=== PATIENT | female | born 1950 | race Caucasian/White ===

== ENCOUNTER 2017-03-28 15:08 | Emergency (ER) | payer MEDICARE, OTHER ==
[2017-03-28] MEDS ORDERED: NEOSYNEPHRINE 0.5% NASAL SPRAY/DROPS NS ONE (15:37)
[2017-03-28] MEDS ORDERED: NEOSYNEPHRINE 0.5% NASAL SPRAY/DROPS ONE (15:44)
[2017-03-28 16:05] LABS: BASOPHIL % 0.6 % (0.0-0.4); Eosinophil % 6.2 % (0.00-5.0); Granulocytes % 56.4 % (36.0-66.0); Lymphocytes % 25.8 % (24.0-44.0); Mean Cell Volume 87.9 fl (78-100); Mean Corpuscular Hemoglobin 28.5 pg (26-32); Mean Platelet Volume 10.9 fl (6-9.5); Platelet Count 222 K/mm3 (150-450); Red Blood Count 4.73 M/mm3 (4.1-5.4); Red Cell Distribution Width 13.7 % (11.5-14.0); White Blood Count 6.7 K/mm3 (4.0-10.5)
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
[2017-03-28 16:21] LABS: ANION GAP 13.1 MEQ/L (5-15); Carbon Dioxide 28.5 mEq/L (21-32); Potassium 4.6 mEq/L (3.5-5.1)
[2017-03-28 16:29] LABS: INR 0.96 (0.8-3.0); PROTIME 10.8 SECONDS (9.95-12.35)
[2017-03-28 16:31] LABS: PTT 30.9 SECONDS (25.3-37.0)
[2017-03-28] MEDS ORDERED: BACIGUENT PACKET TP ONE (16:43)
[2017-03-28] MEDS ORDERED: BACIGUENT PACKET ONE (16:46)
[2017-03-28 16:51] VITALS: BP 158/81; PULSE 86; O2SAT 97
== END 2017-03-28 16:51 | disposition home or self-care (01) ==
LOC: ED 15:08
DX: R04.0 Epistaxis (principal); I10 Essential (primary) hypertension; R73.9 Hyperglycemia, unspecified; R51 Headache
CPT/HCPCS: 36415; 80048; 85025; 85610; 85730; 99282; A9270-GY

== ENCOUNTER 2018-08-13 10:57 | Emergency (ER) | payer MEDICARE, OTHER ==
[2018-08-13] MEDS ORDERED: Sodium Chloride 0.9% 1000 ML 1,000 ML IV STA (11:13)
[2018-08-13 11:23] VITALS: O2SAT 100
[2018-08-13] MEDS ORDERED: PROTONIX 40 MG IV*** 80 MG in Sodium Chloride 0.9% 500 ML 500 ML IV SCH (11:30)
--- NOTE | 2018-08-13 11:36 | ERPHSYRPT ---
- History of Present Illness Source: patient Exam Limitations: no limitations Patient Subjective Stated Complaint: george has a martinez of dark stool this AM. states was sticky, did not see red. has a hx of diarrhea/hemorrhoids. Triage Nursing Assessment: alert and oriented in no distress. george had an episode of dark sticky stool this AM. denies abdominal pain at this time. soft non tender. states has hx hemorrhoids. skin pink, warm/dry. Physician History: Pt is a pleasant 67 y/o female that presented to the ED, with recent BM that was sticky, maroon colored, and hard to clean. Pt states, has history of external hemorrhoids, Colonoscopy that was done about 5-6 years ago, that showed polyps that were removed. Pt does not remember any diverticulosis. Pt states, she is taking Ibuprofen, several times weekly for BISWAS. She is on ASA 81mg daily as well. Pt denies N/V or abdominal pain. Pt denies SOB or cough. No chest pain or palpitations. No F/C/S. Pt states, only 1 melanotic stool today. Timing/Duration: today Severity: moderate Modifying Factors: Improves With: nothing Associated Symptoms: denies symptoms Allergies/Adverse Reactions: Penicillins Allergy (Verified 08/13/18 11:56) Tightness of Throat Sulfa (Sulfonamide Antibiotics) Allergy (Verified 08/13/18 11:56) Nausea Home Medications: Insulin Aspart [NovoLOG Insulin] 15 unit SQ TID 11/05/14 [History] Insulin Glargine [Lantus Insulin] 30 unit SQ DAILY 11/05/14 [History] Aspirin EC 325 mg [Ecotrin 325 MG] 325 mg PO DAILY 07/01/15 [History] Hx Tetanus, Diphtheria Vaccination/Date Given: No Hx Influenza Vaccination/Date Given: Yes Hx Pneumococcal Vaccination/Date Given: Yes - Review of Systems Constitutional: No Symptoms Eyes: No Symptoms Ears, Nose, & Throat: No Symptoms Respiratory: No Symptoms Cardiac: No Symptoms Abdominal/Gastrointestinal: Melena Genitourinary Symptoms: No Symptoms Musculoskeletal: No Symptoms Skin: No Symptoms Neurological: No Symptoms Psychological: No Symptoms - Past Medical History Pertinent Past Medical History: Yes Neurological History: TIA ENT History: No Pertinent History Cardiac History: High Cholesterol, Hypertension Respiratory History: No Pertinent History Endocrine Medical History: Diabetes Type II Musculoskeletal History: No Pertinent History GI Medical History: GERD, Gallbladder Disease History: No Pertinent History Psycho-Social History: No Pertinent History Female Reproductive Disorders: No Pertinent History - Past Surgical History Past Surgical History: Yes Neuro Surgical History: No Pertinent History Cardiac: No Pertinent History Respiratory: No Pertinent History Gastrointestinal: Cholecystectomy Genitourinary: No Pertinent History Musculoskeletal: No Pertinent History Female Surgical History: No Pertinent History Other Surgical History: colonoscopy w/ polyps removed - Social History Smoking Status: Never smoker How long have you smoked: 11 years Exposure to second hand smoke: No Alcohol Use: None Drug Use: none Patient Lives Alone: No Significant Family History: no pertinent family hx - Female History Hx Now: No - Nursing Vital Signs Nursing Vital Signs: Initial Vital Signs Temperature 97.5 F 08/13/18 11:07 Pulse Rate 72 08/13/18 11:07 Respiratory Rate 18 08/13/18 11:07 Blood Pressure 153/88 08/13/18 11:07 O2 Sat by Pulse Oximetry 100 08/13/18 11:07 Pain Scale Pain Intensity 0 - Physical Exam General Appearance: no apparent distress Eye Exam: PERRL/EOMI, eyes nml inspection Ears, Nose, Throat Exam: normal ENT inspection, TMs normal, pharynx normal, moist mucous membranes Neck Exam: normal inspection, non-tender, supple, full range of motion Respiratory Exam: normal breath sounds, lungs clear, No respiratory distress Cardiovascular Exam: regular rate/rhythm, normal heart sounds, normal peripheral pulses Gastrointestinal/Abdomen Exam: soft, normal bowel sounds, No tenderness, No mass Rectal Exam: hemorrhoids, black stool, blood Back Exam: normal inspection, normal range of motion, No CVA tenderness, No vertebral tenderness Extremity Exam: normal inspection, normal range of motion, pelvis stable Neurologic Exam: alert, oriented x 3, cooperative, normal mood/affect, nml cerebellar function, nml station & gait, sensation nml, No motor deficits Skin Exam: normal color, warm, dry, No rash Lymphatic Exam: No adenopathy SpO2: 100 Oxygen Delivery: Room Air Ordered Tests: Active Orders 24 hr Category Date Time Status IV Insertion-2nd Peripheral STAT Care 08/13/18 11:13 Active CBC W DIFF Stat Lab 08/13/18 11:35 Completed CMP Stat Lab 08/13/18 11:35 Completed Lactic Acid Stat Lab 08/13/18 11:35 Completed Occult Blood,Stool Other Stat Lab 08/13/18 11:35 Completed PROTIME WITH INR Stat Lab 08/13/18 11:35 Completed PTT Stat Lab 08/13/18 11:35 Completed Medication Summary Discontinued Medications Generic Name Dose Route Start Last Admin Trade Name [place] PRN Reason Stop Dose Admin Sodium Chloride 1,000 mls @ 999 mls/hr 08/13/18 11:13 08/13/18 11:46 Sodium Chloride 0.9% 1000 Ml IV 08/13/18 12:13 999 mls/hr .Q1H1M STA Administration Pantoprazole Sodium 80 mg/ 500 mls @ 50 mls/hr 08/13/18 11:30 08/13/18 11:47 Sodium Chloride IV 09/12/18 11:29 Not Given .Q10H JUAN F Sodium Chloride Confirm 08/13/18 11:39 Sodium Chloride 0.9% 1000 Ml Administered 08/13/18 11:40 Dose 1,000 mls @ ud .ROUTE .[facility] ONE Pantoprazole Sodium Confirm 08/13/18 11:39 Protonix 40 Mg Iv Administered 08/13/18 11:40 Dose 80 mg IV .STK-[facility] ONE Pantoprazole Sodium 80 mg 08/13/18 11:42 08/13/18 11:45 Protonix 40 Mg Iv IV 08/13/18 11:43 80 mg STAT ONE Administration Lab/Rad Data: Laboratory Result Diagrams 08/13/18 11:35 08/13/18 11:35 Laboratory Results 08/13/18 08/13/18 08/13/18 Range/Units 11:35 11:35 11:35 WBC (4.0-10.5) K/mm3 RBC (4.1-5.4) M/mm3 Hgb (12.0-16.0) gm/dl Hct (35-47) % MCV (78-100) fl MCH (26-32) pg MCHC (32-36) g/dl RDW (11.5-14.0) % Plt Count (150-450) K/mm3 MPV (6-9.5) fl Gran % (36.0-66.0) % Eos # (Auto) (0-0.5) Absolute Lymphs (auto) (1.0-4.6) Absolute Monos (auto) (0.0-1.3) Lymphocytes % (24.0-44.0) % Monocytes % (0.0-12.0) % Eosinophils % (0.00-5.0) % Basophils % (0.0-0.4) % Absolute Granulocytes (1.4-6.9) Basophils # (0-0.4) PT 12.0 (9.95-12.35) SECONDS INR 1.03 (0.8-3.0) APTT 29.6 (25.3-37.0) SECONDS Sodium 141 (137-145) mmol/L Potassium 4.5 (3.5-5.1) mmol/L Chloride 104 (98-107) mmol/L Carbon Dioxide 28 (22-30) mmol/L Anion Gap 13.3 (5-15) MEQ/L BUN 17 (7-17) mg/dL Creatinine 0.85 (0.52-1.04) mg/dL Estimated GFR > 60.0 ML/MIN Glucose 115 H (74-106) mg/dL Lactic Acid (0.4-2.0) Calcium 9.3 (8.4-10.2) mg/dL Total Bilirubin 0.50 (0.2-1.3) mg/dL AST 39 H (14-36) U/L ALT 31 (0-35) U/L Alkaline Phosphatase 142 H (38-126) U/L Serum Total Protein 7.2 (6.3-8.2) g/dL Albumin 4.1 (3.5-5.0) g/dL Stool Occult Blood POSITIVE (Negative) 08/13/18 08/13/18 Range/Units 11:35 11:35 WBC 6.5 (4.0-10.5) K/mm3 RBC 4.32 (4.1-5.4) M/mm3 Hgb 12.5 (12.0-16.0) gm/dl Hct 39.1 (35-47) % MCV 90.5 (78-100) fl MCH 28.9 (26-32) pg MCHC 32.0 (32-36) g/dl RDW 13.2 (11.5-14.0) % Plt Count 180 (150-450) K/mm3 MPV 11.3 H (6-9.5) fl Gran % 55.6 (36.0-66.0) % Eos # (Auto) 0.58 H (0-0.5) Absolute Lymphs (auto) 1.52 (1.0-4.6) Absolute Monos (auto) 0.75 (0.0-1.3) Lymphocytes % 23.5 L (24.0-44.0) % Monocytes % 11.6 (0.0-12.0) % Eosinophils % 9.0 H (0.00-5.0) % Basophils % 0.3 (0.0-0.4) % Absolute Granulocytes 3.59 (1.4-6.9) Basophils # 0.02 (0-0.4) PT (9.95-12.35) SECONDS INR (0.8-3.0) APTT (25.3-37.0) SECONDS Sodium (137-145) mmol/L Potassium (3.5-5.1) mmol/L Chloride (98-107) mmol/L Carbon Dioxide (22-30) mmol/L Anion Gap (5-15) MEQ/L BUN (7-17) mg/dL Creatinine (0.52-1.04) mg/dL Estimated GFR ML/MIN Glucose (74-106) mg/dL Lactic Acid 1.2 (0.4-2.0) Calcium (8.4-10.2) mg/dL Total Bilirubin (0.2-1.3) mg/dL AST (14-36) U/L ALT (0-35) U/L Alkaline Phosphatase (38-126) U/L Serum Total Protein (6.3-8.2) g/dL Albumin (3.5-5.0) g/dL Stool Occult Blood (Negative) - Progress Progress: unchanged Will see patient in: office Counseled pt/family regarding: lab results, diagnosis, need for follow-up - Departure Time of Disposition: 01:20 Departure Disposition: Home Clinical Impression: Upper GI bleed Condition: Stable Critical Care Time: No Referrals: SUSIE CARTER NP [Primary Care Provider] - Additional Instructions: Pt was diagnosed with upper GI bleed. She has stable Hgb above 12. No more melanotic stool. Given Protonix 80mg IV once. Appointment with ASHLEY Pedroza was scheduled for the upcoming Saturday at 2:45pm. Pt should stop her ASA 325mg daily, and avoid NSAIDs. She should continue Protonix daily. Prescription was given. Pt should f/u with her PCP in a week. Prescriptions: PANTOPRAZOLE 40 mg Tablet [Protonix 40MG Tablet] 40 mg PO QAM 30 Days tab
[2018-08-13] MEDS ORDERED: Sodium Chloride 0.9% 1000 ML 1,000 ML ONE (11:39)
[2018-08-13] MEDS ORDERED: PROTONIX 40 MG IV IV ONE ×2 (11:39→11:42)
[2018-08-13 11:43] LABS: BASOPHIL % 0.3 % (0.0-0.4); Basophil (Absolute #) 0.02 (0-0.4); Eosinophil (Absolute #) 0.58 (0-0.5); Granulocyte Absolute (ANC) 3.59 (1.4-6.9); Granulocytes % 55.6 % (36.0-66.0); Hematocrit 39.1 % (35-47); Hemoglobin 12.5 gm/dl (12.0-16.0); Lymphocyte (Absolute #) 1.52 (1.0-4.6); Lymphocytes % 23.5 % (24.0-44.0); Mean Cell Volume 90.5 fl (78-100); Mean Corpuscular Hemoglobin 28.9 pg (26-32); Mean Platelet Volume 11.3 fl (6-9.5); Monocyte (Absolute #) 0.75 (0.0-1.3); Monocytes % 11.6 % (0.0-12.0); Platelet Count 180 K/mm3 (150-450); Red Blood Count 4.32 M/mm3 (4.1-5.4); Red Cell Distribution Width 13.2 % (11.5-14.0); White Blood Count 6.5 K/mm3 (4.0-10.5)
[2018-08-13 12:00] VITALS: PULSE 78
[2018-08-13 12:00] LABS: INR 1.03 (0.8-3.0)
[2018-08-13 12:03] LABS: PTT 29.6 SECONDS (25.3-37.0)
[2018-08-13 12:05] LABS: ALBUMIN 4.1 g/dL (3.5-5.0); ALKALINE PHOSPHATASE 142 U/L (38-126); ANION GAP 13.3 MEQ/L (5-15); BLOOD UREA NITROGEN 17 mg/dL (7-17); CHLORIDE 104 mmol/L (98-107); Calcium 9.3 mg/dL (8.4-10.2); Carbon Dioxide 28 mmol/L (22-30); Creatinine 1 0.85 mg/dL (0.52-1.04); Glucose 115 mg/dL (74-106); Potassium 4.5 mmol/L (3.5-5.1); SGOT/AST 39 U/L (14-36); SGPT/ALT 31 U/L (0-35); SODIUM 141 mmol/L (137-145); Total Protein 7.2 g/dL (6.3-8.2)
[2018-08-13 13:23] VITALS: BP 153/88
== END 2018-08-13 13:55 | disposition home or self-care (01) ==
LOC: ED 10:57
DX: K92.2 Gastrointestinal hemorrhage, unspecified (principal); E11.9 Type 2 diabetes mellitus without complications; Z79.4 Long term (current) use of insulin; Z79.82 Long term (current) use of aspirin
CPT/HCPCS: 36000; 36415; 80053; 82272; 82962; 83605; 85025; 85610; 85730; 96360; 96374; 99284

== ENCOUNTER 2018-11-06 10:45 | Emergency (ER) | payer MEDICARE, OTHER ==
[2018-11-06] MEDS ORDERED: Sodium Chloride 0.9% 1000 ML 1,000 ML IV STA (11:04)
[2018-11-06] MEDS ORDERED: Sodium Chloride 0.9% 1000 ML 1,000 ML ONE (11:10)
--- NOTE | 2018-11-06 11:11 | ERPHSYRPT ---
- History of Present Illness Time Seen by Provider: 11/06/18 10:59 Historian: patient Exam Limitations: no limitations Patient Subjective Stated Complaint: PT C/O ABD PAIN, NAUSEA, DIARRHEA FOR "AT LEAST A YEAR". PT STATES SHE HAD COLONOSCOPY 3 DAYS AGO AND TOLD SHE HAS A RECTAL PROLAPSE AND NEEDS SURGERY. PT STATES PAIN WORSENED LAST NIGHT. Triage Nursing Assessment: PINK/WARM/DRY, RESP EASY, A&OX4, GAIT NOT OBSERVED, ABD SOFT AND LUQ TENDER WITH PALPATION. Physician History: 67-year-old white female with history of TIA, hyperlipidemia, high blood pressure, diabetes type 2, GERD Who states that she's had abdominal pain nausea symptoms for a year he apparently left-sided lower abdominal pain She states that she has had an MRI secondary to this and she had a colonoscopy which was performed 3 days ago. She states that this morning around 3:00 she woke up feeling sweaty diaphoretic she states she took some orange juice and was feeling better. Medics were summoned and they gave her some Zofran for nausea and now she is feeling better she does state she continues to have some pain in her left lower quadrant. 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 Past medical history includes TIA, hyperlipidemia, high blood pressure, diabetes type 2, GERD, gallbladder disease, cholecystectomy, colonic polyps. Past surgical history includes cholecystectomy, colonic polyps through colonoscopy Social history patient denies tobacco alcohol or illicit drugs Timing/Duration: other (chronic abdominal pain, colonoscopy 3 days ago, woke up diaphoretic this morning improved with orange ju) Quality: aching, cramping Abdominal Pain Onset Location: LUQ Pain Radiation: no radiation Severity of Pain-Max: moderate Severity of Pain-Current: mild Modifying Factors: Improves With: nothing Associated Symptoms: nausea, No back, No chest pain, No diaphoresis, No diarrhea , No fever/chills, No fatigue, No headache, No heartburn, No loss of appetite, No neck pain, No rash, No shortness of breath, No syncope, No vomiting, No weakness Previous symptoms: recently seen (colonoscopy 3 days ago for the same, has had MRI of the abdomen for the same) Allergies/Adverse Reactions: Penicillins Allergy (Verified 11/06/18 10:46) Tightness of Throat Sulfa (Sulfonamide Antibiotics) Allergy (Verified 11/06/18 10:46) Nausea Home Medications: Insulin Aspart [NovoLOG Insulin] 15 unit SQ TID 11/05/14 [History] Insulin Glargine [Lantus Insulin] 30 unit SQ DAILY 11/05/14 [History] Aspirin EC 325 mg [Ecotrin 325 MG] 325 mg PO DAILY 07/01/15 [History] Hx Tetanus, Diphtheria Vaccination/Date Given: No Hx Influenza Vaccination/Date Given: Yes Hx Pneumococcal Vaccination/Date Given: Yes Immunizations Up to Date: Yes - Review of Systems Constitutional: No Symptoms Eyes: No Symptoms Ears, Nose, & Throat: No Symptoms Respiratory: No Cough, No Dyspnea Cardiac: No Chest Pain, No Edema, No Syncope Abdominal/Gastrointestinal: Abdominal Pain, Nausea, No Vomiting, No Diarrhea, No Constipation, No Hematemesis, No Hematochezia, No Melena, No Dysphagia, No Appetite Changes Genitourinary Symptoms: No Dysuria Musculoskeletal: No Back Pain, No Neck Pain Skin: No Rash Neurological: No Dizziness, No Focal Weakness, No Sensory Changes Psychological: No Symptoms Endocrine: No Symptoms All Other Systems: Reviewed and Negative - Past Medical History Pertinent Past Medical History: Yes Neurological History: TIA ENT History: No Pertinent History Cardiac History: High Cholesterol, Hypertension Respiratory History: No Pertinent History Endocrine Medical History: Diabetes Type II Musculoskeletal History: No Pertinent History GI Medical History: GERD, Gallbladder Disease History: No Pertinent History Psycho-Social History: No Pertinent History Female Reproductive Disorders: No Pertinent History - Past Surgical History Past Surgical History: Yes Neuro Surgical History: No Pertinent History Cardiac: No Pertinent History Respiratory: No Pertinent History Gastrointestinal: Cholecystectomy Genitourinary: No Pertinent History Musculoskeletal: No Pertinent History Female Surgical History: No Pertinent History Other Surgical History: colonoscopy w/ polyps removed - Social History Smoking Status: Never smoker How long have you smoked: 11 years Exposure to second hand smoke: No Alcohol Use: None Drug Use: none Patient Lives Alone: Yes Significant Family History: no pertinent family hx - Female History Hx Now: No - Nursing Vital Signs Nursing Vital Signs: Initial Vital Signs Temperature 98.5 F 11/06/18 10:48 Pulse Rate 88 11/06/18 10:48 Respiratory Rate 16 11/06/18 10:48 Blood Pressure 134/70 11/06/18 10:48 O2 Sat by Pulse Oximetry 100 11/06/18 10:48 Pain Scale Pain Intensity 0 - Physical Exam General Appearance: no apparent distress, alert Eye Exam: PERRL/EOMI, eyes nml inspection Ears, Nose, Throat Exam: normal ENT inspection, pharynx normal, moist mucous membranes Neck Exam: normal inspection, non-tender, supple, full range of motion Respiratory Exam: normal breath sounds, lungs clear, No respiratory distress Cardiovascular Exam: regular rate/rhythm, normal heart sounds Gastrointestinal/Abdomen Exam: soft, normal bowel sounds, tenderness (left lower quadrant tenderness) Rectal Exam: other (few hemorrhoids, no prolapse noted) Back Exam: normal inspection, normal range of motion, No CVA tenderness, No vertebral tenderness Extremity Exam: normal inspection, normal range of motion, pelvis stable Neurologic Exam: alert, oriented x 3, cooperative, 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 No infiltrates to suggest pneumonia or other acute cardiopulmonary disease is seen 2. No evidence of bowel obstruction however there are some scattered air-fluid levels within the right lower quadrant and left hemicolon, perhaps due to an ileus. No free intraperitoneal air is seen) Ordered Tests: Active Orders 24 hr Category Date Time Status EKG-ER Only STAT Care 11/06/18 13:39 Active IV Insertion STAT Care 11/06/18 11:04 Active OBSTR/ACUTE ABDOMEN SERIES Stat Exams 11/06/18 12:14 Completed AMYLASE Stat Lab 11/06/18 11:05 Completed CBC W DIFF Stat Lab 11/06/18 11:04 Completed CMP Stat Lab 11/06/18 11:05 Completed LIPASE Stat Lab 11/06/18 11:05 Completed Lactic Acid Stat Lab 11/06/18 11:32 Completed UA W/RFX UR CULTURE Stat Lab 11/06/18 Completed Medication Summary Discontinued Medications Generic Name Dose Route Start Last Admin Trade Name [place] PRN Reason Stop Dose Admin Sodium Chloride 1,000 mls @ 999 mls/hr 11/06/18 11:04 11/06/18 11:11 Sodium Chloride 0.9% 1000 Ml IV 11/06/18 12:04 999 mls/hr .Q1H1M STA Administration Sodium Chloride Confirm 11/06/18 11:10 Sodium Chloride 0.9% 1000 Ml Administered 11/06/18 11:11 Dose 1,000 mls @ ud .ROUTE .STK-MED ONE Lab/Rad Data: Laboratory Result Diagrams 11/06/18 11:04 11/06/18 11:05 Laboratory Results 11/06/18 11/06/18 11/06/18 Range/Units Unknown 11:32 11:05 WBC (4.0-10.5) K/mm3 RBC (4.1-5.4) M/mm3 Hgb (12.0-16.0) gm/dl Hct (35-47) % MCV (78-100) fl MCH (26-32) pg MCHC (32-36) g/dl RDW (11.5-14.0) % Plt Count (150-450) K/mm3 MPV (6-9.5) fl Gran % (36.0-66.0) % Eos # (Auto) (0-0.5) Absolute Lymphs (auto) (1.0-4.6) Absolute Monos (auto) (0.0-1.3) Lymphocytes % (24.0-44.0) % Monocytes % (0.0-12.0) % Eosinophils % (0.00-5.0) % Basophils % (0.0-0.4) % Absolute Granulocytes (1.4-6.9) Basophils # (0-0.4) Sodium 139 (137-145) mmol/L Potassium 4.4 (3.5-5.1) mmol/L Chloride 101 (98-107) mmol/L Carbon Dioxide 25 (22-30) mmol/L Anion Gap 17.0 H (5-15) MEQ/L BUN 19 H (7-17) mg/dL Creatinine 1.07 H (0.52-1.04) mg/dL Estimated GFR 54.0 ML/MIN Glucose 137 H (74-106) mg/dL Lactic Acid 1.8 (0.4-2.0) Calcium 9.2 (8.4-10.2) mg/dL Total Bilirubin 0.90 (0.2-1.3) mg/dL AST 73 H (14-36) U/L ALT 44 H (0-35) U/L Alkaline Phosphatase 172 H (38-126) U/L Serum Total Protein 8.3 H (6.3-8.2) g/dL Albumin 4.6 (3.5-5.0) g/dL Amylase 72 (30-110) U/L Lipase 70 (23-300) U/L Urine Color YELLOW (YELLOW) Urine Appearance CLEAR (CLEAR) Urine pH 5.0 (5-6) Ur Specific [place] 1.024 (1.005-1.025) Urine Protein NEGATIVE (Negative) Urine Ketones NEGATIVE (NEGATIVE) Urine Blood NEGATIVE (0-5) Karlo/ul Urine Nitrite NEGATIVE (NEGATIVE) Urine Bilirubin NEGATIVE (NEGATIVE) Urine Urobilinogen NEGATIVE (0-1) mg/dL Ur Leukocyte Esterase NEGATIVE (NEGATIVE) Urine WBC (Auto) NONE (0-5) /HPF Urine RBC (Auto) NONE SEEN (0-2) /HPF U Epithel Cells (Auto) NONE (FEW) /HPF Urine Bacteria (Auto) NONE SEEN (NEGATIVE) /HPF Urine Culture Reflexed NO (NO) Urine Glucose >=500 (NEGATIVE) mg/dL 11/06/18 Range/Units 11:04 WBC 16.1 H (4.0-10.5) K/mm3 RBC 5.20 (4.1-5.4) M/mm3 Hgb 14.9 (12.0-16.0) gm/dl Hct 46.6 (35-47) % MCV 89.6 (78-100) fl MCH 28.7 (26-32) pg MCHC 32.0 (32-36) g/dl RDW 14.1 H (11.5-14.0) % Plt Count 201 (150-450) K/mm3 MPV 10.5 H (6-9.5) fl Gran % 87.8 H (36.0-66.0) % Eos # (Auto) 0.01 (0-0.5) Absolute Lymphs (auto) 0.98 L (1.0-4.6) Absolute Monos (auto) 0.95 (0.0-1.3) Lymphocytes % 6.1 L (24.0-44.0) % Monocytes % 5.9 (0.0-12.0) % Eosinophils % 0.1 (0.00-5.0) % Basophils % 0.1 (0.0-0.4) % Absolute Granulocytes 14.11 H (1.4-6.9) Basophils # 0.02 (0-0.4) Sodium (137-145) mmol/L Potassium (3.5-5.1) mmol/L Chloride (98-107) mmol/L Carbon Dioxide (22-30) mmol/L Anion Gap (5-15) MEQ/L BUN (7-17) mg/dL Creatinine (0.52-1.04) mg/dL Estimated GFR ML/MIN Glucose (74-106) mg/dL Lactic Acid (0.4-2.0) Calcium (8.4-10.2) mg/dL Total Bilirubin (0.2-1.3) mg/dL AST (14-36) U/L ALT (0-35) U/L Alkaline Phosphatase (38-126) U/L Serum Total Protein (6.3-8.2) g/dL Albumin (3.5-5.0) g/dL Amylase (30-110) U/L Lipase (23-300) U/L Urine Color (YELLOW) Urine Appearance (CLEAR) Urine pH (5-6) Ur Specific [place] (1.005-1.025) Urine Protein (Negative) Urine Ketones (NEGATIVE) Urine Blood (0-5) Karlo/ul Urine Nitrite (NEGATIVE) Urine Bilirubin (NEGATIVE) Urine Urobilinogen (0-1) mg/dL Ur Leukocyte Esterase (NEGATIVE) Urine WBC (Auto) (0-5) /HPF Urine RBC (Auto) (0-2) /HPF U Epithel Cells (Auto) (FEW) /HPF Urine Bacteria (Auto) (NEGATIVE) /HPF Urine Culture Reflexed (NO) Urine Glucose (NEGATIVE) mg/dL - Progress Progress: improved Progress Note: 11/06/18 13:42 Arrives with medics with complaint that she felt like her sugars were low earlier today she took orange juice apparently was feeling better after taking this when medics arrived patient with normal glucose she states that she has a 1 year history of abdominal pain had a colonoscopy several days ago and had recently had an MRI of her abdomen she was tender in the left lower quadrant of the abdomen. Patient is feeling better after receiving 1 L of normal saline she does have a mild elevated white count of 16.1 hemoglobin is 14.9 hematocrit 46.6 platelets are 201 patient's amylase is 72 lipase is 70 urine is yellow there is greater than 500 glucose in the urine Chemistry sodium 139 potassium 4.4 chloride 101 bicarbonate 25 BUN 19 creatinine 1.07 glucose 137 The patient's acute abdominal series remarkable for no acute disease process on the chest abdomen remarkable for no evidence of bowel obstruction there are some scattered air-fluid levels within the right lower quadrant and left hemicolon perhaps due to ileus no free intraperitoneal air is seen patient is noted to have just had a colonoscopy Will go ahead and discharge patient patient to go to clear fluids 24-48 hours if abdominal pain. Follow-up with her family doctor. Return for acute distress or for severe symptoms. . - Departure Time of Disposition: 13:50 Departure Disposition: Home Clinical Impression: history of recent colonoscopy, Suspected hypoglycemic episode Abdominal pain Qualifiers: Abdominal location: left lower quadrant Qualified Code(s): R10.32 - Left lower quadrant pain Condition: Fair Critical Care Time: No Referrals: SUSIE CARTER NP [Primary Care Provider] -
[2018-11-06 11:34] LABS: BASOPHIL % 0.1 % (0.0-0.4); Basophil (Absolute #) 0.02 (0-0.4); Eosinophil % 0.1 % (0.00-5.0); Eosinophil (Absolute #) 0.01 (0-0.5); Granulocyte Absolute (ANC) 14.11 (1.4-6.9); Granulocytes % 87.8 % (36.0-66.0); Hematocrit 46.6 % (35-47); Hemoglobin 14.9 gm/dl (12.0-16.0); Lymphocyte (Absolute #) 0.98 (1.0-4.6); Lymphocytes % 6.1 % (24.0-44.0); Mean Cell Volume 89.6 fl (78-100); Mean Corpuscular Hemoglobin 28.7 pg (26-32); Mean Platelet Volume 10.5 fl (6-9.5); Monocyte (Absolute #) 0.95 (0.0-1.3); Monocytes % 5.9 % (0.0-12.0); Platelet Count 201 K/mm3 (150-450); Red Cell Distribution Width 14.1 % (11.5-14.0); White Blood Count 16.1 K/mm3 (4.0-10.5)
[2018-11-06 11:47] LABS: ALBUMIN 4.6 g/dL (3.5-5.0); BILIRUBIN,TOTAL 0.9 mg/dL (0.2-1.3); Calcium 9.2 mg/dL (8.4-10.2); Creatinine 1 1.07 mg/dL (0.52-1.04); Potassium 4.4 mmol/L (3.5-5.1); Total Protein 8.3 g/dL (6.3-8.2)
[2018-11-06 12:20] LABS: Appearance CLEAR (CLEAR); Bilirubin NEGATIVE (NEGATIVE); Blood NEGATIVE Ery/ul (0-5); Glucose >=500 mg/dL (NEGATIVE); Ketones NEGATIVE (NEGATIVE); Leukocyte Esterase NEGATIVE (NEGATIVE); Nitrite NEGATIVE (NEGATIVE); Protein,Urine Dip NEGATIVE (Negative); Specific Gravity 1.024 (1.005-1.025); Urobilinogen NEGATIVE mg/dL (0-1)
[2018-11-06 12:28] LABS: RBC NONE SEEN /HPF (0-2)
[2018-11-06 12:29] LABS: Bacteria NONE SEEN /HPF (NEGATIVE)
--- NOTE | 2018-11-06 13:29 | XRAY ---
Exam: Acute abdominal series from 11/06/2018. Comparison: None. Indication: Complains of left lower quadrant abdominal pain, history of recent colonoscopy, lethargic. Findings: Upright PA chest film reveals a normal heart size and contour. Mild atherosclerotic calcification within the aortic arch and slight tortuosity of the descending thoracic aorta are seen. The nadira and mediastinal structures appear unremarkable. There is adequate inflation of the lung granado. The pulmonary vascularity appears within normal limits. There is a small calcified granuloma at the lateral right lung base. No air space infiltrates, pneumothorax, or pleural fluid is seen. 2 supine images and an upright image of the abdomen were obtained. I see no evidence of bowel distention. However, I do note some scattered air-fluid levels within distal small bowel within the right lower quadrant and within the left hemicolon. This may be due to a mild ileus. There is no evidence of bowel obstruction or free intraperitoneal air. No hepatosplenomegaly is seen. External leads overlie the left upper quadrant. Surgical clips consistent with prior cholecystectomy are seen within the right upper quadrant. No suspicious abdominal calcifications are seen. There is a minimal rotary dextroscoliosis centered at L2 on the upright image. Moderate degenerative changes are seen at L4 and L5. Otherwise, the bones appear grossly intact. The psoas muscle margins are well seen bilaterally. The urinary bladder is mildly distended. Impression: 1. No infiltrates to suggest pneumonia or other acute cardiopulmonary disease is seen. 2. I see no evidence of bowel obstruction. However, there are some scattered air-fluid levels within the right lower quadrant and left hemicolon, perhaps due to an ileus. No free intraperitoneal air is seen. 3. Other incidental findings, as discussed above.
[2018-11-06 14:37] VITALS: BP 140/68; PULSE 85; O2SAT 93
== END 2018-11-06 14:47 | disposition home or self-care (01) ==
LOC: ED 10:45
DX: R10.32 Left lower quadrant pain (principal); Z98.890 Other specified postprocedural states; I10 Essential (primary) hypertension; E78.00 Pure hypercholesterolemia, unspecified; E11.9 Type 2 diabetes mellitus without complications; F41.9 Anxiety disorder, unspecified; Z86.010 Personal history of colon polyps; E78.5 Hyperlipidemia, unspecified; Z86.73 Personal history of transient ischemic attack (TIA), and cerebral infarction without residual deficits
CPT/HCPCS: 36000; 36415; 74022; 80053; 81001; 82150; 83605; 83690; 85025; 93005; 96360; 99284

== ENCOUNTER 2019-03-18 11:34 | Emergency (ER) | payer MEDICARE, OTHER ==
--- NOTE | 2019-03-18 12:09 | ERPHSYRPT ---
- History of Present Illness Time Seen by Provider: 03/18/19 11:59 Source: patient Exam Limitations: no limitations Patient Subjective Stated Complaint: Was running errands when she suddenly became extremely weak, dizzy, and left arm feels numb and tingly Triage Nursing Assessment: Pt brought to the ER in a wheelchair, appears lethargic, hypertensive, pulses normal, denies pain, PERRL, no difficulties with strength Physician History: 68-year-old white female arrives with complaints that she was out running errands at approximately 10:00 when she suddenly began to feel weak, dizzy, felt like she had paresthesias in her left arm she did not have any movement problems did not have any problems speaking she states that she feels "disconnected" right now. She has no chest pain no nausea no vomiting no shortness of breath. Past medical history includes TIA, hyperlipidemia, high blood pressure, diabetes type 2, GERD, gallbladder disease. Past surgical history includes cholecystectomy colonoscopy with polyps. Timing/Duration: today (10:00 morning) Severity: mild Modifying Factors: Improves With: nothing Associated Symptoms: weakness, other (dizziness, paresthesia left arm), No nausea, No vomiting, No abdominal pain, No shortness of breath, No heartburn, No diaphoresis, No cough, No chills, No chest pain, No fever, No headaches, No loss of appetite, No malaise, No rash, No syncope, No seizure Allergies/Adverse Reactions: metformin Allergy (Verified 03/18/19 11:55) Penicillins Allergy (Verified 11/06/18 10:46) Tightness of Throat Sulfa (Sulfonamide Antibiotics) Allergy (Verified 11/06/18 10:46) Nausea Home Medications: Atorvastatin Calcium [Lipitor] 40 mg PO HS 03/18/19 [History] Dapagliflozin Propanediol [Farxiga] 10 mg PO DAILY 03/18/19 [History] Dulaglutide [Trulicity] 1.5 mg SQ WEEKLY 03/18/19 [History] Insulin Degludec [Tresiba Flextouch U-200] 40 units SQ DAILY 03/18/19 [History] Hx Tetanus, Diphtheria Vaccination/Date Given: No Hx Influenza Vaccination/Date Given: Yes Hx Pneumococcal Vaccination/Date Given: Yes - Review of Systems Constitutional: No Fever, No Chills Eyes: No Symptoms Ears, Nose, & Throat: No Symptoms Respiratory: No Cough, No Dyspnea Cardiac: No Chest Pain, No Edema, No Syncope Abdominal/Gastrointestinal: No Abdominal Pain, No Nausea, No Vomiting, No Diarrhea Genitourinary Symptoms: No Dysuria Musculoskeletal: No Back Pain, No Neck Pain Skin: No Rash Neurological: No Dizziness, No Focal Weakness, No Sensory Changes Psychological: No Symptoms Endocrine: No Symptoms All Other Systems: Reviewed and Negative - Past Medical History Pertinent Past Medical History: Yes Neurological History: TIA ENT History: No Pertinent History Cardiac History: High Cholesterol, Hypertension Respiratory History: No Pertinent History Endocrine Medical History: Diabetes Type II Musculoskeletal History: No Pertinent History GI Medical History: GERD, Gallbladder Disease History: No Pertinent History Psycho-Social History: No Pertinent History Female Reproductive Disorders: No Pertinent History - Past Surgical History Past Surgical History: Yes Neuro Surgical History: No Pertinent History Cardiac: No Pertinent History Respiratory: No Pertinent History Gastrointestinal: Cholecystectomy Genitourinary: No Pertinent History Musculoskeletal: No Pertinent History Female Surgical History: No Pertinent History Other Surgical History: colonoscopy w/ polyps removed - Social History Smoking Status: Former smoker How long have you smoked: 11 years Exposure to second hand smoke: No Alcohol Use: None Drug Use: none Patient Lives Alone: Yes Significant Family History: no pertinent family hx - Female History Hx Now: No - Nursing Vital Signs Nursing Vital Signs: Initial Vital Signs Temperature 98.2 F 03/18/19 11:46 Pulse Rate 70 03/18/19 11:46 Respiratory Rate 18 03/18/19 11:46 Blood Pressure 151/83 03/18/19 11:46 O2 Sat by Pulse Oximetry 97 03/18/19 11:46 Pain Scale Pain Intensity 0 - Physical Exam General Appearance: no apparent distress, alert Eye Exam: PERRL/EOMI, eyes nml inspection Ears, Nose, Throat Exam: normal ENT inspection, TMs normal, pharynx normal, moist mucous membranes Neck Exam: normal inspection, non-tender, supple, full range of motion Respiratory Exam: normal breath sounds, lungs clear, No respiratory distress Cardiovascular Exam: regular rate/rhythm, normal heart sounds, normal peripheral pulses, capillary refill <2 sec Gastrointestinal/Abdomen Exam: soft, normal bowel sounds, No tenderness, No mass Back Exam: normal inspection, normal range of motion, No CVA tenderness, No vertebral tenderness Extremity Exam: normal inspection, normal range of motion, pelvis stable Neurologic Exam: alert, oriented x 3, cooperative, 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 operator II-XII nml as tested, normal mood/affect, nml cerebellar function, nml station & gait, sensation nml, other (patient alert, oriented x3, cranial nerves II through XII intact, no facial droop, speech normal, normal finger to nose, hand spring repairer equal and symmetrical 5 over 5, no pronator drift, full range of motion to all extremities, sensation intact all extremities, [place] Coma Scale is 15), No motor deficits Skin Exam: normal color, warm, dry, No rash Lymphatic Exam: No adenopathy SpO2 Interpretation: normal (97%) SpO2: 97 - Course Nursing assessment & vital signs reviewed: Yes EKG Interpreted by Me: RATE (68 bpm), Sinus Rhythm, NORMAL AXIS, Other (EKG: Sinus rhythm, 60 beats per minute, normal axis, no acute ST or T wave changes, normal EKG) - Radiology Exams Chest X-ray Interpretation: Discussed w/ radiologist (chest x-ray: Lordotic AP upright chest film reveals no acute cardiopulmonary disease. Findings similar to November 06, 2018) - CT Exams Head CT Interpretation: Discussed w/radiologist (head CT: Impression 1. Stable appearance of CT of the head without IV contrast. As compared to July 02, 2015. No evidence of acute intracranial bleed or new low attenuation infarct. 2. There is either some focal ischemic white matter change or some white matter infarct adjacent to the lateral margin of the left caudate nucleus and frontal horn of the left lateral ventricle representing no change from July 02, 2015. Other more subtle chronic microvascular disease within the white matter is also seen. No other acute intracranial process is seen), Tele- radiologist Report Ordered Tests: Active Orders 24 hr Category Date Time Status Accucheck STAT Care 03/18/19 12:05 Active EKG-ER Only STAT Care 03/18/19 12:03 Active IV Insertion STAT Care 03/18/19 12:03 Active NPO (ED) STAT Care 03/18/19 12:05 Active Orthostatic Vital Signs STAT Care 03/18/19 12:06 Active CHEST 1 VIEW (PORTABLE) Stat Exams 03/18/19 12:04 Completed HEAD WITHOUT CONTRAST [CT] Stat Exams 03/18/19 12:05 Completed CBC W DIFF Stat Lab 03/18/19 13:10 Completed CMP Stat Lab 03/18/19 13:10 Completed Manual Differential NC Stat Lab 03/18/19 13:10 Completed TROPONIN Q3H Lab 03/18/19 13:10 Completed TROPONIN Q3H Lab 03/18/19 15:15 Ordered TROPONIN Q3H Lab 03/18/19 18:15 Ordered TROPONIN Q3H Lab 03/18/19 21:15 Ordered TROPONIN Q3H Lab 03/19/19 00:15 Ordered UA W/RFX UR CULTURE Stat Lab 03/18/19 13:27 Completed Medication Summary Generic Name Dose Route Start Last Admin Trade Name Freq PRN Reason Stop Dose Admin Sodium Chloride 1,000 mls @ 100 mls/hr 03/18/19 12:15 03/18/19 12:54 Sodium Chloride 0.9% 1000 Ml IV 04/17/19 12:14 100 mls/hr .Q10H JUAN F Administration Lab/Rad Data: Laboratory Result Diagrams 03/18/19 13:10 03/18/19 13:10 Laboratory Results 03/18/19 03/18/19 03/18/19 Range/Units 13:27 13:10 13:10 WBC (4.0-10.5) K/mm3 RBC (4.1-5.4) M/mm3 Hgb (12.0-16.0) gm/dl Hct (35-47) % MCV (78-100) fl MCH (26-32) pg MCHC (32-36) g/dl RDW (11.5-14.0) % Plt Count (150-450) K/mm3 MPV (6-9.5) fl Segmented Neutrophils (36.0-66.0) % Lymphocytes (Manual) (24-44) % Monocytes (Manual) (0.0-12.0) % Eosinophils (Manual) (0.00-3.0) % Platelet Estimate (NORMAL) RBC Morphology Sodium 140 (137-145) mmol/L Potassium 4.6 (3.5-5.1) mmol/L Chloride 106 (98-107) mmol/L Carbon Dioxide 24 (22-30) mmol/L Anion Gap 13.8 (5-15) MEQ/L BUN 21 H (7-17) mg/dL Creatinine 0.82 (0.52-1.04) mg/dL Estimated GFR > 60.0 ML/MIN Glucose 119 H (74-106) mg/dL Calcium 9.9 (8.4-10.2) mg/dL Total Bilirubin 0.60 (0.2-1.3) mg/dL AST 61 H (14-36) U/L ALT 38 H (0-35) U/L Alkaline Phosphatase 158 H (38-126) U/L Troponin I < 0.012 (0.000-0.034) ng/mL Serum Total Protein 8.1 (6.3-8.2) g/dL Albumin 4.2 (3.5-5.0) g/dL Urine Color YELLOW (YELLOW) Urine Appearance CLEAR (CLEAR) Urine pH 5.0 (5-6) Ur Specific [place] 1.021 (1.005-1.025) Urine Protein NEGATIVE (Negative) Urine Ketones NEGATIVE (NEGATIVE) Urine Blood NEGATIVE (0-5) Karlo/ul Urine Nitrite NEGATIVE (NEGATIVE) Urine Bilirubin NEGATIVE (NEGATIVE) Urine Urobilinogen NEGATIVE (0-1) mg/dL Ur Leukocyte Esterase NEGATIVE (NEGATIVE) Urine WBC (Auto) 0-2 (0-5) /HPF Urine RBC (Auto) NONE (0-2) /HPF U Epithel Cells (Auto) NONE (FEW) /HPF Urine Bacteria (Auto) NONE (NEGATIVE) /HPF Urine Mucus (Auto) SLIGHT (NEGATIVE) /HPF Urine Culture Reflexed NO (NO) Urine Glucose >=500 (NEGATIVE) mg/dL 03/18/19 Range/Units 13:10 WBC 7.8 (4.0-10.5) K/mm3 RBC 5.00 (4.1-5.4) M/mm3 Hgb 14.0 (12.0-16.0) gm/dl Hct 43.8 (35-47) % MCV 87.6 (78-100) fl MCH 28.0 (26-32) pg MCHC 32.0 (32-36) g/dl RDW 14.9 H (11.5-14.0) % Plt Count 189 (150-450) K/mm3 MPV 12.1 H (6-9.5) fl Segmented Neutrophils 73 H (36.0-66.0) % Lymphocytes (Manual) 20 L (24-44) % Monocytes (Manual) 4 (0.0-12.0) % Eosinophils (Manual) 3 (0.00-3.0) % Platelet Estimate NORMAL (NORMAL) RBC Morphology NORMAL Sodium (137-145) mmol/L Potassium (3.5-5.1) mmol/L Chloride (98-107) mmol/L Carbon Dioxide (22-30) mmol/L Anion Gap (5-15) MEQ/L BUN (7-17) mg/dL Creatinine (0.52-1.04) mg/dL Estimated GFR ML/MIN Glucose (74-106) mg/dL Calcium (8.4-10.2) mg/dL Total Bilirubin (0.2-1.3) mg/dL AST (14-36) U/L ALT (0-35) U/L Alkaline Phosphatase (38-126) U/L Troponin I (0.000-0.034) ng/mL Serum Total Protein (6.3-8.2) g/dL Albumin (3.5-5.0) g/dL Urine Color (YELLOW) Urine Appearance (CLEAR) Urine pH (5-6) Ur Specific [place] (1.005-1.025) Urine Protein (Negative) Urine Ketones (NEGATIVE) Urine Blood (0-5) Karlo/ul Urine Nitrite (NEGATIVE) Urine Bilirubin (NEGATIVE) Urine Urobilinogen (0-1) mg/dL Ur Leukocyte Esterase (NEGATIVE) Urine WBC (Auto) (0-5) /HPF Urine RBC (Auto) (0-2) /HPF U Epithel Cells (Auto) (FEW) /HPF Urine Bacteria (Auto) (NEGATIVE) /HPF Urine Mucus (Auto) (NEGATIVE) /HPF Urine Culture Reflexed (NO) Urine Glucose (NEGATIVE) mg/dL - Progress Progress: improved Progress Note: 03/18/19 14:06 Patient is feeling better states her symptoms have all resolved. She does state that she has had similar symptoms in the past when her sugars have gone lower that she is nutria bar prior to arrival. Patient's head CT stable appearance of the CT head without IV contrast as compared to July 02, 2015 no evidence of acute intracranial bleed or new will attenuation tentorial infarct patient's with chest x-ray lordotic AP upright chest film revealing no acute cardiopulmonary disease patient's EKG sinus rhythm 68 beats per minute normal axis no acute ST or T wave changes patient's urinalysis is normal patient's CBC is normal patient's chemistry remarkable for sodium 140 potassium 4.6 chloride 106 bicarbonate 24 BUN 21 creatinine 0.82 glucose 119 troponin within normal limits Patient's vitals are stable will discuss case with Dr. Campa anticipate discharge. . 03/18/19 14:13 Patient's case is discussed with Dr. Campa will release patient. Patient is to followup with Coco Reese. Will have patient return home rest plenty of fluids. Patient was not given aspirin because she states it causes problems with her stomach and has had bleeding in the past. - Departure Departure Disposition: Home Clinical Impression: Dizziness, Hypoglycemic episode in patient with diabetes mellitus, Paresthesia left hand resolved Condition: Fair Critical Care Time: No Referrals: SUSIE REESE, HARESH [Primary Care Provider] - Additional Instructions: Return home. Plenty of fluids. Monitor your blood sugars. Followup with Coco Reese. call and make an appointment return for acute distress or for severe symptoms or for any problems.
[2019-03-18] MEDS ORDERED: Sodium Chloride 0.9% 1000 ML 1,000 ML IV SCH (12:15)
[2019-03-18] MEDS ORDERED: Sodium Chloride 0.9% 1000 ML 1,000 ML ONE (12:52)
--- NOTE | 2019-03-18 13:10 | XRAY ---
Exam: AP upright portable chest film from 03/18/2019. Comparison: AP upright chest film from 11/06/2018. Indication: 68-year-old female with weakness, left arm numbness. Findings: The exam was obtained in a lordotic projection. The transverse heart size is normal. The nadira and mediastinal structures appear unremarkable. EKG leads are seen in place. A small calcified granuloma is again seen at the lateral right lung base. No infiltrates, vascular congestion, pneumothorax, or pleural fluid is seen. No other parenchymal lung abnormality is seen. The bones appear grossly intact. Surgical clips consistent with prior cholecystectomy are seen within the right upper quadrant. Impression: 1. Lordotic AP upright chest film revealing no acute cardiopulmonary disease. The findings appear similar to 11/06/2018.
[2019-03-18 13:11] VITALS: PULSE 69
--- NOTE | 2019-03-18 13:11 | XRAY ---
Exam: CT of the head without IV contrast from 03/18/2019. Comparison: CT of the head without IV contrast from 07/02/2015. Indication: 68-year-old female with sudden onset of weakness and left-sided arm numbness, history of old stroke. Technique: Non-IV contrast axial images were obtained through the brain. Reconstructed coronal and sagittal images were created and reviewed. Findings: The ventricles appear of normal size and configuration. No focal mass effect or midline shift is seen. No acute intracranial bleed or abnormal extra-axial fluid collection is seen. There is some stable low-attenuation density within the periventricular white matter adjacent to the anterior lateral aspect of the left frontal horn and caudate nucleus on the left. This is either due to chronic microvascular disease or an old white matter infarct. Again, it is unchanged. No new low attenuation territorial infarct is seen. Some other more subtle chronic small vessel white matter ischemic changes are seen. The cortical sulci and basilar cisterns appear unremarkable for the patient's age. Moderate atherosclerotic vascular calcification is seen within the distal internal carotid arteries bilaterally as well as the distal vertebral arteries, left greater than right. This is unchanged. The calvarium of the skull appears intact. The visualized paranasal sinuses appear clear without air-fluid levels. The mastoid air cells are clear without effusion. Impression: 1. Stable appearance of CT of the head without IV contrast, as compared to 07/02/2015. I see no evidence of acute intracranial bleed or new low attenuation territorial infarct. 2. There is either some chronic focal ischemic white matter change or old white matter infarct adjacent to the lateral margin of the left caudate nucleus and frontal horn of the left lateral ventricle representing no change from 07/02/2015. Other more subtle chronic microvascular disease within the white matter is also seen. 3. No other acute intracranial process is seen. Note: I personally called this report was called to the emergency Department at 12:55 PM on 03/18/2019.
[2019-03-18 13:23] LABS: Hematocrit 43.8 % (35-47); Mean Cell Volume 87.6 fl (78-100); Mean Platelet Volume 12.1 fl (6-9.5); Platelet Count 189 K/mm3 (150-450); Red Cell Distribution Width 14.9 % (11.5-14.0); White Blood Count 7.8 K/mm3 (4.0-10.5)
[2019-03-18 13:37] LABS: ALBUMIN 4.2 g/dL (3.5-5.0); ALKALINE PHOSPHATASE 158 U/L (38-126); ANION GAP 13.8 MEQ/L (5-15); BLOOD UREA NITROGEN 21 mg/dL (7-17); CHLORIDE 106 mmol/L (98-107); Calcium 9.9 mg/dL (8.4-10.2); Carbon Dioxide 24 mmol/L (22-30); Creatinine 1 0.82 mg/dL (0.52-1.04); Glucose 119 mg/dL (74-106); Potassium 4.6 mmol/L (3.5-5.1); SGOT/AST 61 U/L (14-36); SGPT/ALT 38 U/L (0-35); SODIUM 140 mmol/L (137-145); Total Protein 8.1 g/dL (6.3-8.2)
[2019-03-18 13:38] LABS: Appearance CLEAR (CLEAR); Bilirubin NEGATIVE (NEGATIVE); Blood NEGATIVE Ery/ul (0-5); Glucose >=500 mg/dL (NEGATIVE); Ketones NEGATIVE (NEGATIVE); Leukocyte Esterase NEGATIVE (NEGATIVE); Mucus SLIGHT /HPF (NEGATIVE); Nitrite NEGATIVE (NEGATIVE); Protein,Urine Dip NEGATIVE (Negative); Specific Gravity 1.021 (1.005-1.025); Urobilinogen NEGATIVE mg/dL (0-1); WBC 0-2 /HPF (0-5)
[2019-03-18 13:48] LABS: Eosinophil 3 % (0.00-3.0); Lymphocytes 20 % (24-44); Monocyte 4 % (0.0-12.0); Neutrophils 73 % (36.0-66.0); Total Cells Counted 100
[2019-03-18 13:49] LABS: Platelet Estimate NORMAL (NORMAL)
[2019-03-18 15:16] VITALS: BP 149/77; O2SAT 98
== END 2019-03-18 15:17 | disposition home or self-care (01) ==
LOC: ED 11:34
DX: R42 Dizziness and giddiness (principal); E11.649 Type 2 diabetes mellitus with hypoglycemia without coma; R20.2 Paresthesia of skin; I10 Essential (primary) hypertension; E78.00 Pure hypercholesterolemia, unspecified; Z86.73 Personal history of transient ischemic attack (TIA), and cerebral infarction without residual deficits; Z79.899 Other long term (current) drug therapy; E78.5 Hyperlipidemia, unspecified; K21.9 Gastro-esophageal reflux disease without esophagitis
CPT/HCPCS: 36415; 70450; 71045; 80053; 81001; 82962; 84484; 85025; 93005; 96360; 99284

== ENCOUNTER 2020-02-10 20:55 | Emergency (ER) | payer MEDICARE, OTHER ==
--- NOTE | 2020-02-10 21:04 | ERPHSYRPT ---
- History of Present Illness Time Seen by Provider: 02/10/20 21:03 Source: patient, family Exam Limitations: no limitations Physician History: Right-handed 69-year-old white female who presents with right elbow and right wrist pain. The dog was chasing a cat and the patient was walking the dog and the dog pulled the patient off of a step and she landed on her right elbow. Patient denies any other pain issues. Patient did not hit her head and she has no neck pain. Occurred: just prior to arrival Method of Injury: fell Quality: aching, throbbing Severity of Pain-Max: mild Severity of Pain-Current: mild Extremities Pain Location: elbow: right, forearm: right, wrist: right Allergies/Adverse Reactions: metformin Allergy (Verified 03/18/19 11:55) Penicillins Allergy (Verified 11/06/18 10:46) Tightness of Throat Sulfa (Sulfonamide Antibiotics) Allergy (Verified 11/06/18 10:46) Nausea Home Medications: Atorvastatin Calcium [Lipitor] 40 mg PO HS 03/18/19 [History] Dapagliflozin Propanediol [Farxiga] 10 mg PO DAILY 03/18/19 [History] Dulaglutide [Trulicity] 1.5 mg SQ WEEKLY 03/18/19 [History] Insulin Degludec [Tresiba Flextouch U-200] 40 units SQ DAILY 03/18/19 [History] Hx Tetanus, Diphtheria Vaccination/Date Given: No Hx Influenza Vaccination/Date Given: Yes Hx Pneumococcal Vaccination/Date Given: Yes Travel Risk - International Travel Have you traveled outside of the country in past 3 weeks: No Have you or anyone close to you been diagnosed with or: No Do your reside in a community with a known COVID-19 case?: Yes If Yes where:: [facility] - Coronavirus Screening Has patient experienced Coronavirus symptoms: No - Review of Systems Constitutional: No Symptoms Eyes: No Symptoms Ears, Nose, & Throat: No Symptoms Respiratory: No Symptoms Cardiac: No Symptoms Abdominal/Gastrointestinal: No Symptoms Genitourinary Symptoms: No Symptoms Musculoskeletal: Fall, Injury (Right elbow right wrist) Neurological: No Symptoms Psychological: No Symptoms Endocrine: No Symptoms Hematologic/Lymphatic: No Symptoms Immunological/Allergic: No Symptoms All Other Systems: Reviewed and Negative - Past Medical History Pertinent Past Medical History: Yes Neurological History: TIA ENT History: No Pertinent History Cardiac History: High Cholesterol, Hypertension Respiratory History: No Pertinent History Endocrine Medical History: Diabetes Type II Musculoskeletal History: No Pertinent History GI Medical History: GERD, Gallbladder Disease History: No Pertinent History Psycho-Social History: No Pertinent History Female Reproductive Disorders: No Pertinent History - Past Surgical History Past Surgical History: Yes Neuro Surgical History: No Pertinent History Cardiac: No Pertinent History Respiratory: No Pertinent History Gastrointestinal: Cholecystectomy Genitourinary: No Pertinent History Musculoskeletal: No Pertinent History Female Surgical History: No Pertinent History Other Surgical History: colonoscopy w/ polyps removed - Social History Smoking Status: Former smoker How long have you smoked: 11 years Exposure to second hand smoke: No Alcohol Use: None Drug Use: none Patient Lives Alone: Yes Significant Family History: no pertinent family hx - Nursing Vital Signs Nursing Vital Signs: Initial Vital Signs Temperature 98.3 F 02/10/20 21:43 Pulse Rate 75 02/10/20 21:43 Respiratory Rate 16 02/10/20 21:43 Blood Pressure 151/63 02/10/20 21:43 O2 Sat by Pulse Oximetry 96 02/10/20 21:43 Pain Scale Pain Intensity 7 - Physical Exam General Appearance: no apparent distress, alert, anxiety Eyes, Ears, Nose, Throat Exam: normal ENT inspection, moist mucous membranes Neck Exam: normal inspection, non-tender, supple, full range of motion Cardiovascular/Respiratory Exam: chest non-tender, no respiratory distress Abdominal Exam: non-tender Back Exam: normal inspection, normal range of motion, No CVA tenderness, No vertebral tenderness Shoulder Exam: normal inspection, non-tender, no evidence of injury, normal ROM Elbow/Forearm Exam: normal inspection, no evidence of injury, normal ROM, bone tenderness, soft tissue tenderness, No deformity Wrist Exam: normal inspection, no evidence of injury, bone tenderness, soft tissue tenderness, No normal ROM, No deformity Hand Exam: normal inspection, non-tender, no evidence of injury, normal ROM Neuro/Tendon Exam: normal sensation, normal motor functions, normal tendon functions Mental Status Exam: alert, oriented x 3, cooperative Skin Exam: normal color, warm, dry O2 Delivery: Room Air - Course Nursing assessment & vital signs reviewed: Yes Ordered Tests: Active Orders 24 hr Category Date Time Status Isolation, Initiate & Maintain Q4H Care 02/10/20 22:01 Active Sling Application STAT Care 02/10/20 23:55 Active Splint STAT Care 02/10/20 23:54 Active ELBOW (MINIMUM 3 VIEWS) Stat Exams 02/10/20 21:51 Taken FOREARM Stat Exams 02/10/20 21:51 Taken WRIST (MIN 3 VIEWS) Stat Exams 02/10/20 21:51 Taken Medication Summary Discontinued Medications Generic Name Dose Route Start Last Admin Trade Name [place] PRN Reason Stop Dose Admin Acetaminophen 650 mg 02/10/20 23:55 Tylenol 325 Mg PO 02/10/20 23:56 STAT STA Ibuprofen 600 mg 02/10/20 23:55 Motrin 600 Mg PO 02/10/20 23:56 STAT ONE - Progress Progress Note: 02/11/20 00:01 X-ray of right elbow reveals no acute fracture or dislocation; x-ray of right forearm reveals no acute fracture or dislocation; x-ray of right wrist reveals no acute fracture or dislocation 02/11/20 00:01 Patient only wants Tylenol and ibuprofen. She does not want anything stronger Counseled pt/family regarding: diagnosis, need for follow-up, rad results - Departure Departure Disposition: Home Clinical Impression: Fall with injury, Contusion of right upper extremity Condition: Stable Critical Care Time: No Referrals: SUSIE CARTER NP [Primary Care Provider] - Additional Instructions: Use wrist splint and sling for comfort. Ice pack to tender areas 3 times a day for the next 48 hours. Add Tylenol and ibuprofen for pain. Follow-up in [facility] orthopedic clinic for persistent symptoms.
[2020-02-10] MEDS ORDERED: MOTRIN 600 MG PO ONE (23:55)
[2020-02-10] MEDS ORDERED: TYLENOL 325 MG PO STA (23:55)
[2020-02-11] MEDS ORDERED: TYLENOL 325 MG ONE
[2020-02-11] MEDS ORDERED: MOTRIN 600 MG ONE
[2020-02-11 00:16] VITALS: PULSE 71
[2020-02-11 00:32] VITALS: BP 146/71; O2SAT 96
--- NOTE | 2020-02-11 09:11 | XRAY ---
Indication: Pain following fall. Comparison: None 3 view right elbow demonstrates mild osteopenia and mild ulnar trochlea degenerative changes. No other bony, articular, or soft tissue abnormalities.
--- NOTE | 2020-02-11 09:11 | XRAY ---
Indication: Pain following fall. Comparison: None 2 view right forearm demonstrates mild osteopenia. No other bony, articular, or soft tissue abnormalities. Elbow and wrist reported separately.
--- NOTE | 2020-02-11 09:15 | XRAY ---
Indication: Pain following fall. Comparison: None 3 view right wrist demonstrates mild osteopenia, mild 1st metacarpal multangular degenerative changes, widened scaphoid lunate interval concerning for underlying ligamentous tear/rotatory subluxed scaphoid, and mild posterior soft tissue swelling. No other bony, articular, or soft tissue abnormalities.
== END 2020-02-11 00:32 | disposition home or self-care (01) ==
LOC: ED 20:55
DX: S50.01XA Contusion of right elbow, initial encounter (principal); M79.631 Pain in right forearm; M25.531 Pain in right wrist; W17.89XA Other fall from one level to another, initial encounter; Y93.K1 Activity, walking an animal
CPT/HCPCS: 73080; 73090; 73110; 99284; L3908; A9270-GY

== ENCOUNTER 2022-08-04 14:40 | Emergency (ER) | payer MEDICARE ==
[2022-08-04 14:48] VITALS: BP 172/65
--- NOTE | 2022-08-04 15:03 | ERPHSYRPT ---
- History of Present Illness Time Seen by Provider: 08/04/22 14:44 Source: patient, EMS Exam Limitations: no limitations Patient Subjective Stated Complaint: PT ARRIVED PER AMBULANCE FOR A FALL GROND LEVEL. SHE STATES SHE MIS JUDGED THE CRUVE AND FELL LANDING ON RIGHT SIDE, CO PAIN TO RIGHT RIBS, AND RIGHT KNEE PAIN . NO LOC Triage Nursing Assessment: PT ALERT, RESP EASY, SKIN W/D/P. ABRASIONS TO RIGHT KNEE, MOVES ALL EXT WELL , PAIN TO RIGHT RIB AREA Physician History: 71 years old female with presented in the ER via EMS with a ground-level fall. Patient reports she was trying to get into her car and missed the curb in her driveway leading to fall, hitting her right knee and some abrasion on the left knee and also hit right side of chest. No difficulty breathing. Has chronic pain in the left shoulder. Patient received pain medication on the way to the ER via EMS and is able to move her knees without any limitation. Did not hit her head, no loss of consciousness. Denies any chest pain palpitations, s hortness of breath, nausea vomiting, numbness tingling or weakness before or after the falls. Occurred: just prior to arrival Reason for Fall: tripped Injuries/Pain Location: chest, lower extremity Loss of Consciousness: no loss of consciousness Quality: sharpness Severity of Pain-Max: moderate Severity of Pain-Current: mild Modifying Factors: Improves With: immobilization, pain medication. Worsens With: movement Associated Symptoms (Fall): chest pain, extremity injury, No abdominal pain, No back pain, No confusion, No dizziness, No headache, No lightheadedness, No mu scle spasms, No nausea, No neck pain, No seizures, No shortness of breath, No slurred speech, No trouble walking, No vomiting, No vision changes Allergies/Adverse Reactions: metformin Allergy (Verified 08/04/22 14:50) Penicillins Allergy (Verified 08/04/22 14:50) Tightness of Throat Sulfa (Sulfonamide Antibiotics) Allergy (Verified 08/04/22 14:50) Nausea Home Medications: Atorvastatin Calcium [Lipitor] 40 mg PO HS 03/18/19 [History] Dapagliflozin Propanediol [Farxiga] 10 mg PO DAILY 03/18/19 [History] Dulaglutide [Trulicity] 1.5 mg SQ WEEKLY 03/18/19 [History] Insulin Degludec [Tresiba Flextouch U-200] 40 units SQ DAILY 03/18/19 [History] Hx Tetanus, Diphtheria Vaccination/Date Given: Yes Hx Influenza Vaccination/Date Given: Yes Hx Pneumococcal Vaccination/Date Given: Yes Immunizations Up to Date: Yes Travel Risk - International Travel Have you traveled outside of the country in past 3 weeks: No - Coronavirus Screening Are you exhibiting any of the following symptoms?: No Close contact with a COVID-19 positive Pt in past 14-21 Days: No - Vaccine Status Have you recieved a Covid-19 vaccination: Yes 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: [employer] - Vaccination Dates Date of 2cond Vaccination (if applicable): 2020 - Review of Systems Constitutional: No Symptoms Eyes: No Symptoms Ears, Nose, & Throat: No Symptoms Respiratory: No Symptoms Cardiac: Chest Pain Abdominal/Gastrointestinal: No Symptoms Genitourinary Symptoms: No Symptoms Musculoskeletal: Fall, Injury, Joint Redness, Joint Pain, Joint Swelling Skin: No Symptoms Neurological: No Symptoms Endocrine: No Symptoms Hematologic/Lymphatic: No Symptoms - Past Medical History Pertinent Past Medical History: Yes Neurological History: Stroke ENT History: No Pertinent History Cardiac History: High Cholesterol, Hypertension Respiratory History: Other Endocrine Medical History: Diabetes Type II Musculoskeletal History: Fractures GI Medical History: GERD, Gallbladder Disease History: No Pertinent History Psycho-Social History: No Pertinent History Female Reproductive Disorders: No Pertinent History Other Medical History: PMHX: COVID LAST YEAR. IS FULLY VACCINATED. 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 HX OF CVA WITH PATIENT REPORTING ONLY RESIDUAL IS MILD WEAKNESS RIGHT HAND. HX FX LEFT WRIST, GANGLIA REMOVAL LEFT WRIST, CHOLECYSTECTOMY - Past Surgical History Past Surgical History: Yes Neuro Surgical History: No Pertinent History Cardiac: No Pertinent History Respiratory: No Pertinent History Gastrointestinal: Cholecystectomy Genitourinary: No Pertinent History Musculoskeletal: No Pertinent History Female Surgical History: No Pertinent History Other Surgical History: colonoscopy w/ polyps removed - Social History Smoking Status: Former smoker How long have you smoked: 11 years Exposure to second hand smoke: No Alcohol Use: None Drug Use: none Patient Lives Alone: Yes Significant Family History: no pertinent family hx - Nursing Vital Signs Nursing Vital Signs: Initial Vital Signs Temperature 98.3 F 08/04/22 14:41 Pulse Rate 72 08/04/22 14:41 Respiratory Rate 18 08/04/22 14:41 Blood Pressure 172/65 08/04/22 14:41 O2 Sat by Pulse Oximetry 100 08/04/22 14:41 Pain Scale Pain Intensity 5 - Franklin Coma Score Best Eye Response (Adriane): (4) open spontaneously Best Verbal Response (Adriane): (5) oriented Best Motor Response (Franklin): (6) obeys commands Franklin Total: 15 - Physical Exam General Appearance: no apparent distress, alert Head Injury: no evidence of injury, No Acosta's Sign, No contusions, No raccoon eyes, No swelling, No tenderness Eye Exam: PERRL/EOMI, eyes nml inspection ENT Exam: airway nml, nml ext.inspection, No evidence of ENT injury, No dental injury Respiratory/Chest Exam: chest tenderness (Minimal right anterior chest tender ness. 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 X-rays right knee, chest and rib series negative reviewed by me for any acute trauma related findings. Official report is pending. Recommended Tylenol, using cane/walker for ambulation to avoid a fall. Intermittent ice application and outpatient follow-up. Discussed signs symptoms of worsening needing return to ER which she seems understanding. Counseled pt/family regarding: diagnosis, need for follow-up, rad results - Departure Departure Disposition: Home Clinical Impression: Fall with injury, Contusion of knee, right, Chest wall muscle strain Condition: Stable Critical Care Time: No Referrals: SUSIE CARTER, [employer] [Primary Care Provider] - Follow up/PCP as directed (In 2 days for reevaluation) Instructions: Contusion (DC), Preventing Falls in Older Adults Additional Instructions: Take Tylenol as needed for pain. Intermittent ice application. Use cane/walker for ambulation to avoid a fall. Follow-up with primary care for reevaluation. Return to ER for any worsening.
[2022-08-04 17:34] VITALS: PULSE 66
--- NOTE | 2022-08-04 18:02 | XRAY ---
Indication: Pain following fall. Comparison: None 2 view right ribs demonstrates osteopenia, mild acromioclavicular degenerative changes, mild multilevel degenerative spondylosis, a few right lung calcified granulomas, and cholecystectomy clips. No other bony, articular, or soft tissue abnormalities.
--- NOTE | 2022-08-04 18:04 | XRAY ---
Indication: Pain following fall. Comparison: March 18, 2019 Portable chest again demonstrates normal heart and lungs with a few incidental tiny calcified granulomas. Bony thorax intact with mild osteopenia and degenerative changes. No new/acute abnormalities.
--- NOTE | 2022-08-04 18:05 | XRAY ---
Indication: Pain following fall. Comparison: None 3 view right knee demonstrates osteopenia and mild scattered vascular calcifications. No other bony, articular, or soft tissue abnormalities.
[2022-08-04 19:37] VITALS: O2SAT 100
== END 2022-08-04 17:34 | disposition home or self-care (01) ==
LOC: ED 14:40
DX: S80.01XA Contusion of right knee, initial encounter (principal); S29.011A Strain of muscle and tendon of front wall of thorax, initial encounter; W01.10XA Fall on same level from slipping, tripping and stumbling with subsequent striking against unspecified object, initial encounter; Y92.007 Garden or yard of unspecified non-institutional (private) residence as the place of occurrence of the external cause; E78.5 Hyperlipidemia, unspecified; I10 Essential (primary) hypertension; E11.9 Type 2 diabetes mellitus without complications; Z79.84 Long term (current) use of oral hypoglycemic drugs; Z79.85 Long-term (current) use of injectable non-insulin antidiabetic drugs; Z79.899 Other long term (current) drug therapy; Z86.16 Personal history of COVID-19
CPT/HCPCS: 71045; 71100; 73562; 99283

== ENCOUNTER 2023-02-05 17:30 | Emergency (ER) | payer MEDICARE ==
--- NOTE | 2023-02-05 17:33 | ERPHSYRPT ---
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 Primarily its been in the evenings when she feels the w eakness. Today was more significant. Patient arrives to the emergency department mildly confused with a blood sugar of 284. She has brought into the emergency department by the ambulance service to offered us independent history. Patient has a history of hyperlipidemia, CVA in the past, hypertension and gastroesophageal reflux disease. She denies shortness of breath. She denies chest pain. She denies abdominal pain. Timing/Duration: week(s) (1), intermittent, worse Associated Symptoms: weakness, No nausea, No vomiting, No abdominal pain, No shortness of breath, No chest pain, No fever Allergies/Adverse Reactions: metformin Allergy (Verified 02/05/23 17:55) Penicillins Allergy (Verified 02/05/23 17:55) Tightness of Throat Sulfa (Sulfonamide Antibiotics) Allergy (Verified 02/05/23 17:55) Nausea Home Medications: Atorvastatin Calcium [Lipitor] 40 mg PO HS 03/18/19 [History] Dapagliflozin Propanediol [Farxiga] 10 mg PO DAILY 03/18/19 [History] Dulaglutide [Trulicity] 1.5 mg SQ WEEKLY 03/18/19 [History] Insulin Degludec [Tresiba Flextouch U-200] 25 units SQ DAILY 03/18/19 [History] Insulin Aspart [Novolog] 0 unit SQ TID 02/05/23 [History] Hx Tetanus, Diphtheria Vaccination/Date Given: Yes Hx Influenza Vaccination/Date Given: Yes Hx Pneumococcal Vaccination/Date Given: Yes Travel Risk - International Travel Have you traveled outside of the country in past 3 weeks: No - Coronavirus Screening Are you exhibiting any of the following symptoms?: No Close contact with a COVID-19 positive Pt in past 14-21 Days: No - Vaccine Status Have you recieved a Covid-19 vaccination: Yes 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: [employer] - Vaccination Dates Date of 2cond Vaccination (if applicable): 2020 - Review of Systems Constitutional: Weakness Eyes: No Symptoms Ears, Nose, & Throat: No Symptoms, Throat Swelling Cardiac: No Symptoms Abdominal/Gastrointestinal: No Symptoms Genitourinary Symptoms: No Symptoms Musculoskeletal: No Symptoms Skin: No Symptoms Neurological: No Symptoms Psychological: No Symptoms Endocrine: No Symptoms Hematologic/Lymphatic: No Symptoms Immunological/Allergic: No Symptoms All Other Systems: Reviewed and Negative - Past Medical History Pertinent Past Medical History: Yes Neurological History: Stroke ENT History: No Pertinent History Cardiac History: High Cholesterol, Hypertension Respiratory History: Other Endocrine Medical History: Diabetes Type II Musculoskeletal History: Fractures GI Medical History: GERD, Gallbladder Disease History: No Pertinent History Psycho-Social History: No Pertinent History Female Reproductive Disorders: No Pertinent History Other Medical History: PMHX: COVID LAST YEAR. IS FULLY VACCINATED. 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 HX OF CVA WITH PATIENT REPORTING ONLY RESIDUAL IS MILD WEAKNESS RIGHT HAND. HX FX LEFT WRIST, GANGLIA REMOVAL LEFT WRIST, CHOLECYSTECTOMY - Past Surgical History Past Surgical History: Yes Neuro Surgical History: No Pertinent History Cardiac: No Pertinent History Respiratory: No Pertinent History Gastrointestinal: Cholecystectomy Genitourinary: No Pertinent History Musculoskeletal: No Pertinent History Female Surgical History: No Pertinent History Other Surgical History: colonoscopy w/ polyps removed - Social History Smoking Status: Former smoker How long have you smoked: 11 years Exposure to second hand smoke: No Alcohol Use: None Drug Use: none Patient Lives Alone: Yes Significant Family History: no pertinent family hx - Nursing Vital Signs Nursing Vital Signs: Initial Vital Signs Temperature 98.6 F 02/05/23 17:34 Pulse Rate 81 02/05/23 17:34 Respiratory Rate 21 02/05/23 17:34 Blood Pressure 182/65 02/05/23 17:34 O2 Sat by Pulse Oximetry 98 02/05/23 17:34 Pain Scale Pain Intensity 0 - Physical Exam General Appearance: no apparent distress, alert, anxiety Eye Exam: PERRL/EOMI, eyes nml inspection Ears, Nose, Throat Exam: normal ENT inspection, moist mucous membranes Neck Exam: normal inspection, non-tender, supple, full range of motion Respiratory Exam: normal breath sounds, lungs clear, airway intact, No chest tenderness, No respiratory distress Cardiovascular Exam: regular rate/rhythm, normal heart sounds, normal peripheral pulses Gastrointestinal/Abdomen Exam: soft, normal bowel sounds, No tenderness Pelvic Exam: not done Rectal Exam: not done Back Exam: normal inspection, normal range of motion, No CVA tenderness, No v ertebral tenderness Extremity Exam: normal inspection, normal range of motion, pelvis stable Neurologic Exam: alert, oriented x 3, 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, 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, normal mood/affect, sensation nml Skin Exam: normal color, warm, dry Lymphatic Exam: No adenopathy SpO2 Interpretation: normal O2 Delivery: Room Air - Course Nursing assessment & vital signs reviewed: Yes EKG Interpreted by Me: RATE (83), Left [place] Deviation (Borderline), NORMAL INTERVALS, NORMAL QRS, NORMAL ST-T, Other (No acute ischemic changes on today's twelve-lead EKG.) Ordered Tests: Active Orders 24 hr Category Date Time Status IV Insertion STAT Care 02/05/23 17:53 Active cath [Cath for Specimen-Straight] STAT Care 02/05/23 17:40 Active HEAD WITHOUT CONTRAST [CT] Stat Exams 02/05/23 18:01 Taken AMYLASE Stat Lab 02/05/23 18:05 Completed BLOOD CULTURE Stat Lab 02/05/23 19:10 Received CBC W DIFF Stat Lab 02/05/23 18:05 Completed CMP Stat Lab 02/05/23 18:05 Completed CULTURE,URINE Stat Lab 02/05/23 17:40 Received LIPASE Stat Lab 02/05/23 18:05 Completed Lactic Acid Stat Lab 02/05/23 18:19 Completed MONO SCREEN Stat Lab 02/05/23 18:05 Completed TROPONIN Q4H Lab 02/05/23 18:05 Completed TROPONIN Q4H Lab 02/05/23 22:00 Ordered TROPONIN Q4H Lab 02/06/23 02:00 Ordered UA W/RFX UR CULTURE Stat Lab 02/05/23 17:40 Completed Medication Summary Generic Name Dose Route Start Last Admin Trade Name Freq PRN Reason Stop Dose Admin Sodium Chloride 500 mls @ 500 mls/hr 02/05/23 20:27 02/05/23 20:36 Sodium Chloride 0.9% 500 Ml IV 02/05/23 21:26 500 mls/hr .Q1H ONE Administration Discontinued Medications Generic Name Dose Route Start Last Admin Trade Name Freq PRN Reason Stop Dose Admin Sodium Chloride 1,000 mls @ 999 mls/hr 02/05/23 17:53 02/05/23 18:59 Sodium Chloride 0.9% 1000 Ml IV 02/05/23 18:53 Infused .Q1H1M STA Infusion Sodium Chloride Confirm 02/05/23 17:57 Sodium Chloride 0.9% 1000 Ml Administered 02/05/23 17:58 Dose 1,000 mls @ ud .ROUTE .STK-MED ONE Ceftriaxone Sodium/Dextrose 1 g in 50 mls @ 100 mls/hr 02/05/23 19:44 02/05/23 20:37 Rocephin 1 Gm-D5w 50 Ml Bag IV 02/05/23 20:13 Infused STAT STA Infusion Ceftriaxone Sodium/Dextrose Confirm 02/05/23 20:06 Rocephin 1 Gm-D5w 50 Ml Bag Administered 02/05/23 20:07 Dose 1 g in 50 mls @ ud IV .STK-MED ONE Sodium Chloride Confirm 02/05/23 20:36 Sodium Chloride 0.9% 500 Ml Administered 02/05/23 20:37 Dose 500 mls @ ud IV .STK-MED ONE Lab/Rad Data: Laboratory Result Diagrams 02/05/23 18:05 02/05/23 18:05 Laboratory Results 02/05/23 02/05/23 02/05/23 Range/Units 18:19 18:05 18:05 WBC (4.0-10.5) x10^3/uL RBC (4.1-5.4) x10^6/uL Hgb (12.0-16.0) g/dL Hct (35-47) % MCV (78-100) fL MCH (26-32) pg MCHC (32-36) g/dL RDW (11.5-14.0) % Plt Count (150-450) x10^3/uL MPV (7.5-11.0) fL Gran % (36.0-66.0) % Immature Gran % (Auto) (0.00-0.4) % Nucleat RBC Rel Count (0.00-0.1) % Eos # (Auto) (0-0.5) x10^3/uL Immature Gran # (Auto) (0.00-0.03) x10^3u/L Absolute Lymphs (auto) (1.0-4.6) x10^3/uL Absolute Monos (auto) (0.0-1.3) x10^3/uL Absolute Nucleated RBC (0.00-0.01) x10^3u/L Lymphocytes % (24.0-44.0) % Monocytes % (0.0-12.0) % Eosinophils % (0.00-5.0) % Basophils % (0.0-0.4) % Absolute Granulocytes (1.4-6.9) x10^3/uL Basophils # (0-0.4) x10^3/uL Sodium (137-145) mmol/L Potassium (3.5-5.1) mmol/L Chloride (98-107) mmol/L Carbon Dioxide (22-30) mmol/L Anion Gap (5-15) MEQ/L BUN (7-17) mg/dL Creatinine (0.52-1.04) mg/dL Estimated GFR ML/MIN Glucose (74-106) mg/dL Lactic Acid 1.7 (0.4-2.0) Calcium (8.4-10.2) mg/dL Total Bilirubin (0.2-1.3) mg/dL AST (14-36) U/L ALT (0-35) U/L Alkaline Phosphatase (38-126) U/L Troponin I (0.000-0.034) ng/mL Serum Total Protein (6.3-8.2) g/dL Albumin (3.5-5.0) g/dL Amylase (30-110) U/L Lipase (23-300) U/L Urine Color (Yellow) Urine Appearance (Clear) Urine pH (4.6-8.0) Ur Specific Ewen (1.005-1.030) Urine Protein (Negative) Urine Glucose (UA) (Negative) mg/dL Urine Ketones (Negative) Urine Blood (Negative) Urine Nitrite (Negative) Urine Bilirubin (Negative) Urine Urobilinogen (0.2) mg/dL Ur Leukocyte Esterase (Negative) U Hyaline Cast (Auto) (0-2) /LPF Urine Microscopic RBC (0-5) /HPF Urine Microscopic WBC (0-5) /HPF Ur Epithelial Cells (None Seen) /HPF Urine Bacteria (None Seen) /HPF Urine Culture Reflexed (NO) Monoscreen NEGATIVE (NEGATIVE) Influenza Type A Ag NEGATIVE (NEGATIVE) Influenza Type B Ag NEGATIVE (NEGATIVE) RSV (PCR) NEGATIVE (NEGATIVE) SARS-CoV-2 (PCR) NEGATIVE (NEGATIVE) Slides for Path Review 02/05/23 02/05/23 02/05/23 Range/Units 18:05 18:05 18:05 WBC 10.7 H (4.0-10.5) x10^3/uL RBC 4.47 (4.1-5.4) x10^6/uL Hgb 12.5 (12.0-16.0) g/dL Hct 39.8 (35-47) % MCV 89.0 (78-100) fL MCH 28.0 (26-32) pg MCHC 31.4 L (32-36) g/dL RDW 13.7 (11.5-14.0) % Plt Count 231 (150-450) x10^3/uL MPV 10.5 (7.5-11.0) fL Gran % 81.9 H (36.0-66.0) % Immature Gran % (Auto) 0.4 (0.00-0.4) % Nucleat RBC Rel Count 0.0 (0.00-0.1) % Eos # (Auto) 0.27 (0-0.5) x10^3/uL Immature Gran # (Auto) 0.04 H (0.00-0.03) x10^3u/L Absolute Lymphs (auto) 0.50 L (1.0-4.6) x10^3/uL Absolute Monos (auto) 1.09 (0.0-1.3) x10^3/uL Absolute Nucleated RBC 0.00 (0.00-0.01) x10^3u/L Lymphocytes % 4.7 L (24.0-44.0) % Monocytes % 10.2 (0.0-12.0) % Eosinophils % 2.5 (0.00-5.0) % Basophils % 0.3 (0.0-0.4) % Absolute Granulocytes 8.72 H (1.4-6.9) x10^3/uL Basophils # 0.03 (0-0.4) x10^3/uL Sodium 136 L (137-145) mmol/L Potassium 5.0 (3.5-5.1) mmol/L Chloride 103 (98-107) mmol/L Carbon Dioxide 26 (22-30) mmol/L Anion Gap 12.3 (5-15) MEQ/L BUN 28 H (7-17) mg/dL Creatinine 1.56 H (0.52-1.04) mg/dL Estimated GFR 34.5 ML/MIN Glucose 224 H (74-106) mg/dL Lactic Acid (0.4-2.0) Calcium 8.7 (8.4-10.2) mg/dL Total Bilirubin 0.70 (0.2-1.3) mg/dL AST 38 H (14-36) U/L ALT 27 (0-35) U/L Alkaline Phosphatase 138 H (38-126) U/L Troponin I < 0.012 (0.000-0.034) ng/mL Serum Total Protein 7.4 (6.3-8.2) g/dL Albumin 3.9 (3.5-5.0) g/dL Amylase 64 (30-110) U/L Lipase 104 (23-300) U/L Urine Color (Yellow) Urine Appearance (Clear) Urine pH (4.6-8.0) Ur Specific Ewen (1.005-1.030) Urine Protein (Negative) Urine Glucose (UA) (Negative) mg/dL Urine Ketones (Negative) Urine Blood (Negative) Urine Nitrite (Negative) Urine Bilirubin (Negative) Urine Urobilinogen (0.2) mg/dL Ur Leukocyte Esterase (Negative) U Hyaline Cast (Auto) (0-2) /LPF Urine Microscopic RBC (0-5) /HPF Urine Microscopic WBC (0-5) /HPF Ur Epithelial Cells (None Seen) /HPF Urine Bacteria (None Seen) /HPF Urine Culture Reflexed (NO) Monoscreen (NEGATIVE) Influenza Type A Ag (NEGATIVE) Influenza Type B Ag (NEGATIVE) RSV (PCR) (NEGATIVE) SARS-CoV-2 (PCR) (NEGATIVE) Slides for Path Review YES 02/05/23 Range/Units 17:40 WBC (4.0-10.5) x10^3/uL RBC (4.1-5.4) x10^6/uL Hgb (12.0-16.0) g/dL Hct (35-47) % MCV (78-100) fL MCH (26-32) pg MCHC (32-36) g/dL RDW (11.5-14.0) % Plt Count (150-450) x10^3/uL MPV (7.5-11.0) fL Gran % (36.0-66.0) % Immature Gran % (Auto) (0.00-0.4) % Nucleat RBC Rel Count (0.00-0.1) % Eos # (Auto) (0-0.5) x10^3/uL Immature Gran # (Auto) (0.00-0.03) x10^3u/L Absolute Lymphs (auto) (1.0-4.6) x10^3/uL Absolute Monos (auto) (0.0-1.3) x10^3/uL Absolute Nucleated RBC (0.00-0.01) x10^3u/L Lymphocytes % (24.0-44.0) % Monocytes % (0.0-12.0) % Eosinophils % (0.00-5.0) % Basophils % (0.0-0.4) % Absolute Granulocytes (1.4-6.9) x10^3/uL Basophils # (0-0.4) x10^3/uL Sodium (137-145) mmol/L Potassium (3.5-5.1) mmol/L Chloride (98-107) mmol/L Carbon Dioxide (22-30) mmol/L Anion Gap (5-15) MEQ/L BUN (7-17) mg/dL Creatinine (0.52-1.04) mg/dL Estimated GFR ML/MIN Glucose (74-106) mg/dL Lactic Acid (0.4-2.0) Calcium (8.4-10.2) mg/dL Total Bilirubin (0.2-1.3) mg/dL AST (14-36) U/L ALT (0-35) U/L Alkaline Phosphatase (38-126) U/L Troponin I (0.000-0.034) ng/mL Serum Total Protein (6.3-8.2) g/dL Albumin (3.5-5.0) g/dL Amylase (30-110) U/L Lipase (23-300) U/L Urine Color Yellow (Yellow) Urine Appearance Clear (Clear) Urine pH 5.5 (4.6-8.0) Ur Specific Ewen 1.015 (1.005-1.030) Urine Protein Trace A (Negative) Urine Glucose (UA) >=1000 A (Negative) mg/dL Urine Ketones Negative (Negative) Urine Blood Trace (Negative) Urine Nitrite Negative (Negative) Urine Bilirubin Negative (Negative) Urine Urobilinogen 0.2 (0.2) mg/dL Ur Leukocyte Esterase Moderate A (Negative) U Hyaline Cast (Auto) NONE SEEN (0-2) /LPF Urine Microscopic RBC 0-2 (0-5) /HPF Urine Microscopic WBC 21-50 A (0-5) /HPF Ur Epithelial Cells Rare (None Seen) /HPF Urine Bacteria None Seen (None Seen) /HPF Urine Culture Reflexed YES (NO) Monoscreen (NEGATIVE) Influenza Type A Ag (NEGATIVE) Influenza Type B Ag (NEGATIVE) RSV (PCR) (NEGATIVE) SARS-CoV-2 (PCR) (NEGATIVE) Slides for Path Review - Progress Progress: improved, re-examined Progress Note: 02/05/23 20:27 This patient's medical issue is 1 of moderate complexity. The level complexity and the work-up performed was based on review of the patient's past medical history, review of the patient's medication list, review of the patient's drug allergy list, history of present illness, and physical findings on examination. The work-up includes CT scan of the head, urinalysis, twelve-lead EKG, troponin level, CBC, CMP and lactic acid level. I reviewed the work-up. There are no acute or emergent findings with the exception of a urinary tract infection. This diagnosis explains the weakness and elevated blood sugar level. We provided her with intravenous fluids, intravenous Rocephin. She will be di scharged home with instructions to monitor her blood sugar closely and continue her diabetic regimen as prescribed. We will send a prescription of Cipro to her pharmacy remotely. 02/05/23 21:07 CAT scan of the head without contrast was interpreted by the radiologist and I reviewed the impression. Compared to CAT scan of the head without contrast in March 2019 there is progressive atrophy and moderate microischemia. There is new, small, but old infarct of the left meneses radiata. There is no acute findings intracranially. I discussed these findings with the patient and the patient's family Counseled pt/family regarding: lab results, diagnosis, need for follow-up, rad results Medical Desision Making - Independent Historian Additional History obtained from: Family - Diagnostic Testing Diagnostic test were ordered, analyzed, and reviewed by me: Yes Radiological Interpretation: Reviewed by me, Teleradiologist Report - Risk of complications The pt has a mod risk of morbidity or mortality based on: Need for prescription drug management - Departure Departure Disposition: Home Clinical Impression: Weakness, Hyperglycemia, UTI (urinary tract infection) Condition: Stable Critical Care Time: No Referrals: SUSIE CARTER, IT COMPLIANCE ANALYST [Primary Care Provider] - Follow up/PCP as directed Additional Instructions: Drink plenty of fluids. Monitor your blood sugar closely. Take the antibiotics as prescribed. Take your other medication as prescribed. Call your primary care provider on 02/06/2023 to make arrangement for appointment in the next 3 to 5 days. Prescriptions: Ciprofloxacin [Cipro 500 MG] 500 mg PO BID #14 tablet
[2023-02-05] MEDS ORDERED: Sodium Chloride 0.9% 1000 ML 1,000 ML IV STA (17:53)
[2023-02-05] MEDS ORDERED: Sodium Chloride 0.9% 1000 ML 1,000 ML ONE (17:57)
[2023-02-05 18:35] LABS: Absolute Neutrophil Ct (ANC) 8.72 x10^3/uL (1.4-6.9); BASOPHIL % 0.3 % (0.0-0.4); Basophil (Absolute #) 0.03 x10^3/uL (0-0.4); Eosinophil % 2.5 % (0.00-5.0); Eosinophil (Absolute #) 0.27 x10^3/uL (0-0.5); Hematocrit 39.8 % (35-47); Hemoglobin 12.5 g/dL (12.0-16.0); IMMATURE GRAN # 0.04 x10^3u/L (0.00-0.03); IMMATURE GRAN % 0.4 % (0.00-0.4); Lymphocytes % 4.7 % (24.0-44.0); Mean Corpuscular Hgb Concent. 31.4 g/dL (32-36); Mean Platelet Volume 10.5 fL (7.5-11.0); Monocyte (Absolute #) 1.09 x10^3/uL (0.0-1.3); Monocytes % 10.2 % (0.0-12.0); Neutrophil % 81.9 % (36.0-66.0); Platelet Count 231 x10^3/uL (150-450); Red Blood Count 4.47 x10^6/uL (4.1-5.4); Red Cell Distribution Width 13.7 % (11.5-14.0); White Blood Count 10.7 x10^3/uL (4.0-10.5)
[2023-02-05 18:39] LABS: Appearance Clear (Clear); Bacteria None Seen /HPF (None Seen); Bilirubin Negative (Negative); Blood Trace (Negative); Epithelial Cells Rare /HPF (None Seen); Glucose, Urine >=1000 mg/dL (Negative); Hyaline Casts NONE SEEN /LPF (0-2); Ketones Negative (Negative); Leukocyte Esterase Moderate (Negative); Nitrite Negative (Negative); Ph 5.5 (4.6-8.0); Protein,Urine Dip Trace (Negative); RBC 0-2 /HPF (0-5); Specific Gravity 1.015 (1.005-1.030); Urobilinogen 0.2 mg/dL (0.2); WBC 21-50 /HPF (0-5)
[2023-02-05 18:44] LABS: ADD URINE CULTURE? YES (NO)
[2023-02-05 19:00] LABS: ALBUMIN 3.9 g/dL (3.5-5.0); ANION GAP 12.3 MEQ/L (5-15); BILIRUBIN,TOTAL 0.7 mg/dL (0.2-1.3); Calcium 8.7 mg/dL (8.4-10.2); Creatinine 1 1.56 mg/dL (0.52-1.04); EST GLOMERULAR FILTRATION RATE 34.5 ML/MIN; Total Protein 7.4 g/dL (6.3-8.2)
[2023-02-05 19:17] LABS: INFLUENZA A NEGATIVE (NEGATIVE); INFLUENZA B NEGATIVE (NEGATIVE); RESPIRATORY SYNCTIAL VIRUS NEGATIVE (NEGATIVE); SARS-CoV-2 Xpert Express NEGATIVE (NEGATIVE)
[2023-02-05] MEDS ORDERED: ROCEPHIN 1 Gm-D5w 50 ml Bag** 1 G/50 ML IVPB IV STA (19:44)
[2023-02-05] MEDS ORDERED: ROCEPHIN 1 Gm-D5w 50 ml Bag** 1 G/50 ML IVPB IV ONE (20:06)
[2023-02-05] MEDS ORDERED: Sodium Chloride 0.9% 500 ML 500 ML IV ONE ×2 (20:27→20:36)
[2023-02-05 20:43] LABS: Slide Review 1 YES
[2023-02-05 21:10] VITALS: BP 142/48; PULSE 70; O2SAT 96
--- NOTE | 2023-02-06 08:37 | XRAY ---
Indication: Fatigue and dizziness. Multiple contiguous axial images obtained through the head without contrast. Comparison: March 18, 2019 Progressive age-appropriate global atrophy with moderate periventricular degenerative micro-ischemia bilaterally. Periventricular white matter demonstrates new small foci of remote infarcts, largest adjacent to the left caudate head measuring 1.2 x 0.6 cm. No acute intracranial hemorrhage, abnormal extra-axial fluid collection, or mass effect. Fourth ventricle is midline without hydrocephalus. Bony calvarium intact. Visualized paranasal sinuses and mastoid air cells are clear. Impression: Nonacute senile brain with new small remote infarcts bilaterally.
== END 2023-02-05 21:17 | disposition home or self-care (01) ==
LOC: ED 17:30
DX: N39.0 Urinary tract infection, site not specified (principal); E11.65 Type 2 diabetes mellitus with hyperglycemia; R53.1 Weakness; R41.0 Disorientation, unspecified; E78.5 Hyperlipidemia, unspecified; I10 Essential (primary) hypertension; Z79.84 Long term (current) use of oral hypoglycemic drugs; Z79.85 Long-term (current) use of injectable non-insulin antidiabetic drugs; Z79.4 Long term (current) use of insulin; Z79.899 Other long term (current) drug therapy; Z86.16 Personal history of COVID-19; Z20.828 Contact with and (suspected) exposure to other viral communicable diseases
CPT/HCPCS: 0241U; 36000; 36415; 70450; 80053; 81001; 82150; 83605; 83690; 84484; 85025; 86308; 87040; 87086; 96365; 99284; P9612; J0696

== ENCOUNTER 2023-09-13 11:19 | Inpatient (IN) | payer MEDICARE ==
--- NOTE | 2023-09-13 11:43 | ERPHSYRPT ---
- History of Present Illness Time Seen by Provider: 09/13/23 11:30 Source: patient Exam Limitations: no limitations Patient Subjective Stated Complaint: stroke like symptoms Triage Nursing Assessment: patient reports waking up 09/12/23 and being unable to walk on her own. she said her frined came over and helped her out of bed and she used a cane to get to the [place] [facility] [place] having a cva in 2015 with right sided deficits. 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 Patient was last known well on the evening of 09/11/2023. Patient woke up on 09/12/2023 and could not walk. Ordinarily she could walk without a cane with chronic, persistent right-sided weakness post a CVA from several years ago. However, that morning, she has ever since had to use a cane to ambulate. Patient went to [facility] outpatient center on the morning of 09/12/2023. Per patient report, the outpatient clinic told her that if something were to change to come back for reassessment and reevaluation. She was puzzled because she stated this was a change for her. Patient went home and had her friend bring her to the emergency department this morning by private vehicle. Patient has history of hypertension, diabetes, hyperlipidemia, gastroesophageal reflux disease. Patient denies shortness of breath. She denies chest pain. She has no visual changes. She has no abdominal pain. She has had no nausea vomiting or diarrhea symptoms Timing/Duration: yesterday Severity: mild (Moderate) Deficits: decrease ability to stand, decrease ability to walk Baseline/Normal Cognition: alert oriented x 3 Current Cognition: alert oriented x 3 Baseline Gait: walks w/o assistance (She is using a cane since the morning of 09/13/2023) Associated Symptoms: weakness (Increasing weakness right side), No confusion, No vision changes, No chest pain, No headache Allergies/Adverse Reactions: metformin Allergy (Verified 09/13/23 11:34) Penicillins Allergy (Verified 09/13/23 11:34) Tightness of Throat Sulfa (Sulfonamide Antibiotics) Allergy (Verified 09/13/23 11:34) Nausea Home Medications: Insulin Degludec [Tresiba Flextouch U-200] 25 units SQ DAILY 03/18/19 [History] Insulin Aspart [Novolog] 0 unit SQ TID 02/05/23 [History] Losartan Potassium 50 mg [Cozaar 50 MG] 50 mg PO DAILY 09/13/23 [History] hydroCHLOROthiazide [Hydrochlorothiazide] 12.5 mg PO DAILY 09/13/23 [History] Hx Tetanus, Diphtheria Vaccination/Date Given: Yes Hx Influenza Vaccination/Date Given: Yes Hx Pneumococcal Vaccination/Date Given: Yes Travel Risk - International Travel Have you traveled outside of the country in past 3 weeks: No - Coronavirus Screening Are you exhibiting any of the following symptoms?: No Close contact with a COVID-19 positive Pt in past 14-21 Days: No - Vaccine Status Have you recieved a Covid-19 vaccination: Yes Meat Slicer: Unknown - Vaccination Dates Dates if Unknown: unknown - Review of Systems Constitutional: Weakness (Increasing right-sided weakness) Eyes: No Symptoms Ears, Nose, & Throat: No Symptoms Respiratory: No Symptoms Cardiac: No Symptoms Abdominal/Gastrointestinal: No Symptoms Genitourinary Symptoms: No Symptoms Musculoskeletal: No Symptoms Skin: No Symptoms Neurological: Focal Weakness (Increasing right-sided weakness), Gait Changes Psychological: No Symptoms Endocrine: No Symptoms Hematologic/Lymphatic: No Symptoms Immunological/Allergic: No Symptoms All Other Systems: Reviewed and Negative - Past Medical History Pertinent Past Medical History: Yes Neurological History: Stroke ENT History: No Pertinent History Cardiac History: High Cholesterol, Hypertension Respiratory History: Other Endocrine Medical History: Diabetes Type II Musculoskeletal History: Fractures GI Medical History: GERD, Gallbladder Disease History: No Pertinent History Psycho-Social History: No Pertinent History Female Reproductive Disorders: No Pertinent History Other Medical History: PMHX: COVID LAST YEAR. IS FULLY VACCINATED. STATES WAS TOLD HER HEART SKIPS BEATS BUT DOESN'T SEE A OXYACETYLENE BURNER. HX OF CVA WITH PATIENT REPORTING ONLY RESIDUAL IS MILD WEAKNESS RIGHT HAND. HX FX LEFT WRIST, GANGLIA REMOVAL LEFT WRIST, CHOLECYSTECTOMY - Past Surgical History Past Surgical History: Yes Neuro Surgical History: No Pertinent History Cardiac: No Pertinent History Respiratory: No Pertinent History Gastrointestinal: Cholecystectomy Genitourinary: No Pertinent History Musculoskeletal: No Pertinent History Female Surgical History: No Pertinent History Other Surgical History: colonoscopy w/ polyps removed - Social History Smoking Status: Former smoker How long have you smoked: 11 years Exposure to second hand smoke: No Alcohol Use: None Drug Use: none Patient Lives Alone: Yes Significant Family History: no pertinent family hx - Nursing Vital Signs Nursing Vital Signs: Initial Vital Signs Temperature 97.5 F 09/13/23 11:24 Pulse Rate 68 09/13/23 11:24 Respiratory Rate 16 09/13/23 11:24 Blood Pressure 202/61 09/13/23 11:24 O2 Sat by Pulse Oximetry 92 L 09/13/23 11:24 Pain Scale Pain Intensity 0 - Adriane Coma Scale Best Eye Response (Adriane): (4) open spontaneously Best Verbal Response (Adriane): (5) oriented Best Motor Response (Jesup): (6) obeys commands Adriane Total: 15 - Physical Exam General Appearance: no apparent distress, alert, anxiety Eye Exam: bilateral eye: normal inspection, PERRL, EOMI Ears, Nose, Throat Exam: normal ENT inspection, moist mucous membranes Neck Exam: normal inspection, non-tender, supple, full range of motion Respiratory: normal breath sounds, lungs clear, airway intact, No chest tenderness, No respiratory distress Cardiovascular: regular rate/rhythm, normal heart sounds, normal peripheral pulses Gastrointestinal: soft, normal bowel sounds, No tenderness Pelvic Exam: not done Rectal Exam: not done Back Exam: normal inspection, normal range of motion, vertebral tenderness, No CVA tenderness Extremity Exam: normal inspection, normal range of motion, pelvis stable Mental Status: alert, 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 x 3, 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 Exam: normal hearing, normal speech, PERRL, tongue midline Motor/Sensory: weak motor strength RUE, weak motor strength RLE Skin Exam: normal color, warm, dry SpO2 Interpretation: borderline oxygenation SpO2: 92 O2 Delivery: Room Air - Course Nursing assessment & vital signs reviewed: Yes EKG Interpreted by Me: RATE (62), Sinus Rhythm (Borderline), Left [place] Deviation, NORMAL INTERVALS, NORMAL QRS, NORMAL ST-T, Other (No acute ischemic changes on today's twelve-lead EKG.) Ordered Tests: Active Orders 24 hr Category Date Time Status Stamping Press Operator STAT Care 09/13/23 11:41 Active EKG-ER Only STAT Care 09/13/23 11:39 Active IV Insertion STAT Care 09/13/23 11:39 Active NPO (ED) STAT Care 09/13/23 11:39 Active Consult Tele-Health [Tele-Health Consult] ROUTINE Cons 09/13/23 14:29 Active HEAD WITHOUT CONTRAST [CT] Stat Exams 09/13/23 11:40 Completed MRI BRAIN W/O CONTRAST [MRI] Stat Exams 09/13/23 14:29 Ordered CBC W DIFF Stat Lab 09/13/23 11:34 Completed CMP Stat Lab 09/13/23 11:34 Completed ETHYL ALCOHOL Stat Lab 09/13/23 11:34 Completed PROTIME WITH INR Stat Lab 09/13/23 11:34 Completed TROPONIN Q4H Lab 09/13/23 11:34 Completed TROPONIN Q4H Lab 09/13/23 15:45 Ordered TROPONIN Q4H Lab 09/13/23 19:45 Ordered TROPONIN Q4H Lab 09/13/23 23:45 Ordered UA W/RFX UR CULTURE Stat Lab 09/13/23 13:54 Completed Medication Summary Discontinued Medications Generic Name Dose Route Start Last Admin Trade Name Freq PRN Reason Stop Dose Admin Aspirin 324 mg 09/13/23 14:23 09/13/23 14:32 Aspirin 81 Mg Tab.Chew PO 09/13/23 14:24 324 mg STAT ONE Administration Aspirin Confirm 09/13/23 14:29 Aspirin 81 Mg Tab.Chew Administered 09/13/23 14:30 Dose 324 mg .ROUTE .STK-MED ONE Clopidogrel Bisulfate 75 mg 09/13/23 14:23 09/13/23 14:31 Clopidogrel Bisulfate 75 Mg Tablet PO 09/13/23 14:24 75 mg STAT ONE Administration Clopidogrel Bisulfate Confirm 09/13/23 14:29 Clopidogrel Bisulfate 75 Mg Tablet Administered 09/13/23 14:30 Dose 75 mg .ROUTE .STK-MED ONE Lab/Rad Data: Laboratory Result Diagrams 09/13/23 11:34 09/13/23 11:34 Laboratory Results 09/13/23 09/13/23 09/13/23 Range/Units 13:54 11:34 11:34 WBC (4.0-10.5) x10^3/uL RBC (4.1-5.4) x10^6/uL Hgb (12.0-16.0) g/dL Hct (35-47) % MCV (78-100) fL MCH (26-32) pg MCHC (32-36) g/dL RDW (11.5-14.0) % Plt Count (150-450) x10^3/uL MPV (7.5-11.0) fL Gran % (36.0-66.0) % Immature Gran % (Auto) (0.00-0.4) % Nucleat RBC Rel Count (0.00-0.1) % Eos # (Auto) (0-0.5) x10^3/uL Immature Gran # (Auto) (0.00-0.03) x10^3u/L Absolute Lymphs (auto) (1.0-4.6) x10^3/uL Absolute Monos (auto) (0.0-1.3) x10^3/uL Absolute Nucleated RBC (0.00-0.01) x10^3u/L Lymphocytes % (24.0-44.0) % Monocytes % (0.0-12.0) % Eosinophils % (0.00-5.0) % Basophils % (0.0-0.4) % Absolute Granulocytes (1.4-6.9) x10^3/uL Basophils # (0-0.4) x10^3/uL PT 10.7 (9.4-12.5) SECONDS INR 0.98 (0.8-3.0) Sodium (137-145) mmol/L Potassium (3.5-5.1) mmol/L Chloride (98-107) mmol/L Carbon Dioxide (22-30) mmol/L Anion Gap (5-15) MEQ/L BUN (7-17) mg/dL Creatinine (0.52-1.04) mg/dL Estimated GFR ML/MIN Glucose (74-106) mg/dL Calcium (8.4-10.2) mg/dL Total Bilirubin (0.2-1.3) mg/dL AST (14-36) U/L ALT (0-35) U/L Alkaline Phosphatase (38-126) U/L Troponin I < 0.012 (0.000-0.034) ng/mL Serum Total Protein (6.3-8.2) g/dL Albumin (3.5-5.0) g/dL Urine Color Yellow (Yellow) Urine Appearance Clear (Clear) Urine pH 5.0 (4.6-8.0) Ur Specific [place] 1.025 (1.005-1.030) Urine Protein 100 A (Negative) Urine Glucose (UA) 500 A (Negative) mg/dL Urine Ketones Negative (Negative) Urine Blood Negative (Negative) Urine Nitrite Negative (Negative) Urine Bilirubin Negative (Negative) Urine Urobilinogen 0.2 (0.2) mg/dL Ur Leukocyte Esterase Negative (Negative) U Hyaline Cast (Auto) 3-5 A (0-2) /LPF Urine Microscopic RBC 0-2 (0-5) /HPF Urine Microscopic WBC 6-10 A (0-5) /HPF Ur Epithelial Cells Few (None Seen) /HPF Urine Bacteria None Seen (None Seen) /HPF Urine Culture Reflexed NO (NO) Ethyl Alcohol (0-10) mg/dL 09/13/23 09/13/23 Range/Units 11:34 11:34 WBC 10.5 (4.0-10.5) x10^3/uL RBC 4.45 (4.1-5.4) x10^6/uL Hgb 12.3 (12.0-16.0) g/dL Hct 39.9 (35-47) % MCV 89.7 (78-100) fL MCH 27.6 (26-32) pg MCHC 30.8 L (32-36) g/dL RDW 13.1 (11.5-14.0) % Plt Count 292 (150-450) x10^3/uL MPV 10.5 (7.5-11.0) fL Gran % 74.0 H (36.0-66.0) % Immature Gran % (Auto) 0.8 H (0.00-0.4) % Nucleat RBC Rel Count 0.0 (0.00-0.1) % Eos # (Auto) 0.14 (0-0.5) x10^3/uL Immature Gran # (Auto) 0.08 H (0.00-0.03) x10^3u/L Absolute Lymphs (auto) 1.55 (1.0-4.6) x10^3/uL Absolute Monos (auto) 0.92 (0.0-1.3) x10^3/uL Absolute Nucleated RBC 0.00 (0.00-0.01) x10^3u/L Lymphocytes % 14.8 L (24.0-44.0) % Monocytes % 8.8 (0.0-12.0) % Eosinophils % 1.3 (0.00-5.0) % Basophils % 0.3 (0.0-0.4) % Absolute Granulocytes 7.73 H (1.4-6.9) x10^3/uL Basophils # 0.03 (0-0.4) x10^3/uL PT (9.4-12.5) SECONDS INR (0.8-3.0) Sodium 137 (137-145) mmol/L Potassium 4.5 (3.5-5.1) mmol/L Chloride 105 (98-107) mmol/L Carbon Dioxide 24 (22-30) mmol/L Anion Gap 11.5 (5-15) MEQ/L BUN 35 H (7-17) mg/dL Creatinine 1.16 H (0.52-1.04) mg/dL Estimated GFR 49.5 ML/MIN Glucose 262 H (74-106) mg/dL Calcium 9.6 (8.4-10.2) mg/dL Total Bilirubin 0.80 (0.2-1.3) mg/dL AST 54 H (14-36) U/L ALT 38 H (0-35) U/L Alkaline Phosphatase 154 H (38-126) U/L Troponin I (0.000-0.034) ng/mL Serum Total Protein 8.2 (6.3-8.2) g/dL Albumin 4.3 (3.5-5.0) g/dL Urine Color (Yellow) Urine Appearance (Clear) Urine pH (4.6-8.0) Ur Specific [place] (1.005-1.030) Urine Protein (Negative) Urine Glucose (UA) (Negative) mg/dL Urine Ketones (Negative) Urine Blood (Negative) Urine Nitrite (Negative) Urine Bilirubin (Negative) Urine Urobilinogen (0.2) mg/dL Ur Leukocyte Esterase (Negative) U Hyaline Cast (Auto) (0-2) /LPF Urine Microscopic RBC (0-5) /HPF Urine Microscopic WBC (0-5) /HPF Ur Epithelial Cells (None Seen) /HPF Urine Bacteria (None Seen) /HPF Urine Culture Reflexed (NO) Ethyl Alcohol < 10 (0-10) mg/dL - Progress Progress: improved, re-examined Progress Note: 09/13/23 13:29 This patient's medical issue is 1 of moderate to high complexity. Level complex in the workup performed based on review the patient's past medical history, review the patient's medication list, review of patient drug allergy list, history present illness and physical findings on examination. The workup in this patient includes placement of intravenous line, urinalysis, twelve-lead EKG, troponin level, CT scan of the head, CBC, CMP. 09/13/23 13:31 CT scan of the head without contrast was interpreted by the radiologist and I reviewed the impression. The impression says no intracranial hemorrhage. There is age-appropriate global atrophy. There is moderate periventricular degenerative micro ischemia bilaterally. This is a nonacute senile brain with remote bilateral infarcts of the basal ganglia and a small remote infarct adjacent to left caudate head 09/13/23 14:24 I interpreted the patient's laboratory data results. Patient does not have any acute, emergent findings on her workup at this time. I spoke with Dr. Contreras, the teleneurologist. She interviewed the patient and her recommendations are to admit this patient for stroke rule out including MRI of the brain, full baby aspirin this time and 75 mg Plavix daily, CT angiography of head and neck, and echocardiogram. We will contact the telehospitalist on-call for admission Discussed with : Cora Counseled pt/family regarding: lab results, diagnosis, rad results Medical Desision Making - Diagnostic Testing Diagnostic test were ordered, analyzed, and reviewed by me: Yes Radiological Interpretation: Reviewed by me, Teleradiologist Report - Risk of complications The pt has a high risk of morbidity or mortality based on: Decision regarding hospitilization or escalation of hosp level of care - Departure Departure Disposition: In-patient Admission Clinical Impression: CVA (cerebral vascular accident), Hypertensive urgency Condition: Fair Critical Care Time: No Referrals: SUSIE CARTER NP [NON-STAFF PHY W/O PRIVILEGES] - Follow up/PCP as directed
[2023-09-13 12:00] LABS: Absolute Neutrophil Ct (ANC) 7.73 x10^3/uL (1.4-6.9); BASOPHIL % 0.3 % (0.0-0.4); Basophil (Absolute #) 0.03 x10^3/uL (0-0.4); Eosinophil % 1.3 % (0.00-5.0); Eosinophil (Absolute #) 0.14 x10^3/uL (0-0.5); Hematocrit 39.9 % (35-47); Hemoglobin 12.3 g/dL (12.0-16.0); IMMATURE GRAN # 0.08 x10^3u/L (0.00-0.03); IMMATURE GRAN % 0.8 % (0.00-0.4); Lymphocyte (Absolute #) 1.55 x10^3/uL (1.0-4.6); Lymphocytes % 14.8 % (24.0-44.0); Mean Cell Volume 89.7 fL (78-100); Mean Corpuscular Hemoglobin 27.6 pg (26-32); Mean Corpuscular Hgb Concent. 30.8 g/dL (32-36); Mean Platelet Volume 10.5 fL (7.5-11.0); Monocyte (Absolute #) 0.92 x10^3/uL (0.0-1.3); Monocytes % 8.8 % (0.0-12.0); Platelet Count 292 x10^3/uL (150-450); Red Blood Count 4.45 x10^6/uL (4.1-5.4); Red Cell Distribution Width 13.1 % (11.5-14.0); White Blood Count 10.5 x10^3/uL (4.0-10.5)
[2023-09-13 12:14] LABS: ALBUMIN 4.3 g/dL (3.5-5.0); ALKALINE PHOSPHATASE 154 U/L (38-126); ANION GAP 11.5 MEQ/L (5-15); BLOOD UREA NITROGEN 35 mg/dL (7-17); CHLORIDE 105 mmol/L (98-107); Calcium 9.6 mg/dL (8.4-10.2); Carbon Dioxide 24 mmol/L (22-30); Creatinine 1 1.16 mg/dL (0.52-1.04); EST GLOMERULAR FILTRATION RATE 49.5 ML/MIN; ETHYL ALCOHOL < 10 mg/dL (0-10); Glucose 262 mg/dL (74-106); SGOT/AST 54 U/L (14-36); SGPT/ALT 38 U/L (0-35); SODIUM 137 mmol/L (137-145); Total Protein 8.2 g/dL (6.3-8.2)
--- NOTE | 2023-09-13 12:19 | XRAY ---
Indication: Right-sided weakness. History of left stroke. Multiple contiguous axial images obtained through the head without contrast. Comparison: February 05, 2023 Again age-appropriate global atrophy, moderate periventricular degenerative micro-ischemia bilaterally, remote basal ganglia lacunar infarcts bilaterally, and small remote infarct adjacent left caudate head. No acute intracranial hemorrhage, abnormal extra-axial fluid collection, or mass effect. Fourth ventricle is midline without hydrocephalus. Bony calvarium intact. Visualized paranasal sinuses and mastoid air cells are clear. Impression: Continued nonacute senile brain with remote bilateral infarcts as detailed.
[2023-09-13 12:22] LABS: Potassium 4.5 mmol/L (3.5-5.1)
[2023-09-13 13:13] LABS: INR 0.98 (0.8-3.0); PROTIME 10.7 SECONDS (9.4-12.5)
[2023-09-13] MEDS ORDERED: BABY ASPIRIN 81 MG CHEW PO ONE (14:23)
[2023-09-13] MEDS ORDERED: PLAVIX Tablet PO ONE (14:23)
[2023-09-13] MEDS ORDERED: BABY ASPIRIN 81 MG CHEW ONE (14:29)
[2023-09-13] MEDS ORDERED: PLAVIX Tablet ONE (14:29)
[2023-09-13 14:35] LABS: Appearance Clear (Clear); Bacteria None Seen /HPF (None Seen); Bilirubin Negative (Negative); Blood Negative (Negative); Epithelial Cells Few /HPF (None Seen); Glucose, Urine 500 mg/dL (Negative); Ketones Negative (Negative); Leukocyte Esterase Negative (Negative); Nitrite Negative (Negative); Protein,Urine Dip 100 (Negative); RBC 0-2 /HPF (0-5); Specific Gravity 1.025 (1.005-1.030); Urobilinogen 0.2 mg/dL (0.2)
[2023-09-13 14:42] LABS: ADD URINE CULTURE? NO (NO)
--- NOTE | 2023-09-13 15:41 | XRAY ---
Indication: Right-sided weakness. CVA. Sagittal, coronal, and axial MRI brain performed without contrast using T1, T2, FLAIR, diffusion, and ADC sequences. Comparison: None Age-appropriate global atrophy and mild periventricular degenerative micro-ischemia signal bilaterally. Diffusion images demonstrates 1.3 x 0.7 cm focus restricted signal right centrum semiovale near the vertex favoring acute ischemia. Additional punctate acute ischemia signal seen contralateral left centrum semiovale and left posterior temporal lobe. No acute intracranial hemorrhage, abnormal extra-axial fluid collection, or mass effect. Fourth ventricle is midline without hydrocephalus. 7/8 cranial nerve bilaterally symmetric. Normal flow void signal within the major intracerebral circulation. Normal appearing craniocervical junction and sella turcica. Visualized paranasal sinuses are clear. Impression: 1. Small 1.3 x 0.7 cm focus acute ischemia right centrum semiovale. Additional punctate acute micro-ischemia left centrum semiovale and left posterior temporal lobe. No acute hemorrhage/mass effect. 2. Atrophy and degenerative micro-ischemia within normal limits for patient's age.
[2023-09-13] MEDS ORDERED: Zofran 4 MG/2 ML VIAL IV PRN (17:01)
[2023-09-13] MEDS ORDERED: TYLENOL 325 MG PO PRN ×2 (17:01→18:33)
--- NOTE | 2023-09-13 17:20 | PCM.HP ---
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 Patient was last known well on the evening of 09/11/2023. Patient woke up on 09/12/2023 and could not walk. Ordinarily she could walk without a cane with chronic, persistent right-sided weakness post a CVA from several years ago. However, that morning, she has ever since had to use a cane to ambulate. Patient went to [facility] outpatient [facility] on the morning of 09/12/2023. Per patient report, the outpatient clinic told her that if something were to change to come back for reassessment and reevaluation. She was puzzled because she stated this was a change for her. Patient went home and had her friend bring her to the emergency department this morning by private vehicle. Patient denies shortness of breath. She denies chest pain. She has no visual changes. She has no abdominal pain. She has had no nausea vomiting or diarrhea symptoms. Neurology was consulted in the ER and MRI of brain and echo advised. MRI Impression: Small 1.3 x 0.7 cm focus acute ischemia right centrum semiovale.Additional punctate acute micro-ischemia left centrum semiovale and left posterior temporal lobe. No acute hemorrhage/mass effect. 2. Atrophy and degenerative micro-ischemia within normal limits for patient's age. ER notifed neurology of findings for further recs. Plavix and ASA started. Will allow permissive HTN for 72 hours. - Review of Systems Constitutional: No Fever, No Chills Eyes: No Symptoms Ears, Nose, & Throat: No Symptoms Respiratory: No Cough, No Short Of Breath Cardiac: No Chest Pain, No Edema, No Syncope Abdominal/Gastrointestinal: No Abdominal Pain, No Nausea, No Vomiting, No Diarrhea Genitourinary Symptoms: No Dysuria Musculoskeletal: No Back Pain, No Neck Pain Skin: No Rash Neurological: Focal Weakness, Gait Changes, Sensory Changes, No Dizziness Psychological: No Symptoms Endocrine: No Symptoms Hematologic/Lymphatic: No Symptoms Immunological/Allergic: No Symptoms Medications & Allergies Home Medications: Home Medication List Insulin Degludec [Tresiba Flextouch U-200] 25 units SQ DAILY 03/18/19 [History Confirmed 09/13/23] Insulin Aspart [Novolog] 0 unit SQ TID 02/05/23 [History Confirmed 09/13/23] Benzonatate 100 mg PO TID 09/13/23 [History Confirmed 09/13/23] Losartan Potassium 50 mg [Cozaar 50 MG] 50 mg PO DAILY 09/13/23 [History Confirmed 09/13/23] Allergies/Adverse Reactions: Allergies Allergy/AdvReac Type Severity Reaction Status Date / Time metformin Allergy Verified 09/13/23 11:34 Penicillins Allergy Tightness Verified 09/13/23 11:34 of Throat Sulfa (Sulfonamide Allergy Nausea Verified 09/13/23 11:34 Antibiotics) - Past Medical History Past Medical History: Yes Neurological History: Stroke ENT History: No Pertinent History Cardiac History: High Cholesterol, Hypertension Respiratory History: Other Endocrine Medical History: Diabetes Type II Musculoskelatal History: Fractures GI Medical History: GERD, Gallbladder Disease History: No Pertinent History Pyscho-Social History: No Pertinent History Reproductive Disorders: No Pertinent History Comment: PMHX: COVID LAST YEAR. IS FULLY VACCINATED. 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 HX OF CVA WITH PATIENT REPORTING ONLY RESIDUAL IS MILD WEAKNESS RIGHT HAND. HX FX LEFT WRIST, GANGLIA REMOVAL LEFT WRIST, CHOLECYSTECTOMY - Past Surgical History Past Surgical History: Yes Neuro Surgical History: No Pertinent History Cardiac History: No Pertinent History Respiratory Surgery: No Pertinent History GI Surgical History: Cholecystectomy Genitourinary Surgical Hx: No Pertinent History Musculskeletal Surgical Hx: No Pertinent History Female Surgical History: No Pertinent History Other Surgical History: colonoscopy w/ polyps removed - Social History Smoking Status: Former smoker How long have you smoked: 11 years Exposure to second hand smoke: No Alcohol: Rarely Drug Use: none Significant Family History: no pertinent family hx - Physical Exam Vital Signs: Vital Signs - 24 hr Temp Pulse Resp BP BP Pulse Ox 09/13/23 16:10 60 170/64 100 09/13/23 16:00 169/57 97 09/13/23 15:51 64 171/61 95 09/13/23 15:40 189/69 09/13/23 15:31 201/68 98 09/13/23 14:48 92 L 01/05/24 14:41 192/80 09/13/23 14:31 66 17 210/74 09/13/23 14:21 64 17 198/58 100 09/13/23 14:11 64 17 99 09/13/23 14:01 62 18 163/48 98 09/13/23 13:40 62 21 179/62 99 09/13/23 13:30 64 16 169/63 99 09/13/23 13:20 65 17 150/58 97 09/13/23 13:10 66 15 157/60 91 L 09/13/23 13:00 65 17 170/65 96 09/13/23 12:50 65 17 166/60 96 09/13/23 12:40 65 14 162/66 94 L 09/13/23 12:30 65 15 171/65 82 L 09/13/23 12:21 65 19 168/56 91 L 09/13/23 12:10 65 18 181/54 98 09/13/23 12:03 65 17 99 09/13/23 11:50 191/58 09/13/23 11:41 65 17 205/59 09/13/23 11:30 65 12 202/61 09/13/23 11:24 97.5 F 68 16 202/61 92 L General Appearance: no apparent distress, alert Neurologic Exam: alert, oriented x 3, cooperative, normal mood/affect, sensation nml, other (weakness of right side and decreased sensation), No motor deficits Eye Exam: PERRL/EOMI, eyes nml inspection Ears, Nose, Throat Exam: normal ENT inspection, TMs normal, pharynx normal, moist mucous membranes Neck Exam: normal inspection, non-tender, supple, full range of motion Respiratory Exam: normal breath sounds, lungs clear, No respiratory distress Cardiovascular Exam: regular rate/rhythm, normal heart sounds, normal peripheral pulses Gastrointestinal/Abdomen Exam: soft, normal bowel sounds, No tenderness, No mass Back Exam: normal inspection, normal range of motion, No CVA tenderness, No vertebral tenderness Extremity Exam: normal inspection, normal range of motion, pelvis stable, limite d range of motion (right sidede weakness) Skin Exam: normal color, warm, dry, No rash Lymphatic Exam: No adenopathy Results - Labs Lab/Micro Results: Lab Results-Last 24 Hours 0109/13/23 09/13/23 Range/Units 11:34 11:34 11:34 WBC 10.5 (4.0-10.5) x10^3/uL RBC 4.45 (4.1-5.4) x10^6/uL Hgb 12.3 (12.0-16.0) g/dL Hct 39.9 (35-47) % MCV 89.7 (78-100) fL MCH 27.6 (26-32) pg MCHC 30.8 L (32-36) g/dL RDW 13.1 (11.5-14.0) % Plt Count 292 (150-450) x10^3/uL MPV 10.5 (7.5-11.0) fL Gran % 74.0 H (36.0-66.0) % Immature Gran % (Auto) 0.8 H (0.00-0.4) % Nucleat RBC Rel Count 0.0 (0.00-0.1) % Eos # (Auto) 0.14 (0-0.5) x10^3/uL Immature Gran # (Auto) 0.08 H (0.00-0.03) x10^3u/L Absolute Lymphs (auto) 1.55 (1.0-4.6) x10^3/uL Absolute Monos (auto) 0.92 (0.0-1.3) x10^3/uL Absolute Nucleated RBC 0.00 (0.00-0.01) x10^3u/L Lymphocytes % 14.8 L (24.0-44.0) % Monocytes % 8.8 (0.0-12.0) % Eosinophils % 1.3 (0.00-5.0) % Basophils % 0.3 (0.0-0.4) % Absolute Granulocytes 7.73 H (1.4-6.9) x10^3/uL Basophils # 0.03 (0-0.4) x10^3/uL PT 10.7 (9.4-12.5) SECONDS INR 0.98 (0.8-3.0) Sodium 137 (137-145) mmol/L Potassium 4.5 (3.5-5.1) mmol/L Chloride 105 (98-107) mmol/L Carbon Dioxide 24 (22-30) mmol/L Anion Gap 11.5 (5-15) MEQ/L BUN 35 H (7-17) mg/dL Creatinine 1.16 H (0.52-1.04) mg/dL Estimated GFR 49.5 ML/MIN Glucose 262 H (74-106) mg/dL Calcium 9.6 (8.4-10.2) mg/dL Total Bilirubin 0.80 (0.2-1.3) mg/dL AST 54 H (14-36) U/L ALT 38 H (0-35) U/L Alkaline Phosphatase 154 H (38-126) U/L Troponin I (0.000-0.034) ng/mL Serum Total Protein 8.2 (6.3-8.2) g/dL Albumin 4.3 (3.5-5.0) g/dL Urine Color (Yellow) Urine Appearance (Clear) Urine pH (4.6-8.0) Ur Specific [place] (1.005-1.030) Urine Protein (Negative) Urine Glucose (UA) (Negative) mg/dL Urine Ketones (Negative) Urine Blood (Negative) Urine Nitrite (Negative) Urine Bilirubin (Negative) Urine Urobilinogen (0.2) mg/dL Ur Leukocyte Esterase (Negative) U Hyaline Cast (Auto) (0-2) /LPF Urine Microscopic RBC (0-5) /HPF Urine Microscopic WBC (0-5) /HPF Ur Epithelial Cells (None Seen) /HPF Urine Bacteria (None Seen) /HPF Urine Culture Reflexed (NO) Ethyl Alcohol < 10 (0-10) mg/dL 09/13/23 09/13/23 09/13/23 Range/Units 11:34 13:54 15:40 WBC (4.0-10.5) x10^3/uL RBC (4.1-5.4) x10^6/uL Hgb (12.0-16.0) g/dL Hct (35-47) % MCV (78-100) fL MCH (26-32) pg MCHC (32-36) g/dL RDW (11.5-14.0) % Plt Count (150-450) x10^3/uL MPV (7.5-11.0) fL Gran % (36.0-66.0) % Immature Gran % (Auto) (0.00-0.4) % Nucleat RBC Rel Count (0.00-0.1) % Eos # (Auto) (0-0.5) x10^3/uL Immature Gran # (Auto) (0.00-0.03) x10^3u/L Absolute Lymphs (auto) (1.0-4.6) x10^3/uL Absolute Monos (auto) (0.0-1.3) x10^3/uL Absolute Nucleated RBC (0.00-0.01) x10^3u/L Lymphocytes % (24.0-44.0) % Monocytes % (0.0-12.0) % Eosinophils % (0.00-5.0) % Basophils % (0.0-0.4) % Absolute Granulocytes (1.4-6.9) x10^3/uL Basophils # (0-0.4) x10^3/uL PT (9.4-12.5) SECONDS INR (0.8-3.0) Sodium (137-145) mmol/L Potassium (3.5-5.1) mmol/L Chloride (98-107) mmol/L Carbon Dioxide (22-30) mmol/L Anion Gap (5-15) MEQ/L BUN (7-17) mg/dL Creatinine (0.52-1.04) mg/dL Estimated GFR ML/MIN Glucose (74-106) mg/dL Calcium (8.4-10.2) mg/dL Total Bilirubin (0.2-1.3) mg/dL AST (14-36) U/L ALT (0-35) U/L Alkaline Phosphatase (38-126) U/L Troponin I < 0.012 < 0.012 (0.000-0.034) ng/mL Serum Total Protein (6.3-8.2) g/dL Albumin (3.5-5.0) g/dL Urine Color Yellow (Yellow) Urine Appearance Clear (Clear) Urine pH 5.0 (4.6-8.0) Ur Specific [place] 1.025 (1.005-1.030) Urine Protein 100 A (Negative) Urine Glucose (UA) 500 A (Negative) mg/dL Urine Ketones Negative (Negative) Urine Blood Negative (Negative) Urine Nitrite Negative (Negative) Urine Bilirubin Negative (Negative) Urine Urobilinogen 0.2 (0.2) mg/dL Ur Leukocyte Esterase Negative (Negative) U Hyaline Cast (Auto) 3-5 A (0-2) /LPF Urine Microscopic RBC 0-2 (0-5) /HPF Urine Microscopic WBC 6-10 A (0-5) /HPF Ur Epithelial Cells Few (None Seen) /HPF Urine Bacteria None Seen (None Seen) /HPF Urine Culture Reflexed NO (NO) Ethyl Alcohol (0-10) mg/dL - Radiology Impressions Radiology Exams & Impressions: Radiology Procedures Category Date Time Status ECHO W/2D AND DOPPLER [US] Stat Exams 09/13/23 14:47 Taken HEAD WITHOUT CONTRAST [CT] Stat Exams 09/13/23 11:40 Completed MRI BRAIN W/O CONTRAST [MRI] Stat Exams 09/13/23 14:29 Completed - Other Procedures and Tests Respiratory Therapy 09/13/23 17:01 EKG REPEAT IN AM Assessment/Plan (1) CVA (cerebral vascular accident) Current Visit: Yes Status: Acute Assessment & Plan: - CT brain 09/13/23 Impression: Continued nonacute senile brain with remote bilateral infarcts as detailed. - Brain MRI 09/13/23 Impression: 1. Small 1.3 x 0.7 cm focus acute ischemia right centrum semiovale. Additional punctate acute micro-ischemia left centrum semiovale and left posterior temporal lobe. No acute hemorrhage/mass effect. 2. Atrophy and degenerative micro-ischemia within normal limits for patient's age. - increased right sided weakness. - Tele neurology consult in ER- ER MD made consult aware of + MRI results - carotid duplex- unable to have until Saturday - Echo - pending - Lipid panel in AM - PT/OT eval - bedside swallow screen - Neuro checks Q4 - EKG reviwed - recheck in AM - ASA and plavix started in ER- continue per tele neurology orders Code(s): I63.9 - CEREBRAL INFARCTION, UNSPECIFIED (2) HTN (hypertension) Current Visit: Yes Status: Acute Assessment & Plan: - allow permissive htn for 72 hr - Hold home BP meds Code(s): I10 - ESSENTIAL (PRIMARY) HYPERTENSION (3) Weakness Current Visit: Yes Status: Acute Assessment & Plan: - PT/OT - BR with BRP Code(s): R53.1 - WEAKNESS (4) Hyperlipidemia Current Visit: Yes Status: Acute Assessment & Plan: - start statin -lipid panel in AM Code(s): E78.5 - HYPERLIPIDEMIA, UNSPECIFIED (5) Acute on chronic kidney failure Current Visit: Yes Status: Acute Assessment & Plan: - Gentle hydration - IVF Code(s): N17.9 - ACUTE KIDNEY FAILURE, UNSPECIFIED; N18.9 - CHRONIC KIDNEY DISEASE, UNSPECIFIED
[2023-09-13] MEDS: Sodium Chloride 0.9% 1000 ML 1,000 ML IV SCH (19:26)
[2023-09-13] MEDS ORDERED: ZOCOR 20MG PO SCH (22:00)
[2023-09-13] MEDS ORDERED: Lantus Insulin SQ SCH (22:00)
[2023-09-14 06:10] LABS: Hematocrit 36.2 % (35-47); Hemoglobin 11.4 g/dL (12.0-16.0); Mean Cell Volume 88.1 fL (78-100); Mean Corpuscular Hemoglobin 27.7 pg (26-32); Mean Corpuscular Hgb Concent. 31.5 g/dL (32-36); Mean Platelet Volume 10.2 fL (7.5-11.0); Platelet Count 256 x10^3/uL (150-450); Red Blood Count 4.11 x10^6/uL (4.1-5.4); Red Cell Distribution Width 13.3 % (11.5-14.0); White Blood Count 8.2 x10^3/uL (4.0-10.5)
[2023-09-14 06:29] LABS: ALBUMIN 3.4 g/dL (3.5-5.0); BILIRUBIN,TOTAL 0.5 mg/dL (0.2-1.3); Calcium 9.1 mg/dL (8.4-10.2); Creatinine 1 0.93 mg/dL (0.52-1.04); EST GLOMERULAR FILTRATION RATE 64.5 ML/MIN; Potassium 4.5 mmol/L (3.5-5.1); Total Protein 6.7 g/dL (6.3-8.2)
[2023-09-14 06:35] LABS: Risk Ratio 4.2
[2023-09-14] MEDS ORDERED: HUMALOG SQ SCH ×3 (08:00→17:00)
[2023-09-14] MEDS ORDERED: ECOTRIN 81 MG PO SCH (10:00)
[2023-09-14] MEDS ORDERED: PLAVIX Tablet PO SCH (10:00)
[2023-09-14 12:30] VITALS: TEMP 97.8
--- NOTE | 2023-09-14 13:20 | PCM.NOTE ---
Date and Time: 09/14/23 1313 Subjective Assessment: 09/13/23 is a 72 year old female with a PMHX of stroke with right sided deficit, hypertension, diabetes, hyperlipidemia, gastroesophageal reflux disease.She states that her sightseeing guide recently changed her blood pressure medication (1 month ago). Patient was last known well on the evening of 09/11/2023. Patient woke up on 09/12/2023 and could not walk. Ordinarily she could walk without a cane with chronic, persistent right-sided weakness post a CVA from several years ago. However, that morning, she has ever since had to use a cane to ambulate. Patient went to [facility] outpatient center on the morning of 09/12/2023. Per patient report, the outpatient clinic told her that if something were to change to come back for reassessment and reevaluation. She was puzzled because she stated this was a change for her. Patient went home and had her friend bring her to the emergency department this morning by private vehicle. Patient denies shortness of breath. She denies chest pain. She has no visual changes. She has no abdominal pain. She has had no nausea vomiting or diarrhea symptoms. Dmitri rology was consulted in the ER and MRI of brain and echo advised. MRI Impression: Small 1.3 x 0.7 cm focus acute ischemia right centrum semiovale.Additional punctate acute micro-ischemia left centrum semiovale and left posterior temporal lobe. No acute hemorrhage/mass effect. 2. Atrophy and degenerative micro-ischemia within normal limits for patient's age. ER notifed neurology of findings for further recs. Plavix and ASA started. Will allow permissive HTN for 72 hours. 09/14/23 Pt resting in the chair. She reports continued weakness of the right side and using assistive device to stand and walk as balance is off. Discussed MRI in detail. Awaiting neurology consult recommendations. High intensity statin added. Will continue ASA and PLavix. Continue to allow permissive HTN. She deneis CP, SOB, H/A, Abd pain, N/V/D. - Review of Systems Constitutional: No Fever, No Chills Eyes: No Symptoms Ears, Nose, & Throat: No Symptoms Respiratory: No Cough, No Short Of Breath Cardiac: No Chest Pain, No Edema, No Syncope Abdominal/Gastrointestinal: Constipation, No Abdominal Pain, No Nausea, No Vomiting, No Diarrhea Genitourinary Symptoms: No Dysuria Musculoskeletal: No Back Pain, No Neck Pain Skin: No Rash Neurological: Gait Changes, Other (right sided weakness), No Dizziness, No Focal Weakness, No Sensory Changes Psychological: No Symptoms Endocrine: No Symptoms Hematologic/Lymphatic: No Symptoms Immunological/Allergic: No Symptoms Objective Exam General Appearance: no apparent distress, alert Neurologic Exam: alert, oriented x 3, cooperative, normal mood/affect, motor deficits (right side weakness,), motor weakness (right side), abnormal gait Skin Exam: normal color, warm, dry Eye Exam: PERRL, EOMI, eyes nml inspection Ears, Nose, Throat Exam: normal ENT inspection, pharynx normal, moist mucous membranes Neck Exam: normal inspection, non-tender, supple, full range of motion Respiratory Exam: normal breath sounds, lungs clear, No respiratory distress Cardiovascular Exam: regular rate/rhythm, normal heart sounds Gastrointestinal/Abdomen Exam: soft, No tenderness, No mass Extremity Exam: normal inspection, normal range of motion Back Exam: normal inspection, normal range of motion, No CVA tenderness, No vertebral tenderness Pelvic Exam: deferred Rectal Exam: deferred OBJECTIVE DATA Vital Signs: Vital Signs - 24 hr Temp Pulse Resp BP BP Pulse Ox 09/14/23 12:00 97.8 F 64 17 190/80 100 09/14/23 07:30 98.0 F 63 17 179/76 96 09/14/23 04:00 98.0 F 67 15 188/77 100 09/14/23 00:00 98.4 F 79 18 153/67 96 09/13/23 17:01 97.5 F 60 17 184/94 99 09/13/23 16:10 60 170/64 100 09/13/23 16:00 169/57 97 09/13/23 15:51 64 171/61 95 09/13/23 15:40 189/69 09/13/23 15:31 201/68 98 09/13/23 14:48 92 L 09/13/23 14:41 192/80 09/13/23 14:31 66 17 210/74 09/13/23 14:21 64 17 198/58 100 09/13/23 14:11 64 17 99 09/13/23 14:01 62 18 163/48 98 09/13/23 13:40 62 21 179/62 99 09/13/23 13:30 64 16 169/63 99 09/13/23 13:20 65 17 150/58 97 Pain Assessment - Last Documented Pain Intensity 0 Intake and Output: Intake & Output 09/12/23 09/13/23 09/14/23 09/15/23 11:59 11:59 11:59 11:59 Intake Total 408 Balance 408 Weight 60.1 kg 59.5 kg Lab Results: Lab Results-Last 24 Hours 09/13/23 09/13/23 09/13/23 Range/Units 11:34 13:54 15:40 WBC (4.0-10.5) x10^3/uL RBC (4.1-5.4) x10^6/uL Hgb (12.0-16.0) g/dL Hct (35-47) % MCV (78-100) fL MCH (26-32) pg MCHC (32-36) g/dL RDW (11.5-14.0) % Plt Count (150-450) x10^3/uL MPV (7.5-11.0) fL PT 10.7 (9.4-12.5) SECONDS INR 0.98 (0.8-3.0) Sodium (137-145) mmol/L Potassium (3.5-5.1) mmol/L Chloride (98-107) mmol/L Carbon Dioxide (22-30) mmol/L Anion Gap (5-15) MEQ/L BUN (7-17) mg/dL Creatinine (0.52-1.04) mg/dL Estimated GFR ML/MIN Glucose (74-106) mg/dL POC Glucometer (74 to 106) mg/dL Calcium (8.4-10.2) mg/dL Total Bilirubin (0.2-1.3) mg/dL AST (14-36) U/L ALT (0-35) U/L Alkaline Phosphatase (38-126) U/L Troponin I < 0.012 (0.000-0.034) ng/mL Serum Total Protein (6.3-8.2) g/dL Albumin (3.5-5.0) g/dL Triglycerides (30-150) mg/dL Cholesterol (50-200) mg/dL LDL Cholesterol (30-100) mg/dL HDL Cholesterol (40-60) mg/dL Heart Disease Risk Ratio Urine Color Yellow (Yellow) Urine Appearance Clear (Clear) Urine pH 5.0 (4.6-8.0) Ur Specific [place] 1.025 (1.005-1.030) Urine Protein 100 A (Negative) Urine Glucose (UA) 500 A (Negative) mg/dL Urine Ketones Negative (Negative) Urine Blood Negative (Negative) Urine Nitrite Negative (Negative) Urine Bilirubin Negative (Negative) Urine Urobilinogen 0.2 (0.2) mg/dL Ur Leukocyte Esterase Negative (Negative) U Hyaline Cast (Auto) 3-5 A (0-2) /LPF Urine Microscopic RBC 0-2 (0-5) /HPF Urine Microscopic WBC 6-10 A (0-5) /HPF Ur Epithelial Cells Few (None Seen) /HPF Urine Bacteria None Seen (None Seen) /HPF Urine Culture Reflexed NO (NO) 09/13/23 09/13/23 09/13/23 Range/Units 17:29 19:41 20:49 WBC (4.0-10.5) x10^3/uL RBC (4.1-5.4) x10^6/uL Hgb (12.0-16.0) g/dL Hct (35-47) % MCV (78-100) fL MCH (26-32) pg MCHC (32-36) g/dL RDW (11.5-14.0) % Plt Count (150-450) x10^3/uL MPV (7.5-11.0) fL PT (9.4-12.5) SECONDS INR (0.8-3.0) Sodium (137-145) mmol/L Potassium (3.5-5.1) mmol/L Chloride (98-107) mmol/L Carbon Dioxide (22-30) mmol/L Anion Gap (5-15) MEQ/L BUN (7-17) mg/dL Creatinine (0.52-1.04) mg/dL Estimated GFR ML/MIN Glucose (74-106) mg/dL POC Glucometer 91 272 H (74 to 106) mg/dL Calcium (8.4-10.2) mg/dL Total Bilirubin (0.2-1.3) mg/dL AST (14-36) U/L ALT (0-35) U/L Alkaline Phosphatase (38-126) U/L Troponin I < 0.012 (0.000-0.034) ng/mL Serum Total Protein (6.3-8.2) g/dL Albumin (3.5-5.0) g/dL Triglycerides (30-150) mg/dL Cholesterol (50-200) mg/dL LDL Cholesterol (30-100) mg/dL HDL Cholesterol (40-60) mg/dL Heart Disease Risk Ratio Urine Color (Yellow) Urine Appearance (Clear) Urine pH (4.6-8.0) Ur Specific [place] (1.005-1.030) Urine Protein (Negative) Urine Glucose (UA) (Negative) mg/dL Urine Ketones (Negative) Urine Blood (Negative) Urine Nitrite (Negative) Urine Bilirubin (Negative) Urine Urobilinogen (0.2) mg/dL Ur Leukocyte Esterase (Negative) U Hyaline Cast (Auto) (0-2) /LPF Urine Microscopic RBC (0-5) /HPF Urine Microscopic WBC (0-5) /HPF Ur Epithelial Cells (None Seen) /HPF Urine Bacteria (None Seen) /HPF Urine Culture Reflexed (NO) 09/14/23 09/14/23 09/14/23 Range/Units 06:00 06:00 06:00 WBC 8.2 (4.0-10.5) x10^3/uL RBC 4.11 (4.1-5.4) x10^6/uL Hgb 11.4 L (12.0-16.0) g/dL Hct 36.2 (35-47) % MCV 88.1 (78-100) fL MCH 27.7 (26-32) pg MCHC 31.5 L (32-36) g/dL RDW 13.3 (11.5-14.0) % Plt Count 256 (150-450) x10^3/uL MPV 10.2 (7.5-11.0) fL PT (9.4-12.5) SECONDS INR (0.8-3.0) Sodium 136 L (137-145) mmol/L Potassium 4.5 (3.5-5.1) mmol/L Chloride 107 (98-107) mmol/L Carbon Dioxide 25 (22-30) mmol/L Anion Gap 9.0 (5-15) MEQ/L BUN 25 H (7-17) mg/dL Creatinine 0.93 (0.52-1.04) mg/dL Estimated GFR 64.5 ML/MIN Glucose 190 H (74-106) mg/dL POC Glucometer (74 to 106) mg/dL Calcium 9.1 (8.4-10.2) mg/dL Total Bilirubin 0.50 (0.2-1.3) mg/dL AST 43 H (14-36) U/L ALT 35 (0-35) U/L Alkaline Phosphatase 136 H (38-126) U/L Troponin I (0.000-0.034) ng/mL Serum Total Protein 6.7 (6.3-8.2) g/dL Albumin 3.4 L (3.5-5.0) g/dL Triglycerides 142 (30-150) mg/dL Cholesterol 208 H (50-200) mg/dL LDL Cholesterol 124 H (30-100) mg/dL HDL Cholesterol 49 (40-60) mg/dL Heart Disease Risk Ratio 4.2 Urine Color (Yellow) Urine Appearance (Clear) Urine pH (4.6-8.0) Ur Specific [place] (1.005-1.030) Urine Protein (Negative) Urine Glucose (UA) (Negative) mg/dL Urine Ketones (Negative) Urine Blood (Negative) Urine Nitrite (Negative) Urine Bilirubin (Negative) Urine Urobilinogen (0.2) mg/dL Ur Leukocyte Esterase (Negative) U Hyaline Cast (Auto) (0-2) /LPF Urine Microscopic RBC (0-5) /HPF Urine Microscopic WBC (0-5) /HPF Ur Epithelial Cells (None Seen) /HPF Urine Bacteria (None Seen) /HPF Urine Culture Reflexed (NO) 09/14/23 09/14/23 09/14/23 Range/Units 07:09 08:56 12:10 WBC (4.0-10.5) x10^3/uL RBC (4.1-5.4) x10^6/uL Hgb (12.0-16.0) g/dL Hct (35-47) % MCV (78-100) fL MCH (26-32) pg MCHC (32-36) g/dL RDW (11.5-14.0) % Plt Count (150-450) x10^3/uL MPV (7.5-11.0) fL PT (9.4-12.5) SECONDS INR (0.8-3.0) Sodium (137-145) mmol/L Potassium (3.5-5.1) mmol/L Chloride (98-107) mmol/L Carbon Dioxide (22-30) mmol/L Anion Gap (5-15) MEQ/L BUN (7-17) mg/dL Creatinine (0.52-1.04) mg/dL Estimated GFR ML/MIN Glucose (74-106) mg/dL POC Glucometer 164 H 116 H 226 H (74 to 106) mg/dL Calcium (8.4-10.2) mg/dL Total Bilirubin (0.2-1.3) mg/dL AST (14-36) U/L ALT (0-35) U/L Alkaline Phosphatase (38-126) U/L Troponin I (0.000-0.034) ng/mL Serum Total Protein (6.3-8.2) g/dL Albumin (3.5-5.0) g/dL Triglycerides (30-150) mg/dL Cholesterol (50-200) mg/dL LDL Cholesterol (30-100) mg/dL HDL Cholesterol (40-60) mg/dL Heart Disease Risk Ratio Urine Color (Yellow) Urine Appearance (Clear) Urine pH (4.6-8.0) Ur Specific [place] (1.005-1.030) Urine Protein (Negative) Urine Glucose (UA) (Negative) mg/dL Urine Ketones (Negative) Urine Blood (Negative) Urine Nitrite (Negative) Urine Bilirubin (Negative) Urine Urobilinogen (0.2) mg/dL Ur Leukocyte Esterase (Negative) U Hyaline Cast (Auto) (0-2) /LPF Urine Microscopic RBC (0-5) /HPF Urine Microscopic WBC (0-5) /HPF Ur Epithelial Cells (None Seen) /HPF Urine Bacteria (None Seen) /HPF Urine Culture Reflexed (NO) Radiology Exams: Radiology Procedures Category Date Time Status CAROTID BILATERAL [US] Routine Exams 09/13/23 17:30 Ordered ECHO W/2D AND DOPPLER [US] Stat Exams 09/13/23 14:47 Taken HEAD WITHOUT CONTRAST [CT] Stat Exams 09/13/23 11:40 Completed MRI BRAIN W/O CONTRAST [MRI] Stat Exams 09/13/23 14:29 Completed Assessment/Plan (1) CVA (cerebral vascular accident) Current Visit: Yes Status: Acute Code(s): I63.9 - CEREBRAL INFARCTION, UNSPECIFIED (2) HTN (hypertension) Current Visit: Yes Status: Acute Code(s): I10 - ESSENTIAL (PRIMARY) HYPERTENSION (3) Weakness Current Visit: Yes Status: Acute Code(s): R53.1 - WEAKNESS (4) Hyperlipidemia Current Visit: Yes Status: Acute Code(s): E78.5 - HYPERLIPIDEMIA, UNSPECIFIED (5) Acute on chronic kidney failure Current Visit: Yes Status: Acute Assessment & Plan: (1) CVA (cerebral vascular accident) Current Visit: Yes Status: Acute Assessment & Plan: - CT brain 09/13/23 Impression: Continued nonacute senile brain with remote bilateral infarcts as detailed. - Brain MRI 09/13/23 Impression: 1. Small 1.3 x 0.7 cm focus acute ischemia right centrum semiovale. Additional punctate acute micro-ischemia left centrum semiovale and left posterior temporal lobe. No acute hemorrhage/mass effect. 2. Atrophy and degenerative micro-ischemia within normal limits for patient's age. - increased right sided weakness. - Tele neurology consult in ER- ER MD made consult aware of + MRI results - carotid duplex- unable to have until Saturday - Echo - pending - Lipid panel in AM - PT/OT eval - bedside swallow screen - Neuro checks Q4 - EKG reviewed - recheck in AM - ASA and plavix started in ER- continue per tele neurology orders 09/14/23 - Lipid panel reviewed needs high intensity statin at D/C, started Zocor 20mg daily IP - Awaiting neurology recs post MRI results - May need tx - Continued right sided increased weakness, using walker due to instability - Echo EF 74% Code(s): I63.9 - CEREBRAL INFARCTION, UNSPECIFIED (2) HTN (hypertension) Current Visit: Yes Status: Acute Assessment & Plan: - allow permissive htn for 72 hr - Hold home BP meds Code(s): I10 - ESSENTIAL (PRIMARY) HYPERTENSION (3) Weakness Current Visit: Yes Status: Acute Assessment & Plan: - PT/OT - BR with BRP Code(s): R53.1 - WEAKNESS (4) Hyperlipidemia Current Visit: Yes Status: Acute Assessment & Plan: -lipid panel reviewed - start high intensity statin Code(s): E78.5 - HYPERLIPIDEMIA, UNSPECIFIED (5) Acute on chronic kidney failure Current Visit: Yes Status: Acute Assessment & Plan: - Gentle hydration - IVF 09/14/23 - resolved Code(s): N17.9 - ACUTE KIDNEY FAILURE, UNSPECIFIED; N18.9 - CHRONIC KIDNEY DISEASE, UNSPECIFIED VTE: plavix Next of Kin: Malka Mitchellley [phone] D/C plan: 2-3 days Code(s): N17.9 - ACUTE KIDNEY FAILURE, UNSPECIFIED; N18.9 - CHRONIC KIDNEY DISEASE, UNSPECIFIED
[2023-09-14] MEDS: Sodium Chloride 0.9% 1000 ML 1,000 ML IV SCH (13:57)
[2023-09-14] MEDS ORDERED: Senokot-S Tablet PO SCH (14:00)
[2023-09-14] MEDS ORDERED: CLONIDINE 0.1 MG TABLET PO ONE (15:57)
[2023-09-14] MEDS ORDERED: CLONIDINE 0.1 MG TABLET ONE (16:02)
--- NOTE | 2023-09-14 18:06 | PCM.DS ---
Discharge Summary Date of Admission: 09/13/23 16:48 Date of Discharge: 09/14/23 Admitting Physician: GAYLE LAWSON MD Consults: Consults on Case 09/13/23 14:29 Consult Tele-Health [Tele-Health Consult] ROUTINE Primary Care Provider: LEEANNA URRUTIA NÉSTOR Allergies Allergies metformin Allergy (Verified 09/13/23 11:34) Penicillins Allergy (Verified 09/13/23 11:34) Tightness of Throat Sulfa (Sulfonamide Antibiotics) Allergy (Verified 09/13/23 11:34) Nausea Hospital Summary - Hospital Course Hospital Course: I have personally seen and examined this patient and have discussed pertinent aspects of care with Karl Teague N.P. and agree with the history, physical examination (any modifications based on my personal exam will be noted above), assessment, and plan as outlined in the original note. Please see immediately above for my summary of findings and additional assessment and plan. Also, any meaningful corrections or explanations to the subjective and objective portions of their note will be noted. This visit was conducted via telemedicine after consent obtained. Labs and imaging reviewed. Dakotah Slade MD [facility] Admitted with new stroke. Has history of prior CVA with right hemiparesis but has increased weakness on right side. She feels slightly better today. LDL is elevated. Will change to high intensity statin. MRI shows multiple areas of acute ischemia. These results were discussed with Neurology. Neurology recommends transfer to higher level of care. Patient will need HELEN and other studies done. She will be dismissed today so she can transfer. 09/13/23 is a 72 year old female with a PMHX of stroke with right sided deficit, hypertension, diabetes, hyperlipidemia, gastroesophageal reflux disease.She states that her portfolio assistant recently changed her blood pressure medication (1 month ago). Patient was last known well on the evening of 09/11/2023. Patient woke up on 09/12/2023 and could not walk. Ordinarily she could walk without a cane with chronic, persistent right-sided weakness post a CVA from several years ago. However, that morning, she has ever since had to use a cane to ambulate. Patient went to [facility] on the morning of 09/12/2023. Per patient report, the outpatient clinic told her that if something were to change to come back for reassessment and reevaluation. She was puzzled because she stated this was a change for her. Patient went home and had her friend bring her to the emergency department this morning by private vehicle. Patient denies shortness of breath. She denies chest pain. She has no visual changes. She has no abdominal pain. She has had no nausea vomiting or diarrhea symptoms. Neurology was consulted in the ER and MRI of brain and echo advised. MRI Impression: Small 1.3 x 0.7 cm focus acute ischemia right centrum semiovale.Additional punctate acute micro-ischemia left centrum semiovale and left posterior temporal lobe. No acute hemorrhage/mass effect. 2. Atrophy and degenerative micro-ischemia within normal limits for patient's age. ER notifed neurology of findings for further recs. Plavix and ASA started. Will allow permissive HTN for 72 hours. 09/14/23 Pt resting in the chair. She reports continued weakness of the right side and using assistive device to stand and walk as balance is off. Discussed MRI in detail. Awaiting neurology consult recommendations. High intensity statin ad ded. Will continue ASA and PLavix. Continue to allow permissive HTN. She deneis CP, SOB, H/A, Abd pain, N/V/D. Neurology reassessed pt and reviewed MRI today and recommended transfer to higher level of care for further evaluation. They also explained most likely cause is HTN and to slowly try to lower BP. Clonidine 0.1mg started. - Vitals & Intake/Output Vital Signs: Vital Signs Temperature 97.8 F 09/14/23 16:00 Pulse Rate 68 09/14/23 16:00 Respiratory Rate 17 09/14/23 16:00 Blood Pressure 219/88 09/14/23 16:00 O2 Sat by Pulse Oximetry 97 09/14/23 16:00 Intake & Output: Intake & Output 09/12/23 09/13/23 09/14/23 09/15/23 11:59 11:59 11:59 11:59 Intake Total 408 Balance 408 Weight 60.1 kg 59.5 kg - Lab Result Diagrams: 09/14/23 06:00 09/14/23 06:00 Lab Results-Last 24 Hrs: Lab Results-Last 24 Hours 09/13/23 09/13/23 09/14/23 Range/Units 19:41 20:49 06:00 WBC (4.0-10.5) x10^3/uL RBC (4.1-5.4) x10^6/uL Hgb (12.0-16.0) g/dL Hct (35-47) % MCV (78-100) fL MCH (26-32) pg MCHC (32-36) g/dL RDW (11.5-14.0) % Plt Count (150-450) x10^3/uL MPV (7.5-11.0) fL Sodium (137-145) mmol/L Potassium (3.5-5.1) mmol/L Chloride (98-107) mmol/L Carbon Dioxide (22-30) mmol/L Anion Gap (5-15) MEQ/L BUN (7-17) mg/dL Creatinine (0.52-1.04) mg/dL Estimated GFR ML/MIN Glucose (74-106) mg/dL POC Glucometer 272 H (74 to 106) mg/dL Calcium (8.4-10.2) mg/dL Total Bilirubin (0.2-1.3) mg/dL AST (14-36) U/L ALT (0-35) U/L Alkaline Phosphatase (38-126) U/L Troponin I < 0.012 (0.000-0.034) ng/mL Serum Total Protein (6.3-8.2) g/dL Albumin (3.5-5.0) g/dL Triglycerides 142 (30-150) mg/dL Cholesterol 208 H (50-200) mg/dL LDL Cholesterol 124 H (30-100) mg/dL HDL Cholesterol 49 (40-60) mg/dL Heart Disease Risk Ratio 4.2 09/14/23 09/14/23 09/14/23 Range/Units 06:00 06:00 07:09 WBC 8.2 (4.0-10.5) x10^3/uL RBC 4.11 (4.1-5.4) x10^6/uL Hgb 11.4 L (12.0-16.0) g/dL Hct 36.2 (35-47) % MCV 88.1 (78-100) fL MCH 27.7 (26-32) pg MCHC 31.5 L (32-36) g/dL RDW 13.3 (11.5-14.0) % Plt Count 256 (150-450) x10^3/uL MPV 10.2 (7.5-11.0) fL Sodium 136 L (137-145) mmol/L Potassium 4.5 (3.5-5.1) mmol/L Chloride 107 (98-107) mmol/L Carbon Dioxide 25 (22-30) mmol/L Anion Gap 9.0 (5-15) MEQ/L BUN 25 H (7-17) mg/dL Creatinine 0.93 (0.52-1.04) mg/dL Estimated GFR 64.5 ML/MIN Glucose 190 H (74-106) mg/dL POC Glucometer 164 H (74 to 106) mg/dL Calcium 9.1 (8.4-10.2) mg/dL Total Bilirubin 0.50 (0.2-1.3) mg/dL AST 43 H (14-36) U/L ALT 35 (0-35) U/L Alkaline Phosphatase 136 H (38-126) U/L Troponin I (0.000-0.034) ng/mL Serum Total Protein 6.7 (6.3-8.2) g/dL Albumin 3.4 L (3.5-5.0) g/dL Triglycerides (30-150) mg/dL Cholesterol (50-200) mg/dL LDL Cholesterol (30-100) mg/dL HDL Cholesterol (40-60) mg/dL Heart Disease Risk Ratio 09/14/23 09/14/23 09/14/23 Range/Units 08:56 12:10 15:58 WBC (4.0-10.5) x10^3/uL RBC (4.1-5.4) x10^6/uL Hgb (12.0-16.0) g/dL Hct (35-47) % MCV (78-100) fL MCH (26-32) pg MCHC (32-36) g/dL RDW (11.5-14.0) % Plt Count (150-450) x10^3/uL MPV (7.5-11.0) fL Sodium (137-145) mmol/L Potassium (3.5-5.1) mmol/L Chloride (98-107) mmol/L Carbon Dioxide (22-30) mmol/L Anion Gap (5-15) MEQ/L BUN (7-17) mg/dL Creatinine (0.52-1.04) mg/dL Estimated GFR ML/MIN Glucose (74-106) mg/dL POC Glucometer 116 H 226 H 183 H (74 to 106) mg/dL Calcium (8.4-10.2) mg/dL Total Bilirubin (0.2-1.3) mg/dL AST (14-36) U/L ALT (0-35) U/L Alkaline Phosphatase (38-126) U/L Troponin I (0.000-0.034) ng/mL Serum Total Protein (6.3-8.2) g/dL Albumin (3.5-5.0) g/dL Triglycerides (30-150) mg/dL Cholesterol (50-200) mg/dL LDL Cholesterol (30-100) mg/dL HDL Cholesterol (40-60) mg/dL Heart Disease Risk Ratio - Radiology Exams Ordered Rad Exams-Entire Visit: Radiology Procedures Category Date Time Status CAROTID BILATERAL [US] Routine Exams 09/13/23 17:30 Ordered ECHO W/2D AND DOPPLER [US] Stat Exams 09/13/23 14:47 Taken HEAD WITHOUT CONTRAST [CT] Stat Exams 09/13/23 11:40 Completed MRI BRAIN W/O CONTRAST [MRI] Stat Exams 09/13/23 14:29 Completed - Procedures and Test Procedures and Tests throughout Hospitalization: Therapy Orders & Screens 09/13/23 17:01 PT Eval & Treat ( Order) ONCE Reason for Eval:: Strengthening, balance, transferring Diagnosis: CVA rule out; hypertensive urgency EKG REPEAT IN AM Comment: 09/13/23 17:31 OT Eval and Treat ( Order) ROUTINE Comment: Physician Instructions: Reason For Exam: Diagnosis: CVA rule out; hypertensive urgency 09/13/23 18:43 OT Screen per Nursing Assess ONCE Comment: Protocol Order Physician Instructions: Greater than 3 points order OT Admission Screening Reason For Exam: Triggered on Admission Diagnosis: CVA rule out; hypertensive urgency Open Wound/Cellutlitis/Pressure Ulcers: No Acute Fx/ORIF/Change in wt bearing status: No Severe MUSCULOSKELETAL pain: No ADL Dysfunction: Yes Acute CVA w/Hemiparesis/Hemiplegia: Yes Decreased Functional Mobility/Strength: Yes Sprain/Strain: No Acute Post-op Mobility Dysfunction: No Total Points: 9 PT Screen per Nursing Assess ONCE Comment: Protocol Order Physician Instructions: Greater than 3 points order PT Admission Screenin Reason For Exam: Triggered on Admission Diagnosis: CVA rule out; hypertensive urgency Open Wound/Cellutlitis/Pressure Ulcers: No Acute Fx/ORIF/Change in wt bearing status: No Severe MUSCULOSKELETAL pain: No ADL Dysfunction: Yes Acute CVA w/Hemiparesis/Hemiplegia: Yes Decreased Functional Mobility/Strength: Yes Sprain/Strain: No Acute Post-op Mobility Dysfunction: No Total Points: 9 Discharge Exam General Appearance: no apparent distress, alert Neurologic Exam: alert, oriented x 3, cooperative, normal mood/affect, sensory deficit, abnormal gait, other (increased right sideded weakness), No motor deficits Eye Exam: PERRL, EOMI, eyes nml inspection Ears, Nose, Throat Exam: normal ENT inspection, pharynx normal, moist mucous membranes Neck Exam: normal inspection, non-tender, supple, full range of motion Respiratory Exam: normal breath sounds, lungs clear, No respiratory distress Cardiovascular Exam: regular rate/rhythm, normal heart sounds Gastrointestinal/Abdomen Exam: soft, No tenderness, No mass Pelvic Exam: deferred Rectal Exam: deferred Back Exam: normal inspection, normal range of motion, No CVA tenderness, No vertebral tenderness Extremity Exam: normal inspection Skin Exam: normal color, warm, dry Final Diagnosis/Problem List - Final Discharge Diagnosis/Problem (1) CVA (cerebral vascular accident) Current Visit: Yes Status: Acute Code(s): I63.9 - CEREBRAL INFARCTION, UNSPECIFIED (2) HTN (hypertension) Current Visit: Yes Status: Acute Code(s): I10 - ESSENTIAL (PRIMARY) HYPERTENSION (3) Weakness Current Visit: Yes Status: Acute Code(s): R53.1 - WEAKNESS (4) Hyperlipidemia Current Visit: Yes Status: Acute Code(s): E78.5 - HYPERLIPIDEMIA, UNSPECIFIED (5) Acute on chronic kidney failure Current Visit: Yes Status: Acute Assessment & Plan: (1) CVA (cerebral vascular accident) Current Visit: Yes Status: Acute Assessment & Plan: - CT brain 09/13/23 Impression: Continued nonacute senile brain with remote bilateral infarcts as detailed. - Brain MRI 09/13/23 Impression: 1. Small 1.3 x 0.7 cm focus acute ischemia right centrum semiovale. Additional punctate acute micro-ischemia left centrum semiovale and left posterior temporal lobe. No acute hemorrhage/mass effect. 2. Atrophy and degenerative micro-ischemia within normal limits for patient's age. - increased right sided weakness. - Tele neurology consult in ER- ER MD made consult aware of + MRI results - carotid duplex- unable to have until Saturday - Echo - pending - Lipid panel in AM - PT/OT eval - bedside swallow screen - Neuro checks Q4 - EKG reviewed - recheck in AM - ASA and plavix started in ER- continue per tele neurology orders 09/14/23 - Lipid panel reviewed needs high intensity statin at D/C, started Zocor 20mg daily IP - Awaiting neurology recs post MRI results - Continued right sided increased weakness, using walker due to instability - Echo EF 74% - Neurology recommends tx to higher level of care. Code(s): I63.9 - CEREBRAL INFARCTION, UNSPECIFIED (2) HTN (hypertension) Current Visit: Yes Status: Acute Assessment & Plan: - allow permissive htn for 72 hr - Hold home BP meds 09/14 - Neurology suggested BP be brought down slowly, Clonidine 0.1 mg x1 gave Code(s): I10 - ESSENTIAL (PRIMARY) HYPERTENSION (3) Weakness Current Visit: Yes Status: Acute Assessment & Plan: - PT/OT - BR with BRP - Increased right sided weakness Code(s): R53.1 - WEAKNESS (4) Hyperlipidemia Current Visit: Yes Status: Acute Assessment & Plan: -lipid panel reviewed - start high intensity statin Code(s): E78.5 - HYPERLIPIDEMIA, UNSPECIFIED (5) Acute on chronic kidney failure Current Visit: Yes Status: Acute Assessment & Plan: - Gentle hydration - IVF 09/14/23 - resolved Code(s): N17.9 - ACUTE KIDNEY FAILURE, UNSPECIFIED; N18.9 - CHRONIC KIDNEY DISEASE, UNSPECIFIED - Discharge Discharge Date: 09/14/23 (another hospital) Disposition: XFER OTHER Condition: Fair Prescriptions: New Aspirin EC 81 mg [Ecotrin 81 mg] 81 mg PO DAILY 30 Days #30 tablet Clopidogrel Bisulfate [PLAVIX Tablet] 75 mg PO DAILY 30 Days #30 tablet Atorvastatin Calcium [Lipitor 20MG Tablet] 20 mg PO DAILY 30 Days #30 tab Continue Insulin Degludec [Tresiba Flextouch U-200] 25 units SQ DAILY Insulin Aspart [Novolog] 0 unit SQ TID Losartan Potassium 50 mg [Cozaar 50 MG] 50 mg PO DAILY Benzonatate 100 mg PO TID Follow up with: LEEANNA URRUTIA MD [Primary Care Provider] - PAULY LARRY [Family Provider] -
[2023-09-14 19:43] VITALS: BP 187/73; PULSE 63; RESP 16; O2SAT 99
[2023-09-14] MEDS ORDERED: ZOCOR 20MG PO SCH (22:00)
== END 2023-09-14 21:23 | DRG 65 ==
LOC: ED 11:19 → MED SURG 16:48
PROVIDERS: ADMIT Internal Medicine; ATTEND Internal Medicine
DX: I63.9 Cerebral infarction, unspecified (principal); N17.9 Acute kidney failure, unspecified; I10 Essential (primary) hypertension; R53.1 Weakness; E78.5 Hyperlipidemia, unspecified; E11.9 Type 2 diabetes mellitus without complications; Z86.73 Personal history of transient ischemic attack (TIA), and cerebral infarction without residual deficits; Z79.899 Other long term (current) drug therapy; Z20.828 Contact with and (suspected) exposure to other viral communicable diseases; Z79.01 Long term (current) use of anticoagulants
CPT/HCPCS: 36000; 36415; 70450; 70551; 80053; 80061; 81001; 82077; 82947; 83721; 84484; 85025; 85027; 85610; 93005; 93041; 93306; 99285; Q3014; J1817; A9270-GY

== ENCOUNTER 2024-02-23 11:27 | Emergency (ER) | payer MEDICARE ==
[2024-02-23 11:52] VITALS: TEMP 97.5
[2024-02-23 12:08] LABS: Absolute Neutrophil Ct (ANC) 7.08 x10^3/uL (1.56-6.13); BASOPHIL % 0.6 % (0.1-1.2); Basophil (Absolute #) 0.06 x10^3/uL (0.01-0.08); Eosinophil % 2.3 % (0.7-5.8); Eosinophil (Absolute #) 0.23 x10^3/uL (0.04-0.36); Hematocrit 37.5 % (34.1-44.9); Hemoglobin 12.2 g/dL (11.2-15.7); IMMATURE GRAN # 0.17 x10^3u/L (0.001-0.031); IMMATURE GRAN % 1.7 % (0.001-0.429); Lymphocytes % 14.2 % (19.3-51.7); Mean Cell Volume 89.1 fL (79.4-94.8); Mean Corpuscular Hgb Concent. 32.5 g/dL (32.2-35.5); Mean Platelet Volume 10.6 fL (9.4-12.3); Monocytes % 9.1 % (4.7-12.5); Neutrophil % 72.1 % (34.0-71.1); Platelet Count 318 x10^3/uL (182-369); Red Blood Count 4.21 x10^6/uL (3.93-5.22); Red Cell Distribution Width 13.6 % (11.7-14.4); White Blood Count 9.8 x10^3/uL (3.98-10.04)
[2024-02-23 12:23] LABS: ANION GAP 15.4 MEQ/L (5-15); Calcium 9.7 mg/dL (8.4-10.2); Creatinine 1 1.03 mg/dL (0.52-1.04); EST GLOMERULAR FILTRATION RATE 56.7 ML/MIN; Potassium 4.9 mmol/L (3.5-5.1); Total Protein 7.5 g/dL (6.3-8.2)
[2024-02-23 12:35] LABS: Erythrocyte Sedimentation Rate 45 mm/hr (0-20)
[2024-02-23 12:36] LABS: NT PRO BNPII 967 pg/mL (<300); TROPONIN < 0.012 ng/mL (0.000-0.033)
[2024-02-23 12:37] VITALS: PULSE 67; RESP 23
--- NOTE | 2024-02-23 12:41 | ERPHSYRPT ---
- History of Present Illness Time Seen by Provider: 02/23/24 11:29 Source: patient Exam Limitations: no limitations Patient Subjective Stated Complaint: Hyperglycemia Triage Nursing Assessment: Patient brought into ED per EMS and transferred to bed with assist of 2. Patient A+O X3. Patient's skin pink, warm and dry. Patient complains of increased weakness for the past couple of days. Patient denies pain or discomfort. EMS reports initial BS of. BS here noted to be 409. Physician History: Patient brought in via EMS. Per the family and the patient she has been having increased weakness for approximately 1 week. Patient was discharged from the hospital last week. Does not appear to be at this hospital as we do not have any information on it. No falls no trauma. Initial complaint was for elevated blood sugar. Patient does live with her adult daughter. She feels that she may not be taking her blood sugar medication as prescribed. She has no focal neurological deficits, no specific complaints just a generalized weakness. Blood sugar noted to be 409 here. Allergies/Adverse Reactions: metformin Allergy (Verified 02/23/24 11:41) Penicillins Allergy (Verified 02/23/24 11:41) Tightness of Throat Sulfa (Sulfonamide Antibiotics) Allergy (Verified 02/23/24 11:41) Nausea Home Medications: Insulin Degludec [Tresiba Flextouch U-200] 25 units SQ DAILY 03/18/19 [History] Insulin Aspart [Novolog] 0 unit SQ TID 02/05/23 [History] Atorvastatin Calcium [Lipitor 20MG Tablet] 80 mg PO DAILY 02/23/24 [History] Famotidine [Pepcid] 1 tab PO DAILY 02/23/24 [History] Metoprolol Succinate 50 mg [Toprol Xl 50 MG] 1 tab PO DAILY 02/23/24 [History] Hx Tetanus, Diphtheria Vaccination/Date Given: Yes Hx Influenza Vaccination/Date Given: Yes Hx Pneumococcal Vaccination/Date Given: Yes Immunizations Up to Date: Yes Travel Risk - International Travel Have you traveled outside of the country in past 3 weeks: No - Emerging Infectious Disease Are you exhibiting symptoms associated with any current EIDs: No - Past Medical History Pertinent Past Medical History: Yes Neurological History: Stroke, TIA ENT History: No Pertinent History Cardiac History: High Cholesterol, Hypertension Respiratory History: No Pertinent History Endocrine Medical History: Diabetes Type II Musculoskeletal History: Arthritis GI Medical History: GERD, Gallbladder Disease History: No Pertinent History Psycho-Social History: No Pertinent History Female Reproductive Disorders: No Pertinent History Other Medical History: -SWELLING IN BLE. -PSH: GALLBLADDER, PEG-TUBE - Past Surgical History Past Surgical History: Yes Neuro Surgical History: No Pertinent History Cardiac: No Pertinent History Respiratory: No Pertinent History Gastrointestinal: Cholecystectomy Genitourinary: No Pertinent History Musculoskeletal: No Pertinent History Female Surgical History: No Pertinent History Other Surgical History: colonoscopy w/ polyps removed Significant Family History: no pertinent family hx - Social History Smoking Status: Former smoker How long have you smoked: 11 years Exposure to second hand smoke: No Alcohol Use: None Drug Use: none Patient Lives Alone: Yes - Social Determinants of Health Will the patient participate in the screening: Yes Do you worry about a steady place to live?: No Do you have any problems with any of the following?: No known problems In the past 12 months,have you had to go without utilities?: No Transportation Issues: No Has anyone in your support network made you feel unsafe?: No Have you or anyone in your house had to go without enough: No - Nursing Vital Signs Nursing Vital Signs: Initial Vital Signs Pulse Rate 63 02/23/24 11:29 Respiratory Rate 6 L 02/23/24 11:29 Blood Pressure 212/75 02/23/24 11:29 O2 Sat by Pulse Oximetry 98 02/23/24 11:29 Pain Scale Pain Intensity 0 - Physical Exam SpO2 Interpretation: normal SpO2: 98 Comments: 02/23/24 12:40 Review of Systems Constitutional: Negative for fever. HENT: Negative for congestion. Respiratory: Negative for shortness of breath. Cardiovascular: Negative for chest pain. Gastrointestinal: Negative for abdominal pain. Genitourinary: Negative for dysuria. Musculoskeletal: Negative for back pain. Skin: Negative for rash. Neurological: Negative for headaches. Generalized weakness, no specific focal neurological deficits Psychiatric/Behavioral: Negative for behavioral problems. All other systems reviewed and are negative. Physical Exam Vitals signs and nursing note reviewed. Constitutional: Appearance: Patient is well-developed. HENT: Head: Normocephalic and atraumatic. Eyes: Conjunctiva/sclera: Conjunctivae normal. Neck: Musculoskeletal: Normal range of motion. Trachea: No tracheal deviation. Cardiovascular: Rate and Rhythm: Normal rate. Pulmonary: Effort: Pulmonary effort is normal. No respiratory distress. Abdominal: Palpations: Abdomen is soft. Musculoskeletal: General: No deformity. Skin: General: Skin is warm and dry. Neurological/ Psychiatric: Mental Status: Mental status, behavior, interaction with environment is appropriate for patient's age and condition. Moving all 4 extremities with appropriate strength. Patient did have an issue getting up and moving over to bed off the cot. Patient does have a history of right-sided weakness and right facial droop due to previous stroke. This is still somewhat present. Patient is able to lift her right arm and right leg against gravity. Her right corner of her mouth demonstrates facial droop. Her daughter is in the room and states that this is baseline. 02/23/24 14:23 - Course Nursing assessment & vital signs reviewed: Yes EKG Interpreted by Me: Sinus Rhythm (Sinus rhythm, rate of 63, AK interval 160, QRS 84, QTc is 462, no STEMI) Ordered Tests: Active Orders 24 hr Category Date Time Status Airplane Flight Attendant STAT Care 02/23/24 11:47 Active EKG-ER Only STAT Care 02/23/24 11:46 Active IV Insertion STAT Care 02/23/24 11:46 Active CHEST 1 VIEW (PORTABLE) Stat Exams 02/23/24 11:46 Taken HEAD WITHOUT CONTRAST [CT] Stat Exams 02/23/24 11:48 Completed BLOOD CULTURE Stat Lab 02/23/24 12:51 Received CBC W DIFF Stat Lab 02/23/24 12:02 Completed CK-Creatinine Phosphokinase Stat Lab 02/23/24 12:02 Completed CMP Stat Lab 02/23/24 12:02 Completed CULTURE,URINE Stat Lab 02/23/24 13:00 Received Erythrocyte Sedimentation Rate Stat Lab 02/23/24 12:02 Completed LIPASE Stat Lab 02/23/24 12:02 Completed Lactic Acid Stat Lab 02/23/24 12:05 Completed NT PRO BNPII Stat Lab 02/23/24 12:02 Completed POCT GLUCOSE Stat Lab 02/23/24 11:31 Completed POCT GLUCOSE Stat Lab 02/23/24 13:54 Completed TROPONIN Q4H Lab 02/23/24 12:02 Completed TROPONIN Q4H Lab 02/23/24 16:00 Ordered TROPONIN Q4H Lab 02/23/24 20:00 Ordered UA W/RFX UR CULTURE Stat Lab 02/23/24 13:00 Completed Medication Summary Generic Name Dose Route Start Last Admin Trade Name Orlando PRN Reason Stop Dose Admin Sodium Chloride 1,000 mls @ 250 mls/hr 02/23/24 12:48 02/23/24 13:23 Sodium Chloride 0.9% 1000 Ml IV 02/23/24 16:47 100 mls/hr .Q4H STA Infusion Discontinued Medications Generic Name Dose Route Start Last Admin Trade Name Orlando PRN Reason Stop Dose Admin Sodium Chloride Confirm 02/23/24 12:56 Sodium Chloride 0.9% 1000 Ml Administered 02/23/24 12:57 Dose 1,000 mls @ ud .ROUTE .STK-MED ONE Insulin Human Regular 5 unit 02/23/24 12:46 02/23/24 12:59 Insulin Regular, Human 1 Unit IV 02/23/24 12:47 5 unit STAT STA Administration Insulin Human Regular Confirm 02/23/24 12:56 Insulin Regular, Human 1 Unit Administered 02/23/24 12:57 Dose 5 unit .ROUTE .STK-MED ONE Lab/Rad Data: Laboratory Result Diagrams 02/23/24 12:02 02/23/24 12:02 Laboratory Results 02/23/24 02/23/24 02/23/24 Range/Units 13:54 13:00 12:05 WBC (3.98-10.04) x10^3/uL RBC (3.93-5.22) x10^6/uL Hgb (11.2-15.7) g/dL Hct (34.1-44.9) % MCV (79.4-94.8) fL MCH (25.6-32.2) pg MCHC (32.2-35.5) g/dL RDW (11.7-14.4) % Plt Count (182-369) x10^3/uL MPV (9.4-12.3) fL Gran % (34.0-71.1) % Immature Gran % (Auto) (0.001-0.429) % Nucleat RBC Rel Count (0.00-0.2) % Eos # (Auto) (0.04-0.36) x10^3/uL Immature Gran # (Auto) (0.001-0.031) x10^3u/L Absolute Lymphs (auto) (1.18-3.74) x10^3/uL Absolute Monos (auto) (0.24-0.86) x10^3/uL Absolute Nucleated RBC (0.00-0.012) x10^3u/L Lymphocytes % (19.3-51.7) % Monocytes % (4.7-12.5) % Eosinophils % (0.7-5.8) % Basophils % (0.1-1.2) % Absolute Granulocytes (1.56-6.13) x10^3/uL Basophils # (0.01-0.08) x10^3/uL ESR (0-20) mm/hr Sodium (135-145) mmol/L Potassium (3.5-5.1) mmol/L Chloride (98-107) mmol/L Carbon Dioxide (22-30) mmol/L Anion Gap (5-15) MEQ/L BUN (7-17) mg/dL Creatinine (0.52-1.04) mg/dL Estimated GFR ML/MIN Glucose (74-106) mg/dL POC Glucometer 307 H (74 to 106) mg/dL Lactic Acid 1.5 (0.4-2.0) Calcium (8.4-10.2) mg/dL Total Bilirubin (0.2-1.3) mg/dL AST (14-36) U/L ALT (0-35) U/L Alkaline Phosphatase (38-126) U/L Creatine Kinase (30-135) U/L Troponin I (0.000-0.033) ng/mL NT-Pro-B Natriuret Pep (<300) pg/mL Serum Total Protein (6.3-8.2) g/dL Albumin (3.5-5.0) g/dL Lipase (23-300) U/L Urine Color Yellow (Yellow) Urine Appearance Clear (Clear) Urine pH 6.0 (4.6-8.0) Ur Specific [place] >=1.030 A (1.005-1.030) Urine Protein 100 A (Negative) Urine Glucose (UA) >=1000 A (Negative) mg/dL Urine Ketones 15 A (Negative) Urine Blood Negative (Negative) Urine Nitrite Negative (Negative) Urine Bilirubin Negative (Negative) Urine Urobilinogen 0.2 (0.2) mg/dL Ur Leukocyte Esterase Negative (Negative) U Hyaline Cast (Auto) 3-5 A (0-2) /LPF Urine Microscopic RBC 0-2 (0-5) /HPF Urine Microscopic WBC 0-2 (0-5) /HPF Ur Epithelial Cells None Seen (None Seen) /HPF Urine Bacteria None Seen (None Seen) /HPF Urine Culture Reflexed ORDERED SEPARATELY (NO) 02/23/24 02/23/24 02/23/24 Range/Units 12:02 12:02 12:02 WBC 9.8 (3.98-10.04) x10^3/uL RBC 4.21 (3.93-5.22) x10^6/uL Hgb 12.2 (11.2-15.7) g/dL Hct 37.5 (34.1-44.9) % MCV 89.1 (79.4-94.8) fL MCH 29.0 (25.6-32.2) pg MCHC 32.5 (32.2-35.5) g/dL RDW 13.6 (11.7-14.4) % Plt Count 318 (182-369) x10^3/uL MPV 10.6 (9.4-12.3) fL Gran % 72.1 H (34.0-71.1) % Immature Gran % (Auto) 1.7 H (0.001-0.429) % Nucleat RBC Rel Count 0.0 (0.00-0.2) % Eos # (Auto) 0.23 (0.04-0.36) x10^3/uL Immature Gran # (Auto) 0.17 H (0.001-0.031) x10^3u/L Absolute Lymphs (auto) 1.40 (1.18-3.74) x10^3/uL Absolute Monos (auto) 0.90 H (0.24-0.86) x10^3/uL Absolute Nucleated RBC 0.00 (0.00-0.012) x10^3u/L Lymphocytes % 14.2 L (19.3-51.7) % Monocytes % 9.1 (4.7-12.5) % Eosinophils % 2.3 (0.7-5.8) % Basophils % 0.6 (0.1-1.2) % Absolute Granulocytes 7.08 H (1.56-6.13) x10^3/uL Basophils # 0.06 (0.01-0.08) x10^3/uL ESR 45 H (0-20) mm/hr Sodium 132 L (135-145) mmol/L Potassium 4.9 (3.5-5.1) mmol/L Chloride 99 (98-107) mmol/L Carbon Dioxide 23 (22-30) mmol/L Anion Gap 15.4 H (5-15) MEQ/L BUN 22 H (7-17) mg/dL Creatinine 1.03 (0.52-1.04) mg/dL Estimated GFR 56.7 ML/MIN Glucose 441 H (74-106) mg/dL POC Glucometer (74 to 106) mg/dL Lactic Acid (0.4-2.0) Calcium 9.7 (8.4-10.2) mg/dL Total Bilirubin 1.00 (0.2-1.3) mg/dL AST 34 (14-36) U/L ALT 21 (0-35) U/L Alkaline Phosphatase 280 H (38-126) U/L Creatine Kinase 29 L (30-135) U/L Troponin I < 0.012 (0.000-0.033) ng/mL NT-Pro-B Natriuret Pep 967 (<300) pg/mL Serum Total Protein 7.5 (6.3-8.2) g/dL Albumin 4.0 (3.5-5.0) g/dL Lipase 162 (23-300) U/L Urine Color (Yellow) Urine Appearance (Clear) Urine pH (4.6-8.0) Ur Specific [place] (1.005-1.030) Urine Protein (Negative) Urine Glucose (UA) (Negative) mg/dL Urine Ketones (Negative) Urine Blood (Negative) Urine Nitrite (Negative) Urine Bilirubin (Negative) Urine Urobilinogen (0.2) mg/dL Ur Leukocyte Esterase (Negative) U Hyaline Cast (Auto) (0-2) /LPF Urine Microscopic RBC (0-5) /HPF Urine Microscopic WBC (0-5) /HPF Ur Epithelial Cells (None Seen) /HPF Urine Bacteria (None Seen) /HPF Urine Culture Reflexed (NO) 02/23/24 Range/Units 11:31 WBC (3.98-10.04) x10^3/uL RBC (3.93-5.22) x10^6/uL Hgb (11.2-15.7) g/dL Hct (34.1-44.9) % MCV (79.4-94.8) fL MCH (25.6-32.2) pg MCHC (32.2-35.5) g/dL RDW (11.7-14.4) % Plt Count (182-369) x10^3/uL MPV (9.4-12.3) fL Gran % (34.0-71.1) % Immature Gran % (Auto) (0.001-0.429) % Nucleat RBC Rel Count (0.00-0.2) % Eos # (Auto) (0.04-0.36) x10^3/uL Immature Gran # (Auto) (0.001-0.031) x10^3u/L Absolute Lymphs (auto) (1.18-3.74) x10^3/uL Absolute Monos (auto) (0.24-0.86) x10^3/uL Absolute Nucleated RBC (0.00-0.012) x10^3u/L Lymphocytes % (19.3-51.7) % Monocytes % (4.7-12.5) % Eosinophils % (0.7-5.8) % Basophils % (0.1-1.2) % Absolute Granulocytes (1.56-6.13) x10^3/uL Basophils # (0.01-0.08) x10^3/uL ESR (0-20) mm/hr Sodium (135-145) mmol/L Potassium (3.5-5.1) mmol/L Chloride (98-107) mmol/L Carbon Dioxide (22-30) mmol/L Anion Gap (5-15) MEQ/L BUN (7-17) mg/dL Creatinine (0.52-1.04) mg/dL Estimated GFR ML/MIN Glucose (74-106) mg/dL POC Glucometer 409 H (74 to 106) mg/dL Lactic Acid (0.4-2.0) Calcium (8.4-10.2) mg/dL Total Bilirubin (0.2-1.3) mg/dL AST (14-36) U/L ALT (0-35) U/L Alkaline Phosphatase (38-126) U/L Creatine Kinase (30-135) U/L Troponin I (0.000-0.033) ng/mL NT-Pro-B Natriuret Pep (<300) pg/mL Serum Total Protein (6.3-8.2) g/dL Albumin (3.5-5.0) g/dL Lipase (23-300) U/L Urine Color (Yellow) Urine Appearance (Clear) Urine pH (4.6-8.0) Ur Specific [place] (1.005-1.030) Urine Protein (Negative) Urine Glucose (UA) (Negative) mg/dL Urine Ketones (Negative) Urine Blood (Negative) Urine Nitrite (Negative) Urine Bilirubin (Negative) Urine Urobilinogen (0.2) mg/dL Ur Leukocyte Esterase (Negative) U Hyaline Cast (Auto) (0-2) /LPF Urine Microscopic RBC (0-5) /HPF Urine Microscopic WBC (0-5) /HPF Ur Epithelial Cells (None Seen) /HPF Urine Bacteria (None Seen) /HPF Urine Culture Reflexed (NO) - Progress Progress: improved Progress Note: 02/23/24 12:41 Differential diagnosis includes: PNA, STEMI, NSTEMI, other infection, musculoskeletal pain, pneumothorax, UTI - We'll obtain basic labs, fluids, EKG, troponin, chest x-ray - EKG shows no ST changes - my read - O2 saturations consistently greater than 95%. - CXR shows no pneumonia, pneumothorax - my read - Plan for head CT, infectious workup, UA 02/23/24 14:19 Blood pressure initially high. However it has normalized to the 150s over 80s without any intervention. Most likely due to initial ER presentation, waiting for blood pressure medication to take effect that she took at home. Patient's blood glucose came down to 307 with a one-time IV dose of 5 units of insulin. This is appropriate for dosing and patient's history of diabetes. We encouraged her to go home and continue to take her diabetes medication as prescribed. Per the daughter, there is a chance that she did not take it all this morning or has not been taking it as prescribed. Therefore, I went over the importance of taking all of her medication correctly with the patient and the patient's adult daughter. The patient does live with her adult daughter. Adult daughter states that she will call patient's home health and ask for more help at home that could include helping ensure medication is being given correctly. Head CT did not show any signs of a new stroke, no signs of a UTI, chest x-ray does appear to show no obvious pneumonia. Patient is 99% on room air with clear lung sounds. No leukocytosis. Therefore, less of a chance of infection today. Patient's UA also demonstrates no signs of a UTI. Overall I did ask the family if they felt comfortable going home or if they wanted to be admitted for observation. I prefer admission with a overnight observation in the hospital to continue to ensure that blood glucose comes down appropriately, continue close monitoring, repeat neurological exams. Ultimately, after explaining the risks and benefits, the patient would rather go home and follow-up with PCP. The adult daughter felt comfortable doing this she states that she does live with the patient and therefore could continue to closely monitor and ensure patient is taking medication correctly. They were given strict return precautions. Repeat neurological exam remained unchanged, no obvious acute or developing stroke. Patient was admitted at [facility] last week for pneumonia. She has a follow-up chest x-ray this week with your PCP. She should go ahead and get this done as well. Overall picture consistent with deconditioning from recent hospital stay and pneumonia. Although she appears to no longer be infected I believe that she is deconditioned from the told the infection is taken on her body. I encouraged continue home health, rehab, close PCP follow-up. At this point in time we will discharge patient home. Repeat exam tomorrow with PCP. Return here sooner for new or changing symptoms. 02/23/24 14:24 Counseled pt/family regarding: lab results, diagnosis, need for follow-up, rad results - Departure Departure Disposition: Home Clinical Impression: Generalized weakness, Hyperglycemia Condition: Stable Critical Care Time: No Referrals: SHAHID THOMAS MD [Primary Care Provider] - Follow up/PCP as directed Instructions: High Blood Sugar, Adult (DC)
[2024-02-23] MEDS ORDERED: HUMULIN R ONE (12:56)
[2024-02-23] MEDS ORDERED: Sodium Chloride 0.9% 1000 ML 1,000 ML ONE (12:56)
[2024-02-23] MEDS: HUMULIN R IV STA (12:59)
[2024-02-23] MEDS: Sodium Chloride 0.9% 1000 ML 1,000 ML IV STA (12:59)
--- NOTE | 2024-02-23 13:04 | XRAY ---
CLINICAL HISTORY: generalized weakness COMPARISON: None. TECHNIQUE: An axial non-contrast CT scan of the brain was performed from the skull base to the high parietal region with multiple reformats. One of the following dose reduction techniques were utilized for this exam: Automated exposure control, adjustment of the mA and/or kV according to patient size, and use of iterative reconstruction. FINDINGS: There are rolly ill-defined hypodense areas noted in the periventricular regions bilaterally, suggestive of mild-moderate microvascular ischemic changes. Chronic lacunar infarctions are noted at the bilateral periventricular region as well as the eloy. Prominent ventricular system and sulci due to senile changes No established territorial infarction was identified. No evidence of intracerebral hemorrhage. No extra axial hematoma. [place]-white matter differentiation is maintained. No midline shifts or deformity. Normal CT appearance of the posterior fossa structures namely the cerebellar hemispheres, brainstem, and cerebellar peduncles. The cerebello-pontine angles are clear. The osseous structures in the skull base are unremarkable. IMPRESSION: 1. No evidence of acute infarction or recent hemorrhage. 2. Bilateral periventricular and pontine old lacunar infarctions. 3. There are rolly ill-defined hypodense areas noted in the periventricular region bilaterally, suggestive of mild-moderate microvascular ischemic changes. 4. Prominent ventricular system and sulci due to senile changes 5. The rest of the scan is unremarkable Electronically Signed by: Lea Davenport MD. (02/23/2024 13:00:10 EDT)
[2024-02-23 13:16] LABS: Appearance Clear (Clear); Bacteria None Seen /HPF (None Seen); Bilirubin Negative (Negative); Blood Negative (Negative); Epithelial Cells None Seen /HPF (None Seen); Glucose, Urine >=1000 mg/dL (Negative); Ketones 15 (Negative); Leukocyte Esterase Negative (Negative); Nitrite Negative (Negative); Protein,Urine Dip 100 (Negative); RBC 0-2 /HPF (0-5); Specific Gravity >=1.030 (1.005-1.030); Urobilinogen 0.2 mg/dL (0.2); WBC 0-2 /HPF (0-5)
[2024-02-23 13:30] LABS: ADD URINE CULTURE? ORDERED SEPARATELY (NO)
[2024-02-23 14:23] VITALS: BP 190/62
[2024-02-23 14:25] VITALS: O2SAT 98
--- NOTE | 2024-02-23 19:12 | XRAY ---
Indication: Pneumonia. Weakness. Comparison: August 04, 2022 Portable chest remains inflated and clear with incidental tiny right lung calcified granulomas. Heart not enlarged. Bony thorax intact again with osteopenia and mild degenerative changes. Impression: Continued nonacute chest with chronic features.
== END 2024-02-23 14:30 | disposition home or self-care (01) ==
LOC: ED 11:27
DX: R53.1 Weakness (principal); E11.65 Type 2 diabetes mellitus with hyperglycemia; E78.5 Hyperlipidemia, unspecified; I10 Essential (primary) hypertension; Z79.4 Long term (current) use of insulin; Z79.899 Other long term (current) drug therapy
CPT/HCPCS: 36000; 36415; 70450; 71045; 80053; 81001; 82550; 82947; 83605; 83690; 83880; 84484; 85025; 85652; 87040; 87086; 93005; 93041; 99284; J1815

== ENCOUNTER 2024-04-09 17:47 | Emergency (ER) | payer MEDICARE ==
--- NOTE | 2024-04-09 17:56 | ERPHSYRPT ---
- History of Present Illness Time Seen by Provider: 04/09/24 17:54 Source: patient, EMS Exam Limitations: no limitations Physician History: This is a 73-year-old white female patient who is brought into the emergency department which she actually missed the last step of stairs and fell to the ground. She did not lose consciousness. She is on Plavix. She has headache, injury to the left side of her face and head and neck pain. The paramedics were contacted and they placed a cervical collar in place on this patient. Patient arrives to the emergency department with cervical collar in place. Patient complains of head ache, neck pain, bruising and swelling to left cheek bilateral hand and wrist pain and bilateral knee pain. Patient has history of hypertension, diabetes, hyperlipidemia gastroesophageal reflux disease and CVAs. Patient's daughter reports patient went from laying down to standing up fairly quickly without difficulty. Occurred: just prior to arrival Reason for Fall: lost balance (After missing a step walking down steps) Injuries/Pain Location: head, neck, upper extremity (Bilateral wrists and right hand), lower extremity (Bilateral knees) Loss of Consciousness: no loss of consciousness Quality: aching Severity of Pain-Max: mild Severity of Pain-Current: mild Modifying Factors: Improves With: movement Associated Symptoms (Fall): headache, other (Pain and swelling left cheek), No abdominal pain, No back pain, No confusion, No chest pain, No dizziness, No neck pain Allergies/Adverse Reactions: metformin Allergy (Verified 04/09/24 17:55) Penicillins Allergy (Verified 04/09/24 17:55) Tightness of Throat Sulfa (Sulfonamide Antibiotics) Allergy (Verified 04/09/24 17:55) Nausea Home Medications: Insulin Degludec [Tresiba Flextouch U-200] 25 units SQ DAILY 03/18/19 [History] Insulin Aspart [Novolog] 0 unit SQ TID 02/05/23 [History] Atorvastatin Calcium [Lipitor 20MG Tablet] 80 mg PO DAILY 02/23/24 [History] Famotidine [Pepcid] 1 tab PO DAILY 02/23/24 [History] Metoprolol Succinate 50 mg [Toprol Xl 50 MG] 1 tab PO DAILY 02/23/24 [History] Ergocalciferol (Vitamin D2) [Vitamin D2] 50 mcg PO DAILY 04/09/24 [History] Potassium Chloride 10 meq PO DAILY 04/09/24 [History] Hx Tetanus, Diphtheria Vaccination/Date Given: Yes Hx Influenza Vaccination/Date Given: Yes Hx Pneumococcal Vaccination/Date Given: Yes Travel Risk - International Travel Have you traveled outside of the country in past 3 weeks: No - Emerging Infectious Disease Are you exhibiting symptoms associated with any current EIDs: No - Review of Systems Constitutional: No Symptoms Eyes: No Symptoms Ears, Nose, & Throat: Other (Pain and swelling left cheek) Respiratory: No Symptoms Cardiac: No Symptoms Abdominal/Gastrointestinal: No Symptoms Genitourinary Symptoms: No Symptoms Musculoskeletal: Neck Pain, Fall, Injury Skin: No Symptoms Neurological: Headache Psychological: No Symptoms Endocrine: No Symptoms Hematologic/Lymphatic: No Symptoms Immunological/Allergic: No Symptoms All Other Systems: Reviewed and Negative - Past Medical History Pertinent Past Medical History: Yes Neurological History: Stroke, TIA ENT History: No Pertinent History Cardiac History: High Cholesterol, Hypertension Respiratory History: No Pertinent History Endocrine Medical History: Diabetes Type II Musculoskeletal History: Arthritis GI Medical History: GERD, Gallbladder Disease History: No Pertinent History Psycho-Social History: No Pertinent History Female Reproductive Disorders: No Pertinent History Other Medical History: -SWELLING IN BLE. -PSH: GALLBLADDER, PEG-TUBE - Past Surgical History Past Surgical History: Yes Neuro Surgical History: No Pertinent History Cardiac: No Pertinent History Respiratory: No Pertinent History Gastrointestinal: Cholecystectomy Genitourinary: No Pertinent History Musculoskeletal: No Pertinent History Female Surgical History: No Pertinent History Other Surgical History: colonoscopy w/ polyps removed Significant Family History: no pertinent family hx - Social History Smoking Status: Former smoker How long have you smoked: 11 years Exposure to second hand smoke: No Alcohol Use: None Drug Use: none Patient Lives Alone: Yes - Social Determinants of Health Will the patient participate in the screening: Yes Do you worry about a steady place to live?: No In the past 12 months,have you had to go without utilities?: No Transportation Issues: No Has anyone in your support network made you feel unsafe?: No Have you or anyone in your house had to go without enough: No - Nursing Vital Signs Nursing Vital Signs: Initial Vital Signs Pulse Rate 72 04/09/24 17:53 Respiratory Rate 24 04/09/24 17:53 Blood Pressure 200/74 04/09/24 17:53 O2 Sat by Pulse Oximetry 98 04/09/24 17:53 Pain Scale Pain Intensity 3 - Drew Coma Score Best Eye Response (Adriane): (4) open spontaneously Best Verbal Response (Adriane): (5) oriented Best Motor Response (Adriane): (6) obeys commands Adriane Total: 15 - Physical Exam General Appearance: no apparent distress, alert Head Injury: contusions (Left cheek), swelling (Left cheek), tenderness (Left cheek) Eye Exam: PERRL/EOMI, eyes nml inspection ENT Exam: airway nml Neck Exam: trachea midline, c-collar in place (Patient brought into the emergency department by the paramedics) Respiratory/Chest Exam: normal breath sounds, No chest tenderness, No respiratory distress, No ecchymosis, No crepitus Cardiovascular Exam: normal heart sounds, regular rate/rhythm Gastrointestinal Exam: soft, normal bowel sounds, No tenderness Rectal Exam: not done Back Exam: normal inspection, normal range of motion, No CVA tenderness, No vertebral tenderness Extremity Exam: normal inspection, normal range of motion, tenderness (Right wrist and hand left wrist, bilateral anterior knees) Neurologic Exam: alert, oriented x 3, cooperative, sewing demonstrator II-XII nml as tested, normal mood/affect, sensation nml Skin Exam: normal color, warm, dry SpO2 Interpretation: normal O2 Delivery: Room Air - Course Nursing assessment & vital signs reviewed: Yes Ordered Tests: Active Orders 24 hr Category Date Time Status CERVICAL SPINE WO CONTRAST [CT] Stat Exams 04/09/24 18:08 Taken FACIAL BONES WO CONTRAST [CT] Stat Exams 04/09/24 18:10 Taken HAND (MINIMUM 3 VIEWS) Stat Exams 04/09/24 18:08 Taken HEAD WITHOUT CONTRAST [CT] Stat Exams 04/09/24 18:08 Taken KNEE (3 VIEWS) Stat Exams 04/09/24 18:08 Taken KNEE (3 VIEWS) Stat Exams 04/09/24 18:43 Taken WRIST (MIN 3 VIEWS) Stat Exams 04/09/24 18:08 Taken WRIST (MIN 3 VIEWS) Stat Exams 04/09/24 18:43 Taken - Progress Progress: improved, pain not gone completely Progress Note: 04/09/24 19:22 My medical decision making and the assignment of low to moderate complexity to this patient's medical issue today is based on review of the patient's past medical history, review the patient medication list, review of patient drug allergy list, history present illness and physical findings on examination. The workup in this patient includes x-ray of the left wrist, x-ray of the right wrist, x-ray of the right hand, x-ray of bilateral knees, CT scan of the head without contrast, CT scan of the cervical spine without contrast, CT scan of the face without contrast. The preliminary reports of the bilateral knees were interpreted by me. There are no acute fractures or dislocations on either knee. The preliminary reports of bilateral wrists were interpreted by me. There are no acute fractures or dislocations on either wrist exam study. The preliminary report of the right hand x-ray was interpreted by me. There is no evidence of any acute fracture or dislocations. 04/09/24 20:04 CT scan of the cervical spine was interpreted by the radiologist and I reviewed the impression. The impression states no comparison films available. Negative for fracture or subluxation. There is multilevel degenerative disc disease present. CT scan of the facial bones was interpreted by the radiologist and I reviewed the impression. The impression states no comparison films. This study is negative for acute fracture or dislocation. CT scan of the head without contrast was compared to the similar study dated 02/23/2024 and interpreted by the radiologist. The impression states nonacute senile brain Counseled pt/family regarding: diagnosis, need for follow-up, rad results Medical Desision Making - Independent Historian Additional History obtained from: Family - Diagnostic Testing Diagnostic test were ordered, analyzed, and reviewed by me: Yes Radiological Interpretation: Reviewed by me, Teleradiologist Report - Risk of complications Low Risk: Low risk of morbidity from additional dx testing or treatment - Departure Departure Disposition: Home Clinical Impression: Fall with no significant injury, Multiple contusions Condition: Stable Critical Care Time: No Referrals: SHAHID THOMAS MD [Primary Care Provider] - Follow up/PCP as directed Additional Instructions: Continue your medication as prescribed. Ice pack to tender areas 3 times a day for the next 48 hours. If there are no contraindications, you may use Tylenol for pain control. Avoid sedating drugs for at least 24 hours before restarting. Call your primary care provider tomorrow, 04/10/2024, to make arranges for follow-up appointment for further evaluation and management.
[2024-04-09 17:57] VITALS: TEMP 97.4
[2024-04-09] MEDS ORDERED: HUMULIN R ONE (20:30)
[2024-04-09] MEDS: HUMULIN R IV ONE (20:31)
[2024-04-09 21:14] VITALS: BP 150/64; PULSE 68; RESP 20; O2SAT 100
--- NOTE | 2024-04-09 22:21 | XRAY ---
Indication: Left periorbital injury following fall. Multiple contiguous axial images obtained through the head without contrast. Comparison: February 23, 2024 Again age-appropriate global atrophy and moderate periventricular degenerative micro-ischemia bilaterally. No acute intracranial hemorrhage, abnormal extra-axial fluid collection, or mass effect. Fourth ventricle is midline without hydrocephalus. Bony calvarium intact. Visualized paranasal sinuses and mastoid air cells are clear. Impression: Continued nonacute senile brain.
--- NOTE | 2024-04-09 22:23 | XRAY ---
Indication: Left periorbital injury following fall. Multiple contiguous axial images obtained through the cervical spine. Sagittal and coronal reformatted images obtained. Comparison: None Osseous structures demineralized consistent with patient's age. Axial images negative for acute fracture, suspicious bone lesions, or spinal canal stenosis. Mild C3-C7 degenerative endplate spurring and mild multilevel bilateral degenerative facet hypertrophy. Sagittal and coronal reformatted images demonstrate normal cervical lordosis with mild levoscoliosis centered at C4. C3-C7 disc space narrowing. No acute compression fracture, subdural excision, or jumped facet. Normal appearing craniocervical junction. Visualized noncontrasted soft tissues demonstrates mild left and minimal right carotid calcifications. Patient is edentulous. Lung apices clear. Impression: 1. Negative acute fracture/subluxation. 2. Osteopenia, multilevel degenerative changes, and carotid calcifications.
--- NOTE | 2024-04-09 22:25 | XRAY ---
Indication: Left periorbital injury following fall. Multiple contiguous axial images obtained through the facial bones. Sagittal and coronal reformatted images obtained. Comparison: None Osseous structures demineralized consistent with patient's age. Patient is edentulous. No acute fracture, suspicious bone lesions, or radiopaque foreign body. Orbits including roof, brewster, and floors intact. Minimal mucosal thickening floor left maxillary sinus. Remaining paranasal sinuses and nasal passages are clear. Mild nasal septal deviation to the left. TMJ demonstrates degenerative changes, left greater than right. Visualized noncontrasted soft tissues are unremarkable. CT head and CT cervical spine report separately. Impression: 1. Negative acute fracture. 2. Osteopenia, minimal left maxillary sinus disease, and bilateral TMJ degenerative changes.
--- NOTE | 2024-04-09 22:27 | XRAY ---
Indication: Status post fall. Comparison: None 3 view right wrist demonstrates osteopenia and mild 1st/2nd metacarpal multangular degenerative changes. Abnormal widening scapholunate interval suggesting underlying ligament is tear. No other bony, articular, or soft tissue abnormalities.
--- NOTE | 2024-04-09 22:29 | XRAY ---
Indication: Status post fall. Comparison: None 3 view right hand demonstrates osteopenia and minimal/mild degenerative changes all IP joints. No other bony, articular, or soft tissue abnormalities. Wrist reported separately.
--- NOTE | 2024-04-09 22:29 | XRAY ---
Indication: Pain. Status post fall. Comparison: None 3 view left wrist demonstrates osteopenia and mild 1st metacarpal multangular degenerative changes. No other bony, articular, or soft tissue abnormalities
--- NOTE | 2024-04-09 22:30 | XRAY ---
Indication: Pain following fall. Comparison: None 3 view right knee demonstrates osteopenia, minimal medial joint space narrowing, and moderate scattered vascular calcifications. No other bony, articular, or soft tissue abnormalities.
--- NOTE | 2024-04-09 22:31 | XRAY ---
Indication: Pain following fall. Comparison: None 3 view left knee demonstrates osteopenia and moderate scattered vascular calcifications. No other bony, articular, or soft tissue abnormalities.
== END 2024-04-09 21:21 | disposition home or self-care (01) ==
LOC: ED 17:47
DX: S00.83XA Contusion of other part of head, initial encounter (principal); S60.212A Contusion of left wrist, initial encounter; S60.211A Contusion of right wrist, initial encounter; S60.221A Contusion of right hand, initial encounter; S80.02XA Contusion of left knee, initial encounter; S80.01XA Contusion of right knee, initial encounter; W10.9XXA Fall (on) (from) unspecified stairs and steps, initial encounter; R51.9 Headache, unspecified; I10 Essential (primary) hypertension; E11.9 Type 2 diabetes mellitus without complications; E78.5 Hyperlipidemia, unspecified; Z79.4 Long term (current) use of insulin; Z79.899 Other long term (current) drug therapy
CPT/HCPCS: 36000; 70450; 70486; 72125; 73110; 73130; 73562; 82947; 96374; 99284; J1815

== ENCOUNTER 2025-05-25 17:56 | Emergency (ER) | payer MEDICARE ==
--- NOTE | 2025-05-25 18:15 | ERPHSYRPT ---
- History of Present Illness Time Seen by Provider: 05/25/25 18:15 Source: patient, family Exam Limitations: no limitations Physician History: This is a 74-year-old white female patient arrives by private vehicle and is a patient Dr. Thomas and is accompanied by family/restaurant service manager. Patient began coughing 2 days ago and she is fatigued secondary to coughing. She denies chest pain. She denies shortness of breath. She denies abdominal pain. She has had no vomiting or diarrhea symptoms. Her room air oxygen saturation level is 98%. Heart rate on the monitor is showing her heart rate to be in the 60s and a normal sinus rhythm pattern. Timing/Duration: yesterday, day(s) Cough Quality/Degree: mild, dry cough Possible Cause: occasional episodes Modifying Factors: Improves With: coughing Associated Symptoms: cough, No fever, No chest pain/soreness, No muscle aches, No nasal congestion, No shortness of breath, No sore throat Allergies/Adverse Reactions: metformin Allergy (Verified 05/25/25 18:11) Penicillins Allergy (Verified 05/25/25 18:11) Tightness of Throat Sulfa (Sulfonamide Antibiotics) Allergy (Verified 05/25/25 18:11) Nausea Home Medications: Insulin Degludec [Tresiba Flextouch U-200] 25 units SQ DAILY 03/18/19 [History] Insulin Aspart [Novolog] 0 unit SQ TID 02/05/23 [History] Atorvastatin Calcium [Lipitor 20MG Tablet] 80 mg PO DAILY 02/23/24 [History] Famotidine [Pepcid] 1 tab PO DAILY 02/23/24 [History] Metoprolol Succinate 50 mg [Toprol Xl 50 MG] 1 tab PO DAILY 02/23/24 [History] Ergocalciferol (Vitamin D2) [Vitamin D2] 50 mcg PO DAILY 04/09/24 [History] Potassium Chloride 10 meq PO DAILY 04/09/24 [History] Hx Tetanus, Diphtheria Vaccination/Date Given: Yes Hx Influenza Vaccination/Date Given: Yes Hx Pneumococcal Vaccination/Date Given: Yes Travel Risk - International Travel Have you traveled outside of the country in past 3 weeks: No - Emerging Infectious Disease Are you exhibiting symptoms associated with any current EIDs: Yes Symptoms: Cough: New Onset - Review of Systems Constitutional: Other (Tired but not weak) Eyes: No Symptoms Ears, Nose, & Throat: No Symptoms Respiratory: Cough Cardiac: No Symptoms Abdominal/Gastrointestinal: No Symptoms Genitourinary Symptoms: No Symptoms Musculoskeletal: No Symptoms Skin: No Symptoms Neurological: No Symptoms Psychological: No Symptoms Endocrine: No Symptoms Hematologic/Lymphatic: No Symptoms Immunological/Allergic: No Symptoms All Other Systems: Reviewed and Negative - Past Medical History Neurological History: Stroke Cardiac History: Hypertension Respiratory History: Pneumonia Endocrine Medical History: Diabetes Type II, Other Musculoskeletal History: Osteoarthritis Other Medical History: KIDNEY PROBLEMS - Past Surgical History Past Surgical History: Yes Neuro Surgical History: No Pertinent History Cardiac: No Pertinent History Respiratory: No Pertinent History Gastrointestinal: Cholecystectomy Genitourinary: No Pertinent History Musculoskeletal: No Pertinent History Female Surgical History: No Pertinent History Other Surgical History: colonoscopy w/ polyps removed Significant Family History: no pertinent family hx - Social History Smoking Status: Former smoker How long have you smoked: 11 years Exposure to second hand smoke: No Alcohol Use: None Drug Use: none Patient Lives Alone: Yes - Social Determinants of Health Will the patient participate in the screening: Yes Do you worry about a steady place to live?: No In the past 12 months,have you had to go without utilities?: No Transportation Issues: No Has anyone in your support network made you feel unsafe?: No Have you or anyone in your house had to go w/o enough food: No - Nursing Vital Signs Nursing Vital Signs: Initial Vital Signs Temperature 97.3 F 05/25/25 18:17 Pulse Rate 64 05/25/25 18:17 Respiratory Rate 16 05/25/25 18:17 Blood Pressure 190/77 05/25/25 18:17 O2 Sat by Pulse Oximetry 97 05/25/25 18:17 Pain Scale Pain Intensity 0 - Physical Exam General Appearance: no apparent distress, alert Eye Exam: PERRL/EOMI, eyes nml inspection Ears, Nose, Throat Exam: normal ENT inspection, moist mucous membranes Neck Exam: normal inspection, non-tender, supple, full range of motion Respiratory Exam: normal breath sounds, lungs clear, airway intact, No chest tenderness, No respiratory distress Cardiovascular Exam: regular rate/rhythm, normal heart sounds, normal peripheral pulses Gastrointestinal/Abdomen Exam: soft, normal bowel sounds, No tenderness Pelvic Exam: not done Rectal Exam: not done Back Exam: normal inspection, normal range of motion, No CVA tenderness, No vertebral tenderness Extremity Exam: normal inspection, normal range of motion, pelvis stable Neurologic Exam: alert, oriented x 3, cooperative, data keyer II-XII nml as tested, normal mood/affect, nml cerebellar function, nml station & gait, sensation nml Skin Exam: normal color, warm, dry Lymphatic Exam: No adenopathy SpO2 Interpretation: normal O2 Delivery: Room Air - Course Nursing assessment & vital signs reviewed: Yes Ordered Tests: Active Orders 24 hr Category Date Time Status CHEST 1 VIEW (PORTABLE) Stat Exams 05/25/25 18:26 Taken Lab/Rad Data: Laboratory Results 05/25/25 Range/Units 18:10 Influenza Type A Ag NEGATIVE (NEGATIVE) Influenza Type B Ag NEGATIVE (NEGATIVE) RSV (PCR) NEGATIVE (NEGATIVE) SARS-CoV-2 (PCR) NEGATIVE (NEGATIVE) Group A Strep Antibody NOT DETECTED (NEGATIVE) - Progress Progress: improved, re-examined Air Movement: good Progress Note: 05/25/25 19:08 My medical decision making and the assignment of moderate complexity of this patient's medical issue today is based on review of the patient's past medical history, review the patient's medication list, reviewed patient drug allergy list, history of present illness and physical findings on examination. The workup in this patient includes chest x-ray, viral swabs and group A strep test. Differential diagnosis includes but is not limited to viral illness, upper respiratory infection, pneumonia, strep pharyngitis 05/25/25 19:54 I interpreted the patient's laboratory data results. Based on the laboratory data results, there are no acute, emergent medical issues. I interpreted the preliminary chest x-ray report on this patient. I see no acute cardiopulmonary process. There are chronic changes present Blood Culture(s) Obtained: No Antibiotics given: No Counseled pt/family regarding: lab results, diagnosis, need for follow-up, rad results Medical Desision Making - Diagnostic Testing Diagnostic test were ordered, analyzed, and reviewed by me: Yes Radiological Interpretation: Interpreted by me - Risk of complications Low Risk: Low risk of morbidity from additional dx testing or treatment The pt has a mod risk of morbidity or mortality based on: Need for prescription drug management - Departure Departure Disposition: Home Clinical Impression: Coughing, Bronchitis Condition: Stable Critical Care Time: No Referrals: SHAHID THOMAS MD [Primary Care Provider, [facility]] - Follow up/PCP as directed Additional Instructions: Avoid all exposure to smoke. Drink plenty of fluids. Take your medications as prescribed. Monitor your blood sugar level closely when taking the steroids. Call your primary care provider tomorrow, 05/26/2025, to make arrangements for follow-up appointment for further evaluation management Prescriptions: Benzonatate 200 mg PO TID PRN #10 cap PRN Reason: Cough Prednisone 5 mg [Deltasone 5 mg] 5 mg PO TID #12 tablet
[2025-05-25 18:58] LABS: Group A Strep NOT DETECTED (NEGATIVE)
[2025-05-25 19:35] VITALS: BP 171/72; PULSE 62; RESP 15; TEMP 97; O2SAT 99
[2025-05-25 19:39] LABS: INFLUENZA A NEGATIVE (NEGATIVE); INFLUENZA B NEGATIVE (NEGATIVE); RESPIRATORY SYNCTIAL VIRUS NEGATIVE (NEGATIVE); SARS-CoV-2 Xpert Express NEGATIVE (NEGATIVE)
[2025-05-25] MEDS ORDERED: Tessalon Perles 100 MG PO ONE (20:04)
[2025-05-25] MEDS ORDERED: DELTASONE 20 MG ONE (20:04)
[2025-05-25] MEDS: Tessalon Perles 100 MG PO ONE (20:05)
[2025-05-25] MEDS: DELTASONE 20 MG PO ONE (20:05)
--- NOTE | 2025-05-25 21:48 | XRAY ---
Indication: Cough. Comparison: January 28, 2025 Portable chest again demonstrates COPD and tiny right lung calcified granuloma. Remaining heart and lungs unremarkable. Bony thorax intact again with osteopenia and degenerative changes. No new/acute findings.
== END 2025-05-25 21:02 | disposition home or self-care (01) ==
LOC: ED 17:56
DX: J40 Bronchitis, not specified as acute or chronic (principal); R05.1 Acute cough; I10 Essential (primary) hypertension; E11.9 Type 2 diabetes mellitus without complications; Z79.52 Long term (current) use of systemic steroids; Z79.4 Long term (current) use of insulin; Z79.899 Other long term (current) drug therapy